=== PATIENT | male | born 1955 | race Caucasian/White ===

== ENCOUNTER → 2018-07-25 09:41 | Outpatient (CLI) | payer BC, SELFPAY ==
[2018-07-25 13:06] LABS: ALB/GLOB Ratio 0.9 RATIO (0.9-2.4); AST(SGOT) 25 U/L (15-37); Alanine Aminotransfer ALT/SGPT 52 U/L (16-61); Albumin, Serum 3.7 g/dL (3.2-5.0); Alkaline Phosphatase 79 U/L (45-117); Anion Gap 8 (5-15); BUN 19 mg/dL (7-18); BUN/Creat Ratio 18.4 RATIO (10-20); Calcium,Total 8.9 mg/dL (8.5-10.1); Chloride 106 mmol/L (98-107); Creatinine, Serum 1.03 mg/dL (0.70-1.30); EST Glomerular Filtration Rate 77 mL/min (>60); Est Glom Filt Rate - Afr Amer 94 mL/min (>60); Globulin 4.1 g/dL (2.2-4.2); Glucose 92 mg/dL (74-106); PSA,Total - Annual Screen 0.86 ng/mL (0.00-4.00); Potassium 3.9 mmol/L (3.5-5.1); Protein, Total 7.8 g/dL (6.4-8.2); Sodium Level 141 mmol/L (136-145)
== END ==
PROVIDERS: Family Provider Family Medicine; PCP Family Medicine; Referring Provider Family Medicine; Visit Provider Family Medicine
DX: Z00.00 Encounter for general adult medical examination without abnormal findings (principal); E78.5 Hyperlipidemia, unspecified
CPT/HCPCS: 36415; 80053; 84153; G0103

== ENCOUNTER → 2018-07-31 09:56 | Outpatient (CLI) | payer BC, SELFPAY ==
[2018-07-31 12:33] LABS: AST(SGOT) 20 U/L (15-37); Alanine Aminotransfer ALT/SGPT 43 U/L (16-61); Albumin, Serum 3.7 g/dL (3.2-5.0); Alkaline Phosphatase 81 U/L (45-117); Bilirubin, Direct 0.21 mg/dL (0.00-0.30); Globulin 3.7 g/dL (2.2-4.2); Protein, Total 7.4 g/dL (6.4-8.2)
== END ==
PROVIDERS: Family Provider Family Medicine; PCP Family Medicine; Referring Provider Family Medicine; Visit Provider Family Medicine
DX: R17 Unspecified jaundice (principal)
CPT/HCPCS: 36415; 80076

== ENCOUNTER 2019-01-06 19:34 | Inpatient (IN) | payer BC, SELFPAY ==
[2019-01-06] VITALS (9 sets, daily range): BP systolic 150–199; BP diastolic 89–102; PULSE 70–80; RESP 15–18; TEMP 36.5–36.9; O2SAT 94–99; BMI 35.2; BMI 36.0
--- NOTE | 2019-01-06 19:49 | EKG12_ITS ---
Test Reason : CP Blood Pressure : / mmHG Vent. Rate : 070 BPM Atrial Rate : 070 BPM P-R Int : 166 ms QRS Dur : 094 ms QT Int : 402 ms P-R-T Axes : 052 053 058 degrees QTc Int : 434 ms Normal sinus rhythm Normal ECG Confirmed by EDEN REMY, GANESH ([id number]), society editor ILEANA MIRELES ([id number]) on 01/09/2019 1:36:16 PM Referred By: ALEXI Confirmed By:GANESH HARMON MD
--- NOTE | 2019-01-06 19:49 | ED.VIS.GEN ---
History of Present Illness Chief Complaint: Chest Pain Informant: Patient Onset: Hours - 5-6 Context: Sudden Onset - w/ light exertion, walking for exercise; has not resolved since resting Timing: Continuous, Waxes and wanes Quality: pressure Location: substernal. no radiation. Current Severity: Mild Maximum Severity: Moderate Worsened by: nothing. nonpleuritic. Relieved by: nothing in particular. Associated Symptoms: none. Narrative: Patient states he has had heartburn before but this feels different. He took some Tums and and an acid capsule that may have been either H2 diamond or PPI, those medicines did not seem to do anything, he states usually when he takes these for his reflux symptoms his symptoms resolve quickly. He denies any nausea or vomiting. He has not tried to lie down to see if that changes anything. No shortness of breath, lightheadedness, he did feel a thump or 2 off and on but no skipping/racing palpitations. No diaphoresis that was not associated with his activity. He had a stress test 5 years ago or so that was unremarkable but no history of heart disease that he knows of. He does have a first-degree relative that had his first stent in his 50s, and multiple other family members with coronary issues. - Past Medical History (1) Hypertension Status: Chronic (2) Hyperlipidemia Status: Chronic Past Medical History - Allergies and Home Meds Allergies/Adverse Reactions: Allergies No Known Allergies Allergy (Verified 01/06/19 19:39) Primary Care Physician: Moshe Lehman MD [Primary Care Provider] - Lives: Spouse/ Significant Other Smoking Status: Never smoker Drugs: None Review of Systems General: Denies: Chills, Fever, Sweats Eyes: Denies: Visual changes - bilaterally, Diplopia ENT: Denies: Rhinorrhea, Sore throat Cardiovascular: Reports: Chest pain, Palpitations. Denies: Heart racing Respiratory: Denies: Dyspnea, Cough, Dyspnea on exertion Gastrointestinal: Denies: Abdominal pain, Nausea, Vomiting, Diarrhea, Melena, Hematochezia Genitourinary: Denies: Dysuria, Hematuria, Frequency Musculoskeletal: Denies: Back pain, Swelling, Extremity Pain Skin: Denies: Rash, Wounds Neurological: Denies: Headache, Weakness, Numbness Physical Exam Vital Signs/Narrative: Vital Signs Temp Pulse Resp BP 01/06/19 19:35 97.7 F L 78 15 199/102 H Inital Vital Signs reviewed: Yes General: Well nourished, Well developed, No Acute Distress Head: Normocephalic, Atraumatic Eyes: Perrl, EOMI ENT: Moist mucous membranes, No rhinorrhea Neck: Supple, Nontender, No lymphadenopathy, No JVD Cardiovascular: Regular rate, Regular rhythm, No murmurs Respiratory: No distress, CTA bilaterally, Chest nontender Abdomen: Soft, Nontender, Nondistended, Normal bowel sounds. Negative for: Guarding, Rebound tenderness Back: Nontender, Normal Inspection Extremities: Nontender, No edema. Negative for: Calf Tenderness Skin: Normal color, No rash Neurological: Alert, Oriented x3, Cranial nerves II-XII grossly intact, Normal Strength, Normal Sensation Psychological: Normal affect, Normal Mood Diagnostic/Tx/Re-eval 01/06/19 20:15 Chest PA and Lateral [RAD] Stat Laboratory Results 01/06/19 01/06/19 01/06/19 20:00 20:00 20:00 WBC 5.8 RBC 4.76 Hgb 14.6 Hct 43.3 MCV 91.0 MCH 30.7 MCHC 33.7 RDW 12.8 RDW Differential 42.4 Plt Count 174 MPV 9.1 Immature Gran % (Auto) 0.000 Neut % (Auto) 63.6 Lymph % (Auto) 24.7 [place] % (Auto) 9.7 Eos % (Auto) 1.7 Baso % (Auto) 0.3 Absolute Neuts (auto) 3.7 Absolute Lymphs (auto) 1.43 Total Counted Not Reportable APTT 30.3 Sodium 141 Potassium 3.8 Chloride 105 Carbon Dioxide 28.0 Anion Gap 8 BUN 19 H Creatinine 1.08 Estim Creat Clear Calc 76.84 Est GFR (MDRD) Af Amer 89 Est GFR (MDRD) Non-Af 73 BUN/Creatinine Ratio 17.6 Glucose 105 Calcium 9.2 Troponin I 0.531 H - Rhythm Strip Rhythm Strip: Sinus Rhythm Rate: 70 Ectopy: None - EKG Initial EKG Interpretation: Sinus Rhythm, No Acute Injury Pattern - Normal EKG. Normal axis. Normal intervals. - Medical Decision Making EKG appears normal, but his troponin returned elevated at 0.5. This suggests cardiac etiology of his discomfort. On reevaluation he states his discomfort is about completely gone and he declined any of the nitroglycerin, which is likely why his blood pressure is still in the 170s. I will placed nitroglycerin 1 inch on his chest, and after discussing with Dr. Whittington, will admit him to hospitalist after giving Lovenox subcu and Plavix 300 mg load. The rest of his blood tests and x-ray are unremarkable. ED Disposition - Plan for ED Patient: Disposition: Acute Care Hospital [facility] Diagnosis: ACS (acute coronary syndrome) Referrals: Moshe Lehman MD [Primary Care Provider] -
[2019-01-06] MEDS: Aspirin 81 MG TAB.CHEW 162 MG PO (20:02)
[2019-01-06] MEDS: 0.9% Normal Saline 1,000 ML 250 ML IV (20:02)
[2019-01-06 20:11] LABS: Absolute Lymphocyte Count 1.43 X10^3/ul (0.83-4.51); Absolute Neutrophil Count 3.7 X10^3/uL (2.0-7.7); Basophil# 0.02 X10^3/uL; Basophil% 0.3 % (0-1); Eosinophils% 1.7 % (0-5); Hematocrit 43.3 % (40-54); Hemoglobin 14.6 g/dl (13.0-16.5); Lymphocyte # 1.43 X10^3/ul (4.0); Lymphocyte % 24.7 % (19-41); Mean Corp Hgb Conc 33.7 g/gl (32-36); Mean Corpuscular Hgb 30.7 pg (27.0-32.0); Mean Platelet Vol. 9.1 fl (6.2-12.0); Monocyte# 0.56 X10^3/uL; Monocyte% 9.7 % (0-10); Neutrophil # 3.68 X10^3/uL (2.7-7.7); Neutrophil % 63.6 % (47-70); Platelet Count 174 K/mm3 (150-450); RBC Distribution Width CV 12.8 % (11.6-14.6); RBC Distribution Width SD 42.4 fl (35.1-43.9); Red Blood Count 4.76 M/mm3 (4.6-6.2); White Blood Count 5.8 K/mm3 (4.4-11.0)
[2019-01-06 20:12] LABS: POSITIVE COUNT NO; POSITIVE DIFFERENTIAL NO; POSITIVE MORPHOLOGY NO
--- NOTE | 2019-01-06 20:15 | RAD_ITS ---
HISTORY: mid chest pain onset todayno hx of heart lung disease no sx EXAM: XR Chest 2 Views: COMPARISON: None FINDINGS: LINES/DEVICES: None. LUNGS: Radiographically clear. No consolidation, edema or effusion. No pneumothorax. MEDIASTINUM AND CARDIOVASCULAR STRUCTURES: Cardiac silhouette not enlarged. Central airways and mediastinal contour are unremarkable. BONES AND SOFT TISSUES: Unremarkable. RAD/Chest PA and Lateral IMPRESSION: No radiographic evidence of acute cardiopulmonary disease. at 2127 Reported and signed by: Aniceto Petersen MD Electronically Signed: Aniceto Petersen, at 21:25 EDT Tel , Service support ,
[2019-01-06 20:20] LABS: Partial Thromboplast Time 30.3 Seconds (24.1-36.2)
[2019-01-06 20:29] LABS: Anion Gap 8 (5-15); BUN 19 mg/dL (7-18); BUN/Creat Ratio 17.6 RATIO (10-20); Calcium,Total 9.2 mg/dL (8.5-10.1); Chloride 105 mmol/L (98-107); Creatinine, Serum 1.08 mg/dL (0.70-1.30); EST Glomerular Filtration Rate 73 mL/min (>60); Est Glom Filt Rate - Afr Amer 89 mL/min (>60); Estimated Creatinine Clearance 76.84 ml/min; Glucose 105 mg/dL (74-106); Potassium 3.8 mmol/L (3.5-5.1); Sodium Level 141 mmol/L (136-145)
[2019-01-06] MEDS: Clopidogrel Bisulfate 300 MG Tablet PO (21:37)
[2019-01-06] MEDS: Enoxaparin 120 MG/0.8 ML Syringe SC (21:37)
[2019-01-06] MEDS: Nitroglycerin Oint 1 INCH PACKET TRANSDERM. (21:37)
--- NOTE | 2019-01-06 21:47 | PCM.CONS.C ---
Reason for Consult Date of Consultation: 01/06/19 Reason for Consultation: Chest discomfort History of Present Illness: The patient is a 63 year old M with no previous cardiac history who presented here to the emergency room complaining of chest discomfort starting this afternoon while he was taking his walk. It was shortly after he had eaten some lunch. There was no radiation per se of the discomfort but he felt it as a heaviness. There was no dizziness or diaphoresis no near syncope or syncope. He thinks he may have had this discomfort before but not as severe. He did take an antacid with no significant improvement. In the emergency room he was noted to be hypertensive and EKG was done which did not demonstrate any significant abnormality, but cardiac enzymes were noted to be abnormal and cardiology was called for further evaluation and management. He is currently pain-free. He is not had any dizziness or diaphoresis no near syncope or syncope no paroxysmal nocturnal dyspnea orthopnea and no pedal edema or claudication. He did have a stress test he says approximately 5 years ago which was normal. [] Past Medical History Allergies/Adverse Reactions: Allergies No Known Allergies Allergy (Verified 01/06/19 19:39) Home Medications: Ambulatory Orders Medication Instructions Recorded Aspirin, Baby 81 mg PO DAILY 01/06/19 Atorvastatin Calcium [Lipitor] 10 mg PO QODAY 01/06/19 Past Medical History (Chronic Problems): Chronic Problems Hypertension (Chronic) Hyperlipidemia (Chronic) Lives: Spouse/ Significant Other Smoking Status: Never smoker Alcohol: Occasional Drugs: None Review of Systems - Review of Systems General: Denies: Fever, Night Sweats, Fatigue HEENT: Denies: Vision Change Cardiovascular: Reports: Chest Discomfort, Chest Discomfort at Rest, Chest Discomfort with Exertion. Denies: Shortness of Breath, Orthopnea, PND, Peripheral Edema, Palpitations, Lightheadedness, Dizziness, Near Syncope, Syncope Respiratory: Denies: Cough, Sputum Production, Hemoptysis Gastrointestinal: Reports: Indigestion. Denies: Hematemesis, Hematochezia, Melena Genitourinary: Denies: Dysuria, Hematuria Muscoloskeletal: Denies: Myalgias Skin: Denies: Rash Neurological: Denies: Dizziness Psychiatric: Denies: Anxiety Endocrine: Denies: Unexplained Weight Loss Hematologic/ Lymphatic: Denies: Anemia Subjectve: Pleasant gentleman in no apparent distress Objective: Vital Signs Temp Pulse Resp BP Pulse Ox 97.7 F L 77 18 162/91 H 98 01/06/19 19:35 01/06/19 21:37 01/06/19 21:03 01/06/19 21:37 01/06/19 21:03 Oxygen Flow Rate (L/min) 2 Oxygen Delivery Method Room Air Weight: 260 lb Body Mass Index (BMI) 35.2 General: Awake, Alert, Oriented x 3 HEENT: PERRL, EOMI, Sclera Non Icteric Neck: Supple, Good ROM, No Lymph Node Enlargement Lungs: Clear to auscultation Cardiovascular: Regular Rhythm, Normal S1, Normal S2, No Murmurs, No Rubs, No Gallops Vascular: No Carotid Bruits, Normal Femoral Pulses, Normal Radial Pulses, Normal Dorsalis Pedal Pulse, Normal Posterior Tibial Pulses Abdomen: Bowel Sounds Present, Soft, Non Tender, No HSM, No Organomegaly Extremities: No Cyanosis, No Clubbing, No edema Musculoskeletal: No Erythema Skin: No Rashes Lymphatic: No Lymph Node Enlargement Neurological: No Focal Motor or Sensory Deficit Psych/Mental Status: Appropriate 01/06/19 20:00: WBC 5.8, RBC 4.76, Hgb 14.6, Hct 43.3, MCV 91.0, MCH 30.7, MCHC 33.7, RDW 12.8, RDW Differential 42.4, Plt Count 174, MPV 9.1, Immature Gran % (Auto) 0.000, Neut % (Auto) 63.6, Lymph % (Auto) 24.7, [place] % (Auto) 9.7, Eos % (Auto) 1.7, Baso % (Auto) 0.3, Absolute Neuts (auto) 3.7, Total Counted Not Reportable 01/06/19 20:00: APTT 30.3 01/06/19 20:00: Sodium 141, Potassium 3.8, Chloride 105, Carbon Dioxide 28.0, Anion Gap 8, BUN 19 H, Creatinine 1.08, Est GFR (MDRD) Af Amer 89, Est GFR (MDRD) Non-Af 73, BUN/Creatinine Ratio 17.6, Glucose 105, Calcium 9.2, Troponin I 0.531 H Rhythm: EKG: Normal sinus rhythm with a rate of 70 bpm and no acute changes Assessment/Plan 1. Non-ST elevation myocardial infarction Patient presents with chest discomfort and abnormal cardiac enzymes suggestive of an acute coronary syndrome. He does have some risk factors with hypertension, obesity, hyperlipidemia. I have discussed this with him and his that with a troponin level it may be appropriate to proceed directly to a cardiac catheterization. The risk benefits alternatives have been explained to him he understands and agrees to proceed. Will continue him on the aspirin Load him with clopidogrel and a maintenance dose Continue him on the statin Start beta-diamond Scheduled for cardiac catheterization in a.m. 2. Hypertension He is currently not treated for the above but more than likely he is hypertensive. Will likely start him on an PHILOMENA inhibitor in addition to the beta-diamond. Further recommendations will depend on the results of the above. An echocardiogram will be performed to assess his left ventricular function and wall thickness 3. Hyperlipidemia Continue high intensity statin Thank you for allowing me to participate in the care of your patient. Please don't hesitate to call if any issues arise
--- NOTE | 2019-01-06 21:51 | CON.PCM_ITS ---
Reason for Consult Date of Consultation: 01/06/19 Reason for Consultation: Chest discomfort History of Present Illness: The patient is a 63 year old M with no previous cardiac history who presented here to the emergency room complaining of chest discomfort starting this afternoon while he was taking his walk. It was shortly after he had eaten some lunch. There was no radiation per se of the discomfort but he felt it as a heaviness. There was no dizziness or diaphoresis no near syncope or syncope. He thinks he may have had this discomfort before but not as severe. He did take an antacid with no significant improvement. In the emergency room he was noted to be hypertensive and EKG was done which did not demonstrate any significant abnormality, but cardiac enzymes were noted to be abnormal and cardiology was called for further evaluation and management. He is currently pain-free. He is not had any dizziness or diaphoresis no near syncope or syncope no paroxysmal nocturnal dyspnea orthopnea and no pedal edema or claudication. He did have a stress test he says approximately 5 years ago which was normal. [] Past Medical History Allergies/Adverse Reactions: Allergies No Known Allergies Allergy (Verified 01/06/19 19:39) Home Medications: Ambulatory Orders Medication Instructions Recorded Aspirin, Baby 81 mg PO DAILY 01/06/19 Atorvastatin Calcium [Lipitor] 10 mg PO QODAY 01/06/19 Past Medical History (Chronic Problems): Chronic Problems Hypertension (Chronic) Hyperlipidemia (Chronic) Lives: Spouse/ Significant Other Smoking Status: Never smoker Alcohol: Occasional Drugs: None Review of Systems - Review of Systems General: Denies: Fever, Night Sweats, Fatigue HEENT: Denies: Vision Change Cardiovascular: Reports: Chest Discomfort, Chest Discomfort at Rest, Chest Discomfort with Exertion. Denies: Shortness of Breath, Orthopnea, PND, Peripheral Edema, Palpitations, Lightheadedness, Dizziness, Near Syncope, Syn cope Respiratory: Denies: Cough, Sputum Production, Hemoptysis Gastrointestinal: Reports: Indigestion. Denies: Hematemesis, Hematochezia, Melena Genitourinary: Denies: Dysuria, Hematuria Muscoloskeletal: Denies: Myalgias Skin: Denies: Rash Neurological: Denies: Dizziness Psychiatric: Denies: Anxiety Endocrine: Denies: Unexplained Weight Loss Hematologic/ Lymphatic: Denies: Anemia Subjectve: Pleasant gentleman in no apparent distress Objective: Vital Signs Temp Pulse Resp BP Pulse Ox 97.7 F L 77 18 162/91 H 98 01/06/19 19:35 01/06/19 21:37 01/06/19 21:03 01/06/19 21:37 01/06/19 21:03 Oxygen Flow Rate (L/min) 2 Oxygen Delivery Method Room Air Weight: 260 lb Body Mass Index (BMI) 35.2 General: Awake, Alert, Oriented x 3 HEENT: PERRL, EOMI, Sclera Non Icteric Neck: Supple, Good ROM, No Lymph Node Enlargement Lungs: Clear to auscultation Cardiovascular: Regular Rhythm, Normal S1, Normal S2, No Murmurs, No Rubs, No Gallops Vascular: No Carotid Bruits, Normal Femoral Pulses, Normal Radial Pulses, Normal Dorsalis Pedal Pulse, Normal Posterior Tibial Pulses Abdomen: Bowel Sounds Present, Soft, Non Tender, No HSM, No Organomegaly Extremities: No Cyanosis, No Clubbing, No edema Musculoskeletal: No Erythema Skin: No Rashes Lymphatic: No Lymph Node Enlargement Neurological: No Focal Motor or Sensory Deficit Psych/Mental Status: Appropriate 01/06/19 20:00: WBC 5.8, RBC 4.76, Hgb 14.6, Hct 43.3, MCV 91.0, MCH 30.7, MCHC 33.7, RDW 12.8, RDW Differential 42.4, Plt Count 174, MPV 9.1, Immature Gran % (Auto) 0.000, Neut % (Auto) 63.6, Lymph % (Auto) 24.7, [place] % (Auto) 9.7, Eos % (Auto) 1.7, Baso % (Auto) 0.3, Absolute Neuts (auto) 3.7, Total Counted Not Reportable 01/06/19 20:00: APTT 30.3 01/06/19 20:00: Sodium 141, Potassium 3.8, Chloride 105, Carbon Dioxide 28.0, Anion Gap 8, BUN 19 H, Creatinine 1.08, Est GFR (MDRD) Af Amer 89, Est GFR (MDRD) Non-Af 73, BUN/Creatinine Ratio 17.6, Glucose 105, Calcium 9.2, Troponin I 0.531 H Rhythm: EKG: Normal sinus rhythm with a rate of 70 bpm and no acute changes Assessment/Plan 1. Non-ST elevation myocardial infarction * Patient presents with chest discomfort and abnormal cardiac enzymes suggestive of an acute coronary syndrome. He does have some risk factors with hypertension, obesity, hyperlipidemia. I have discussed this with him and his that with a troponin level it may be appropriate to proceed directly to a cardiac catheterization. The risk benefits alternatives have been explained to him he understands and agrees to proceed. * Will continue him on the aspirin * Load him with clopidogrel and a maintenance dose * Continue him on the statin * Start beta-diamond * Scheduled for cardiac catheterization in a.m. * 2. Hypertension * He is currently not treated for the above but more than likely he is hypertensive. * Will likely start him on an PHILOMENA inhibitor in addition to the beta-diamond. * Further recommendations will depend on the results of the above. * An echocardiogram will be performed to assess his left ventricular function and wall thickness * 3. Hyperlipidemia * Continue high intensity statin * * Thank you for allowing me to participate in the care of your patient. Please don't hesitate to call if any issues arise
--- NOTE | 2019-01-06 21:51 | ECHOCS_ITS ---
Reason For Study: CP Procedure This was a 2D Doppler, Color Flow transthoracic echocardiogram. Contrast injection was performed. Exam performed portable in patient room. Left Ventricle Normal LV size. Left ventricular systolic function is normal. The estimated ejection fraction is 60 %. Stage 2 diastolic dysfunction. No regional wall motion abnormalities noted. Right Ventricle Normal RV size. Normal systolic function. Atria Normal left atrium. Normal right atrium. Mitral Valve Normal mitral valve. Tricuspid Valve Normal tricuspid valve. Mild (1+) tricuspid valve insufficiency. Pulmonary artery systolic pressure is 26 mmHg. Pulmonic Valve Normal pulmonic valve. Great Vessels Normal aortic root. The pulmonary artery is normal size. Normal inferior vena cava. Pericardium/Pleural No pericardial effusion. Medication Diluted definity 4ml given slow IV push to enhance endocardial definition. MMode/2D Measurements & Calculations LVIDd: 4.4 cm IVSd: 1.2 cm Ao root diam: 3.8 cm LVIDs: 2.8 cm LVPWd: 1.2 cm LA dimension: 3.7 cm FS: 37.5 % LAV(MOD-bp): 57.2 ml LA A4 area: 16.0 cm2 RA A4 area: 14.1 cm2 LAV(MOD-bp) Indexed: 24.1 ml/m2 LAV(MOD-sp2): 59.6 ml LAV(MOD-sp4): 43.6 ml Time Measurements MV dec time: 0.19 sec Doppler Measurements & Calculations MV E max chaim: 91.4 cm/sec Lat Peak E' Chaim: 11.2 cm/sec Med Peak E' Chaim: 9.3 cm/sec MV A max chaim: 87.2 cm/sec E/E' lat: 8.2 E/E' med: 9.9 MV E/A: 1.0 MV V2 max: 103.0 cm/sec MV P1/2t max chaim: 88.6 cm/sec Ao V2 max: 119.4 cm/sec MV max P.2 mmHg MV P1/2t: 100.9 msec Ao max P.7 mmHg MV V2 mean: 60.3 cm/sec MV dec slope: 257.1 cm/sec2 Ao V2 mean: 80.1 cm/sec MV mean P.7 mmHg MVA(P1/2t): 2.2 cm2 Ao mean P.0 mmHg MV V2 VTI: 29.7 cm Ao V2 VTI: 25.0 cm LV V1 max: 96.3 cm/sec PA V2 max: 81.9 cm/sec TR max chaim: 236.4 cm/sec LV V1 max P.7 mmHg TR max P.3 mmHg LV V1 mean P.2 mmHg LV V1 mean: 69.4 cm/sec LV V1 VTI: 23.1 cm Interpretation Summary Normal LV size. Left ventricular systolic function is normal. The estimated ejection fraction is 60 %. Stage 2 diastolic dysfunction. Mild (1+) tricuspid valve insufficiency. Contrast injection was performed. Ordering Physician: Prasanna Whittington Performed By: Lorenzo Pemberton RCS
--- NOTE | 2019-01-06 22:16 | EKG12_ITS ---
Test Reason : POST PCI Blood Pressure : / mmHG Vent. Rate : 062 BPM Atrial Rate : 062 BPM P-R Int : 170 ms QRS Dur : 092 ms QT Int : 404 ms P-R-T Axes : 040 034 034 degrees QTc Int : 410 ms Normal sinus rhythm Normal ECG No previous ECGs available Confirmed by AMADA REMY, ANDRES ([id number]), deputy editor in chief ILEANA MIRELES ([id number]) on 01/21/2019 1:36:33 PM Referred By: SIXTO Confirmed By:ANDRES YBARRA MD
--- NOTE | 2019-01-06 22:39 | PCM.HP.STD ---
Problem List (1) Hypertension Status: Chronic (2) Hyperlipidemia Status: Chronic (3) ACS (acute coronary syndrome) Status: Acute (4) NSTEMI (non-ST elevated myocardial infarction) Status: Acute History of Present Illness Date of Admission: 01/06/19 Chief Complaint: chest pain The patient is a 63 year old M with a significant history of hypertension and hyperlipidemia who presented to the emergency department because of excruciating substernal chest pain that started on the day of his admission. His chest pain radiated to in between his scapula. He denies any nausea, vomiting, diaphoresis or shortness of breath. He was walking when his chest pain started. He described the chest pain as pressurized. His chest pain gradually improved but it reoccurred before coming to the emergency department. His pain improved while at the emergency department. At emergency department he had a normal sinus rhythm. However his troponin was elevated. Nitropaste was placed on patient's chest and patient received therapeutic dose of subcutaneous Lovenox. Emergency department doctor discussed the case with instructor apparel manufacture, Dr. Whittington. Cardiology will follow patient. Past Medical History Past Medical History (Chronic Problems): Chronic Problems Hypertension (Chronic) Hyperlipidemia (Chronic) Allergies No Known Allergies Allergy (Verified 01/06/19 19:39) Home Medications: Ambulatory Orders Medication Instructions Recorded Aspirin, Baby 81 mg PO DAILY 01/06/19 Atorvastatin Calcium [Lipitor] 10 mg PO QODAY 01/06/19 Surgical History: - - Surgery and left ankle. Lives: Spouse/ Significant Other Smoking Status: Former smoker Alcohol: Occasional Drugs: None - *Family History Maternal History Items: Heart Disease - His mother had a CABG in his 70s. His brother had a coronary stent in his 60s. Paternal History Items: Heart Disease - His father had CABG in his late 60s Review of Systems Constitutional: Denies: Chills, Fever, Weight Change HEENT: Denies: Head Aches, Sinus Congestion, Sinus Drainage Cardiovascular: Reports: Chest Pain. Denies: Palpitations Respiratory: Denies: Cough, Shortness of breath at rest, Sputum production Gastrointestinal: Denies: Abdominal Pain, Nausea, Vomiting Genitourinary: Denies: Dysuria Musculoskeletal: Reports: Back Pain - In between shoulders. Denies: Joint Pain, Joint Tenderness Skin: Denies: Rash, Wounds Neurological: Denies: Numbness, Tingling, Focal weakness Psychiatric: Denies: Anxiety, Depression, Homicidal Ideations, Suicidal Ideations Hematologic/ Lymphatic: Denies: Easy Bruising, Easy Bleeding VTE Information - Inpt Only VTE Present on Admission: No VTE Mechan Device Prophylaxis: None VTE Pharm Prophylaxis ordered?: No Reason prophylaxis not ordered:: Treatment Not Indicated - Started on therapeutic dose of Lovenox for NSTEMI Patient Problems: Active and Suspected Problems ACS (acute coronary syndrome) (Acute) NSTEMI (non-ST elevated myocardial infarction) (Acute) - Physical Exam General: Alert, Oriented x3, Cooperative HEENT: Atraumatic, PERRLA, EOMI, Normocephalic Neck: Supple, No JVD, Negative Carotid Bruits Lungs: Clear to auscultation, Normal air movement Cardiovascular: Regular rate, No murmurs Abdomen: Bowel Sounds Present, Soft, Non Tender Extremities: No edema, Capillary Refill Less than 3 Seconds Skin: No rashes, No breakdown Musculoskeletal: No Tenderness to Palpation of Joints or Extremities Neurological: Neuro grossly intact Psych/Mental Status: Normal Affect, Appropriate Vital Signs Temp Pulse Resp BP Pulse Ox 98.5 F 70 18 150/89 H 94 01/06/19 22:28 01/06/19 22:28 01/06/19 22:28 01/06/19 22:28 01/06/19 22:28 Oxygen Flow Rate (L/min) 2 Oxygen Delivery Method Room Air Weight: 120.5 kg Body Mass Index (BMI) 36.0 Laboratory Tests Past 24 Hrs 01/06/19 01/06/19 01/06/19 20:00 20:00 20:00 WBC 5.8 RBC 4.76 Hgb 14.6 Hct 43.3 MCV 91.0 MCH 30.7 MCHC 33.7 RDW 12.8 RDW Differential 42.4 Plt Count 174 MPV 9.1 Immature Gran % (Auto) 0.000 Neut % (Auto) 63.6 Lymph % (Auto) 24.7 [place] % (Auto) 9.7 Eos % (Auto) 1.7 Baso % (Auto) 0.3 Absolute Neuts (auto) 3.7 Absolute Lymphs (auto) 1.43 Total Counted Not Reportable APTT 30.3 Sodium 141 Potassium 3.8 Chloride 105 Carbon Dioxide 28.0 Anion Gap 8 BUN 19 H Creatinine 1.08 Estim Creat Clear Calc 76.84 Est GFR (MDRD) Af Amer 89 Est GFR (MDRD) Non-Af 73 BUN/Creatinine Ratio 17.6 Glucose 105 Calcium 9.2 Troponin I 0.531 H Assessment/Plan All Active Problems ACS (acute coronary syndrome) (Acute) NSTEMI (non-ST elevated myocardial infarction) (Acute) The patient is a 63 year old M with a significant history of hypertension and hyperlipidemia who presented to the emergency department because of excruciating substernal chest pain and with a positive troponin consistent with non-ST elevation [place]. NSTEMI Admit to a monitored bed on pcu CXR independently reviewed confirms no acute cardiopulmonary process. EKG independently reviewed confirms sinus rhythm Received aspirin 162 mg at the emergency department. ASA 81 mg p.o. daily We will escalate his home statin to high intensity statin qhs. Will check lipid panel. Received therapeutic Lovenox subcutaneous at the emergency department. Nitroglycerin paste was placed at the emergency department;will continue His first troponin was 0.53. Will trend troponin. Received beta-diamond at emergency department. Stat EKG as needed for chest pain Cardiology is following patient. We will hydrate with normal saline IV for possible cardiac cath. We will keep patient n.p.o after midnight. Hypertension On presentation his blood pressure was not within goal. Patient received metoprolol succinate x1 in the emergency department. Metoprolol daily was scheduled by cardiology. Trend blood pressure and adjust blood pressure medications. DVT prophylaxis Not indicated. Patient received therapeutic Lovenox at the emergency department. Code Visit Inpatient E&M: 58802 Init Hosp L3
[2019-01-06] MEDS: 0.9% Normal Saline 1,000 ML 100 ML IV (22:55)
[2019-01-06] MEDS: Metoprolol(XL)Succ 50 MG Tablet PO (23:02)
[2019-01-06] MEDS: Atorvastatin Calcium 80 MG Tablet PO (23:02)
[2019-01-07] VITALS (29 sets, daily range): BP systolic 105–148; BP diastolic 54–82; PULSE 58–87; RESP 8–26; TEMP 36.6–36.9; O2SAT 93–98; BMI 35.9
[2019-01-07 02:23] LABS: Absolute Lymphocyte Count 1.98 X10^3/ul (0.83-4.51); Basophil# 0.03 X10^3/uL; Basophil% 0.5 % (0-1); Eosinophil# 0.13 X10^3/uL; Eosinophils% 2.3 % (0-5); Hematocrit 39.8 % (40-54); Hemoglobin 13.4 g/dl (13.0-16.5); Lymphocyte # 1.98 X10^3/ul (4.0); Lymphocyte % 34.6 % (19-41); Mean Corp Hgb Conc 33.7 g/gl (32-36); Mean Corpuscular Hgb 31.1 pg (27.0-32.0); Mean Corpuscular Volume 92.3 fL (80-94); Monocyte# 0.61 X10^3/uL; Monocyte% 10.7 % (0-10); Neutrophil # 2.96 X10^3/uL (2.7-7.7); Neutrophil % 51.7 % (47-70); Platelet Count 163 K/mm3 (150-450); RBC Distribution Width CV 12.8 % (11.6-14.6); RBC Distribution Width SD 42.1 fl (35.1-43.9); Red Blood Count 4.31 M/mm3 (4.6-6.2); White Blood Count 5.7 K/mm3 (4.4-11.0)
[2019-01-07 02:25] LABS: POSITIVE COUNT NO; POSITIVE DIFFERENTIAL NO; POSITIVE MORPHOLOGY NO
[2019-01-07 02:31] LABS: International Normalized Ratio 1.1; Prothrombin Time (Protime)PT. 13.5 SECONDS (11.7-14.9)
[2019-01-07 02:32] LABS: Partial Thromboplast Time 39.9 Seconds (24.1-36.2)
[2019-01-07 02:46] LABS: Anion Gap 5 (5-15); BUN 15 mg/dL (7-18); BUN/Creat Ratio 16.1 RATIO (10-20); Calcium,Total 8.7 mg/dL (8.5-10.1); Chloride 108 mmol/L (98-107); Cholesterol 143 mg/dL (200); Creatinine, Serum 0.93 mg/dL (0.70-1.30); EST Glomerular Filtration Rate 87 mL/min (>60); Est Glom Filt Rate - Afr Amer 105 mL/min (>60); Estimated Creatinine Clearance 89.24 ml/min; Glucose 105 mg/dL (74-106); High Density Lipoprotein 49 mg/dL; Potassium 3.6 mmol/L (3.5-5.1); Sodium Level 141 mmol/L (136-145); Triglycerides 136 mg/dL; Very Low Density Lipoprotein 27 mg/dL (5-40)
[2019-01-07 02:58] LABS: Color, Urine Yellow (Yellow); Glucose, Dipstick Normal (Normal); Ketone-Dipstick Negative (Negative); Leukocyte Esterase-Dipstick Negative /ul (Negative); Nitrite-Dipstick Negative (Negative); Occult Blood-Urine Negative /ul (Negative); Protein-Dipstick Negative (Negative); Specific Gravity, Urine 1.015 (1.002-1.030); Urine Bilirubin Dipstick Negative (Negative); Urine Clarity Clear (Clear); Urine Urobilinogen Normal (Normal); Urine pH 6.5 (5.0 - 8.0)
--- NOTE | 2019-01-07 05:55 | EKG12_ITS ---
Test Reason : AM EKG Blood Pressure : / mmHG Vent. Rate : 064 BPM Atrial Rate : 064 BPM P-R Int : 160 ms QRS Dur : 092 ms QT Int : 408 ms P-R-T Axes : 040 029 035 degrees QTc Int : 420 ms Normal sinus rhythm Normal ECG When compared with ECG of 06-JAN-2019 22:35, MANUAL COMPARISON REQUIRED, DATA IS UNCONFIRMED Confirmed by AMADA REMY, ANDRES ([id number]), order editor ILEANA MIRELES ([id number]) on 01/08/2019 1:08:57 PM Referred By: DR VERAS Confirmed By:ANDRES YBARRA MD
[2019-01-07] MEDS: Aspirin E.C. 81 MG Tablet PO (05:56)
[2019-01-07] MEDS: Metoprolol(XL)Succ 50 MG Tablet PO (05:56)
[2019-01-07] MEDS: Clopidogrel Bisulfate 75 MG Tablet PO (05:57)
[2019-01-07] MEDS: 0.9% Normal Saline 1,000 ML 15 ML IV (08:39)
--- NOTE | 2019-01-07 09:54 | CASEMGMT ---
According to [place] website, the following are in-network tertiary facilities: [facility], [facility], [facility], [facility], [facility], [facility], [facility], [facility], [facility], and . Art [facility] CM
--- NOTE | 2019-01-07 10:24 | PCM.PN.CARD ---
Subjectve: Patient seen and evaluated. Objective: Vital Signs Temp Pulse Resp BP Pulse Ox 98.3 F 87 16 111/68 98 01/07/19 05:55 01/07/19 06:55 01/07/19 05:55 01/07/19 05:56 01/07/19 05:55 Oxygen Flow Rate (L/min) 2 Oxygen Delivery Method Room Air Weight: 265 lb 10.512 oz Body Mass Index (BMI) 36.0 Intake and Output for Last 24 Hours 01/05/19 01/06/19 01/07/19 23:59 23:59 23:59 Intake Total 362 / 362 570 / 570 Balance 362 / 362 570 / 570 General: Awake, Alert, Oriented x 3 HEENT: PERRL, EOMI, Sclera Non Icteric Neck: Supple, Good ROM, No Lymph Node Enlargement Lungs: Clear to auscultation Cardiovascular: Regular Rhythm, Normal S1, Normal S2, No Murmurs, No Rubs, No Gallops Vascular: No Carotid Bruits, Normal Femoral Pulses, Normal Radial Pulses, Normal Dorsalis Pedal Pulse, Normal Posterior Tibial Pulses Abdomen: Bowel Sounds Present, Soft, Non Tender, No HSM, No Organomegaly Extremities: No Cyanosis, No Clubbing, No edema Musculoskeletal: No Erythema Skin: No Rashes Lymphatic: No Lymph Node Enlargement Neurological: No Focal Motor or Sensory Deficit Psych/Mental Status: Appropriate 01/06/19 20:00: WBC 5.8, RBC 4.76, Hgb 14.6, Hct 43.3, MCV 91.0, MCH 30.7, MCHC 33.7, RDW 12.8, RDW Differential 42.4, Plt Count 174, MPV 9.1, Immature Gran % (Auto) 0.000, Neut % (Auto) 63.6, Lymph % (Auto) 24.7, [place] % (Auto) 9.7, Eos % (Auto) 1.7, Baso % (Auto) 0.3, Absolute Neuts (auto) 3.7, Total Counted Not Reportable 01/06/19 20:00: APTT 30.3 01/06/19 20:00: Sodium 141, Potassium 3.8, Chloride 105, Carbon Dioxide 28.0, Anion Gap 8, BUN 19 H, Creatinine 1.08, Est GFR (MDRD) Af Amer 89, Est GFR (MDRD) Non-Af 73, BUN/Creatinine Ratio 17.6, Glucose 105, Calcium 9.2, Troponin I 0.531 H 01/06/19 22:40: Troponin I 1.190 H* 01/07/19 02:13: PT 13.5, INR 1.1, APTT 39.9 H 01/07/19 02:13: Sodium 141, Potassium 3.6, Chloride 108 H, Carbon Dioxide 28.0, Anion Gap 5, BUN 15, Creatinine 0.93, Est GFR (MDRD) Af Amer 105, Est GFR (MDRD) Non-Af 87, BUN/Creatinine Ratio 16.1, Glucose 105, Calcium 8.7, Triglycerides 136, Cholesterol 143, LDL Cholesterol 67, VLDL Cholesterol 27, HDL Cholesterol 49 01/07/19 02:13: Troponin I 1.570 H* 01/07/19 02:13: WBC 5.7, RBC 4.31 L, Hgb 13.4, Hct 39.8 L, MCV 92.3, MCH 31.1, MCHC 33.7, RDW 12.8, RDW Differential 42.1, Plt Count 163, MPV 9.0, Immature Gran % (Auto) 0.200, Neut % (Auto) 51.7, Lymph % (Auto) 34.6, [place] % (Auto) 10.7 H, Eos % (Auto) 2.3, Baso % (Auto) 0.5, Absolute Neuts (auto) 3.0, Total Counted Not Reportable 01/07/19 02:50: Urine Color Yellow, Urine Clarity Clear, Urine pH 6.5, Ur Specific [place] 1.015, Urine Protein Negative, Urine Glucose (UA) Normal, Urine Ketones Negative, Urine Occult Blood Negative, Urine Nitrite Negative, Urine Bilirubin Negative, Urine Urobilinogen Normal, Ur Leukocyte Esterase Negative Rhythm: EKG: ECHO: Stress Test: Cardiac Cath: PCI: CT Surgery: Holter monitor: EPS: PPM: CXR: Chest CT Scan: Medical Necessity - Tobacco Use Smoking Status: Former smoker Assessment/Plan 1. Non-ST elevation myocardial infarction Patient presents with chest discomfort and abnormal cardiac enzymes suggestive of an acute coronary syndrome. He does have some risk factors with hypertension, obesity, hyperlipidemia. I have discussed this with him and his that with a troponin level it may be appropriate to proceed directly to a cardiac catheterization. Cardiac catheterization demonstrated the following: Left main coronary artery which is normal Left anterior descending artery with proximal 80% stenosis and mid 50-60% stenosis First diagonal vessel with proximal 50% stenosis Left circumflex artery with first obtuse marginal branch with a long 80-90% stenosis Dominant large right coronary artery with posterior descending artery with 90% stenosis Preserved ejection fraction with inferior hypokinesis Based on the above angiographic findings would recommend multivessel angioplasty. The above was discussed with interventionalist as well as patient's family and they are in agreement. 2. Hypertension He is currently not treated for the above but more than likely he is hypertensive. Will likely start him on an PHILOMENA inhibitor in addition to the beta-diamond. Further recommendations will depend on the results of the above. An echocardiogram will be performed to assess his left ventricular function and wall thickness 3. Hyperlipidemia Continue high intensity statin Thank you for allowing me to participate in the care of your patient. Please don't hesitate to call if any issues arise
--- NOTE | 2019-01-07 10:27 | PN.CARD_ITS ---
Subjectve: Patient seen and evaluated. Objective: Vital Signs Temp Pulse Resp BP Pulse Ox 98.3 F 87 16 111/68 98 01/07/19 05:55 01/07/19 06:55 01/07/19 05:55 01/07/19 05:56 01/07/19 05:55 Oxygen Flow Rate (L/min) 2 Oxygen Delivery Method Room Air Weight: 265 lb 10.512 oz Body Mass Index (BMI) 36.0 Intake and Output for Last 24 Hours 01/05/19 01/06/19 01/07/19 23:59 23:59 23:59 Intake Total 362 / 362 570 / 570 Balance 362 / 362 570 / 570 General: Awake, Alert, Oriented x 3 HEENT: PERRL, EOMI, Sclera Non Icteric Neck: Supple, Good ROM, No Lymph Node Enlargement Lungs: Clear to auscultation Cardiovascular: Regular Rhythm, Normal S1, Normal S2, No Murmurs, No Rubs, No Gallops Vascular: No Carotid Bruits, Normal Femoral Pulses, Normal Radial Pulses, Normal Dorsalis Pedal Pulse, Normal Posterior Tibial Pulses Abdomen: Bowel Sounds Present, Soft, Non Tender, No HSM, No Organomegaly Extremities: No Cyanosis, No Clubbing, No edema Musculoskeletal: No Erythema Skin: No Rashes Lymphatic: No Lymph Node Enlargement Neurological: No Focal Motor or Sensory Deficit Psych/Mental Status: Appropriate 01/06/19 20:00: WBC 5.8, RBC 4.76, Hgb 14.6, Hct 43.3, MCV 91.0, MCH 30.7, MCHC 33.7, RDW 12.8, RDW Differential 42.4, Plt Count 174, MPV 9.1, Immature Gran % (Auto) 0.000, Neut % (Auto) 63.6, Lymph % (Auto) 24.7, [place] % (Auto) 9.7, Eos % (Auto) 1.7, Baso % (Auto) 0.3, Absolute Neuts (auto) 3.7, Total Counted Not Reportable 01/06/19 20:00: APTT 30.3 01/06/19 20:00: Sodium 141, Potassium 3.8, Chloride 105, Carbon Dioxide 28.0, Anion Gap 8, BUN 19 H, Creatinine 1.08, Est GFR (MDRD) Af Amer 89, Est GFR (MDRD) Non-Af 73, BUN/Creatinine Ratio 17.6, Glucose 105, Calcium 9.2, Troponin I 0.531 H 01/06/19 22:40: Troponin I 1.190 H* 01/07/19 02:13: PT 13.5, INR 1.1, APTT 39.9 H 01/07/19 02:13: Sodium 141, Potassium 3.6, Chloride 108 H, Carbon Dioxide 28.0, Anion Gap 5, BUN 15, Creatinine 0.93, Est GFR (MDRD) Af Amer 105, Est GFR (MDRD) Non-Af 87, BUN/Creatinine Ratio 16.1, Glucose 105, Calcium 8.7, Triglycerides 136, Cholesterol 143, LDL Cholesterol 67, VLDL Cholesterol 27, HDL Cholesterol 49 01/07/19 02:13: Troponin I 1.570 H* 01/07/19 02:13: WBC 5.7, RBC 4.31 L, Hgb 13.4, Hct 39.8 L, MCV 92.3, MCH 31.1, MCHC 33.7, RDW 12.8, RDW Differential 42.1, Plt Count 163, MPV 9.0, Immature Gran % (Auto) 0.200, Neut % (Auto) 51.7, Lymph % (Auto) 34.6, [place] % (Auto) 10.7 H, Eos % (Auto) 2.3, Baso % (Auto) 0.5, Absolute Neuts (auto) 3.0, Total Counted Not Reportable 01/07/19 02:50: Urine Color Yellow, Urine Clarity Clear, Urine pH 6.5, Ur Specific [place] 1.015, Urine Protein Negative, Urine Glucose (UA) Normal, Urine Ketones Negative, Urine Occult Blood Negative, Urine Nitrite Negative, Urine Bilirubin Negative, Urine Urobilinogen Normal, Ur Leukocyte Esterase Negative Rhythm: EKG: ECHO: Stress Test: Cardiac Cath: PCI: CT Surgery: Holter monitor: EPS: PPM: CXR: Chest CT Scan: Medical Necessity - Tobacco Use Smoking Status: Former smoker Assessment/Plan 1. Non-ST elevation myocardial infarction * Patient presents with chest discomfort and abnormal cardiac enzymes suggestive of an acute coronary syndrome. He does have some risk factors with hypertension, obesity, hyperlipidemia. I have discussed this with him and his that with a troponin level it may be appropriate to proceed directly to a cardiac catheterization. * Cardiac catheterization demonstrated the following: Left main coronary artery which is normal Left anterior descending artery with proximal 80% stenosis and mid 50-60% stenosis First diagonal vessel with proximal 50% stenosis Left circumflex artery with first obtuse marginal branch with a long 80-90% stenosis Dominant large right coronary artery with posterior descending artery with 90% stenosis Preserved ejection fraction with inferior hypokinesis Based on the above angiographic findings would recommend multivessel angioplasty. The above was discussed with interventionalist as well as patient's family and they are in agreement. 2. Hypertension * He is currently not treated for the above but more than likely he is hypertensive. * Will likely start him on an PHILOMENA inhibitor in addition to the beta-diamond. * Further recommendations will depend on the results of the above. * An echocardiogram will be performed to assess his left ventricular function and wall thickness * 3. Hyperlipidemia * Continue high intensity statin * * Thank you for allowing me to participate in the care of your patient. Please don't hesitate to call if any issues arise
--- NOTE | 2019-01-07 10:34 | CL.D_ITS ---
Patient Name: ANN-MARIE REED Study Date: 01/07/2019 Performing: Prsaanna Whittington MD Ht: 72.04 inches 183 cm : 1955 Wt: 266.76 lbs 121 kg Age: 63 Gender: male BSA: 2.41 PROCEDURE(S) PERFORMED BM82-BUI/COR/LV CLINICAL PROFILE AND INDICATIONS Indications: Suspected CAD Heart Failure: None Stress/Imaging Stress/Image Study Performed: No CONCLUSIONS Severe coronary artery disease involving the proximal left anterior descending artery, the first obtu se marginal branch, the distal right coronary artery and preserved ejection fraction with inferior hy pokinesis. RECOMMENDATIONS Referred for immediate PCI DESCRIPTION OF PROCEDURE The patient arrived to the procedure lab. The risks and benefits of the procedure as well as a full d escription of our services here and current unavailability of surgical backup were fully explained to the patient and/or their significant other prior to the catheterization. The Timeout was completed, verifying the correct patient and procedure. The patient's procedural site was prepped and draped in the usual fashion. Local anesthetic was given subcutaneously to right radial region with Lidocaine 2% . Using a modified Seldinger technique, arterial access was obtained via the right femoral artery, a 5Fr sheath was inserted. Left Coronary Artery selective angiography was performed in multiple views using a 5 Fr. 4.0 [place] catheter. Right Coronary Artery selective angiography was then performed in m ultiple views using a 5 Fr. 4.0 [place] catheter. Left Ventriculography was performed in [place] projection using a 5 Fr. Pigtail catheter. LV to AO pullback pressures were then recorded. CORONARY ANGIOGRAPHY DOMINANCE: Right Dominant LEFT HEART ASSESSMENT Left Ventricular Ejection Fraction: by LV Gram 55 % Abnormal LV wall motion. Inferior Mid Hypokinesis - Moderate Normal Left Ventricular systolic function LEFT MAIN: Angiographically normal LEFT ANTERIOR DECENDING ARTERY: PROX LAD: 85 % Stenosis MID LAD: Moderate luminal irregularities up to 50% DIAGONAL 1: Ostial - 50 % Stenosis CIRCUMFLEX ARTERY: OM 1: Proximal - long 80 % Stenosis RIGHT CORONARY ARTERY: DISTAL RCA: Mild luminal irregularities less than 30% RT PDA: Mid - 95 % Stenosis COMPLICATIONS No Complications PROCEDURE MEDICATIONS Versed 1 mg IV Fentanyl 50 mcg IV Oxygen: 2 L/min via nasal cannula Angiomax 18ml's 01/07/2019 10:24:25 Angiomax 42 ml/hr @ 01/07/2019 10:29:30 Heparin diluted in 23cc Heparinized saline. Patient given 3cc IA of this solution. 01/07/2019 09:57:1 7 Verapamil 2.5mg, Ntg 100mcgs, 2000 units of Heparin diluted in 23cc Heparinized saline. Patient give n 3cc IA of this solution. 01/07/2019 09:57:17 SUMMARY OF HEMODYNAMIC DATA Time AIR REST ECG 09:38:19 AO 107/58 (79) SA 09:59:02 LV 117/0, 12 10:09:00 LV 119/0, 15 10:09:07 LV 112/0, 13 10:10:14 LV 111/3, 14 10:10:20 LVp 112/2, 13 10:10:23 AOp 115/60 (83) 10:10:28 Signed By Prasanna Whittington MD On 01/07/2019 10:33:28 Prasanna Whittington MD
--- NOTE | 2019-01-07 10:36 | NURSING ---
Pt called and gave report to Sunni COLLET DRILLER
--- NOTE | 2019-01-07 11:14 | CL.I_ITS ---
Patient Name: ANN-MARIE REED Study Date: 01/07/2019 Performing: Chuck Lopez MD Ht: 72.04 inches 183 cm : 1955 Wt: 266.76 lbs 121 kg Age: 63 Gender: male BSA: 2.41 PROCEDURE(S) PERFORMED [id number] W OR WO PTCA, SINGLE CORONARY ARTERY CLINICAL PROFILE AND CO-MORBIDITIES Indications: Suspected CAD Heart Failure: None Stress/Imaging Stress/Image Study Performed: No CONCLUSIONS Successful PTCA/DEVIN RECOMMENDATIONS Follow up with primary amusement centre manager Highly recommend quitting all tobacco products Follow up with primary amusement centre manager Risk factor modification ASA Indefinitley Plavix for at least 12 months Routine post interventional care Refer for Outpatient Cardiac Rehab Manual sheath removal per protocol DESCRIPTION OF PROCEDURE The patient arrived to the procedure lab. The risks and benefits of the procedure as well as a full d escription of our services here and current unavailability of surgical backup were fully explained to the patient and/or their significant other prior to the catheterization. The Timeout was completed, verifying the correct patient and procedure. The patient's procedural site was prepped and draped in the usual fashion. Local anesthetic was given subcutaneously to right radial region with Lidocaine 2% Using a modified Seldinger technique,arterial access was obtained via the right femoral artery, a 5F r sheath was inserted. Left Coronary Artery selective angiography was performed in multiple views usi ng a 5 Fr. 4.0 [place] catheter. Right Coronary Artery selective angiography was then performed in mult iple views using a 5 Fr. 4.0 [place] catheter. Left Ventriculography was performed in [place] projection us ing a 5 Fr. Pigtail catheter. LV to AO pullback pressures were then recorded. AR MOD Guide catheter was inserted and engaged into the RCA. AL 1 Guide catheter was inserted and unable to engage into the RCA. AL 0.75 Guide catheter was inserted and unable to engage into the RCA . HS II Guide catheter was inserted and engaged into the RCA. BMW Rogers Guide wire was advanced t o the RCA. Emerge 2.0 x 12 Balloon catheter was inserted. Balloon catheter was advanced across lesion in the RT PDA prox PTCA balloon inflated at 12 atms for 18 secs. Synergy 2.25 x 16 Drug Eluting albertina nt was inserted. Drug Eluting stent was advanced across the lesion in the posterior descending, proxi mal. Angiogram performed post stent deployment. Angiogram performed post stent deployment. INTERVENTION INFORMATION LESION SITE: RT PDA (Proximal) Lesion Complexity: Non-High/Non-C, lesion at bifurcation: No, thrombus present: No, lesion length: 12 mm, culprit lesion: Yes Pre Stenosis: 80 % Pre intervention ASHOK flow: 3 PROCEDURE: Drug Eluting Stent with pre dilatation. Post Stenosis: 0 % Post intervention ASHOK flow: 3 Lesion Devices: Cordis 6 Fr AR MOD 100cm Guide Catheter [place] .014 BMW Rogers Straight 190cm Medtronic 6 Fr AL2.0 100cm Guide Catheter Cordis 6 Fr AL1.0 100cm Guide Catheter Cordis 6 Fr AL.75 100cm Guide Catheter Medtronic 6 Fr HSII 100cm Guide Catheter Uri Sci EMERGE MR 2.00x12 BALLOON Uri Sci Synergy MR DEVIN 2.25x16 COMPLICATIONS No Complications PROCEDURE MEDICATIONS Versed 1 mg IV Fentanyl 50 mcg IV Oxygen: 2 L/min via nasal cannula Angiomax 18ml's 01/07/2019 10:24:25 Angiomax 42 ml/hr @ 01/07/2019 10:29:30 Heparin diluted in 23cc Heparinized saline. Patient given 3cc IA of this solution. 01/07/2019 09:57:1 7 Nitro 200 mcg IC 01/07/2019 10:49:04 Verapamil 2.5mg, Ntg 100mcgs, 2000 units of Heparin diluted in 23cc Heparinized saline. Patient give n 3cc IA of this solution. 01/07/2019 09:57:17 SUMMARY OF HEMODYNAMIC DATA Time AIR REST ECG 09:38:19 AO 107/58 (79) SA 09:59:02 LV 117/0, 12 10:09:00 LV 119/0, 15 10:09:07 LV 112/0, 13 10:10:14 LV 111/3, 14 10:10:20 LVp 112/2, 13 10:10:23 AOp 115/60 (83) 10:10:28 Signed By Chuck Lopez MD On 01/07/2019 11:14:06 AM Chuck Lopez MD
[2019-01-07 11:16] LABS: ACT Activated Clotting Time 345 sec (74-137)
--- NOTE | 2019-01-07 11:46 | EKG12_ITS ---
Test Reason : AM EKG Blood Pressure : / mmHG Vent. Rate : 076 BPM Atrial Rate : 076 BPM P-R Int : 162 ms QRS Dur : 090 ms QT Int : 372 ms P-R-T Axes : 031 004 006 degrees QTc Int : 418 ms Normal sinus rhythm Inferior infarct , age undetermined Abnormal ECG When compared with ECG of 27-JAN-1997 21:33, MANUAL COMPARISON REQUIRED, DATA IS UNCONFIRMED Confirmed by AMADA REMY, ANDRES ([id number]), editorial intern ILEANA MIRELES () on 01/21/2019 1:36:16 PM Referred By: JESSICA Confirmed By:ANDRES YBARRA MD
[2019-01-07] MEDS: 0.9% Normal Saline 1,000 ML 150 ML IV (12:32)
--- NOTE | 2019-01-07 13:42 | CRPHASE1 ---
Patient Communication PHII Cardiac Rehab Discussed with Patient:: Yes Guide to Cardiac Rehab Given to Patient:: Yes Cardiac Rehab Facility Choice List Given to Patient:: Yes Choice Program [facility] CR PHII:: Communication Given to CR Practice Consultant:: Prasanna Whittington Sessions:: 36 sessions - 3 days/wk, 12 weeks Risk Factors/Lifestyle Hx Hypertension: Yes Hx Dyslipidemia: Yes Hx Obesity: Yes Height: 1.83 m Weight:: 120.202 kg BMI: 35.9 Laboratory Values: Cardiac Rehab Phase I Labs Triglycerides 136 mg/dL (-199) 01/07/19 02:13 Cholesterol 143 mg/dL (200) 01/07/19 02:13 LDL Cholesterol 67 mg/dL (0-130) 01/07/19 02:13 HDL Cholesterol 49 mg/dL (40-) 01/07/19 02:13 Phase I Education Given On:: [place], Nutrition, Antiplatelet medication, CHF, Smoking cessation, Diabetes - Type I, Diabetes - Type II Issues Affecting Care:: None Knowledge of Condition:: Yes Hospital Course Cardiac Cath Date:: 01/07/19 Medical/Surgical History Hypertension:: Yes Dyslipidemia:: Yes PTCA:: Yes Cardiac Rehabilitation Info Cardiac Rehabilitation Program Information: Cardiac Rehabilitation is important for patients like you who are recovering from a heart problem. Cardiac rehabilitation programs are recognized as integral to the continued care of the patient with coronary heart disease. The cardiac rehabilitation program is designed to optimize a patient's physical, psychological, and social functioning. Health primary care provider work in cardiac rehabilitation programs and assist you with getting the treatments you need to get stronger and healthier - like exercise, healthy eating habits, and medications. Cardiac rehabilitation has been show to help people with heart problems live longer and have better life enjoyment than people who do not go to cardiac rehabilitation. Please contact the Cardiac Rehabilitation Program at [facility] at in two weeks if you have not heard from them.
--- NOTE | 2019-01-07 13:45 | CRPHASE1_ITS ---
Addendum entered and electronically signed by Reza Hernandez CRT, REGULATORY LAW SPECIALIST, BS 01/22/19 14:36: The patient has been referred to CR Phase II following his recent PCI intervention prior to his discharge. Original Note: Patient Communication PHII Cardiac Rehab Discussed with Patient:: Yes Guide to Cardiac Rehab Given to Patient:: Yes Cardiac Rehab Facility Choice List Given to Patient:: Yes Choice Program [facility] CR PHII:: Communication Given to CR Greenskeeper Laborer:: Prasanna Whittington Sessions:: 36 sessions - 3 days/wk, 12 weeks Risk Factors/Lifestyle Hx Hypertension: Yes Hx Dyslipidemia: Yes Hx Obesity: Yes Height: 1.83 m Weight:: 120.202 kg BMI: 35.9 Laboratory Values: Cardiac Rehab Phase I Labs Triglycerides 136 mg/dL (-199) 01/07/19 02:13 Cholesterol 143 mg/dL (200) 01/07/19 02:13 LDL Cholesterol 67 mg/dL (0-130) 01/07/19 02:13 HDL Cholesterol 49 mg/dL (40-) 01/07/19 02:13 Phase I Education Given On:: [place], Nutrition, Antiplatelet medication, CHF, Smoking cessation, Diabetes - Type I, Diabetes - Type II Issues Affecting Care:: None Knowledge of Condition:: Yes Hospital Course Cardiac Cath Date:: 01/07/19 Medical/Surgical History Hypertension:: Yes Dyslipidemia:: Yes PTCA:: Yes Cardiac Rehabilitation Info Cardiac Rehabilitation Program Information: Cardiac Rehabilitation is important for patients like you who are recovering from a heart problem. Cardiac rehabilitation programs are recognized as integral to the continued care of the patient with coronary heart disease. The cardiac rehabilitation program is designed to optimize a patient's physical, psychological, and social functioning. Health child daycare worker work in cardiac rehabilitation programs and assist you with getting the treatments you need to get stronger and healthier - like exercise, healthy eating habits, and medications. Cardiac rehabilitation has been show to help people with heart problems live longer and have better life enjoyment than people who do not go to cardiac rehabilitation. Please contact the Cardiac Rehabilitation Program at [facility] at in two weeks if you have not heard from them.
--- NOTE | 2019-01-07 13:46 | CRPH1.INSTRU ---
General Education CAD and cardiac anatomy and function:: Patient communicates acknowledgment Explanation of diagnoses and procedures:: Patient communicates acknowledgment Sign/Symptoms of VA:: Patient communicates acknowledgment Antiplatelet therapy: Patient communicates acknowledgment Proper use of NTG-SL: Not instructed Emergency procedures and activation of EMS: Patient communicates acknowledgment Compliance of all prescribed medications: Patient communicates acknowledgment Smoking Nicotine/Smoking Response Code:: Patient communicates acknowledgment Dyslipidemia Dyslipidemia Response Code:: Patient communicates acknowledgment Overweight/Obesity Patient Overweight/Obesity Risk Factors Are:: Obesity - > or = 30 Recommendations Include:: Weight loss of 5-10%, Reduced calorie diet, Exercise 5-7 times/week Overweight/Obesity:: Patient communicates acknowledgment Hypertension Recommendations Include:: Maintain BP <130/85, BP <130/80 if diabetic, DASH dietary guidelines, Decrease/maintain normal body weight, Moderation of ETOH Hypertension:: Patient communicates acknowledgment Heart Disease Heart Disease Response Code:: Patient communicates acknowledgment Diabetes Diabetes:: Patient communicates acknowledgment Metabolic Syndrome Metabolic Syndrome Response Code:: Patient communicates acknowledgment Sedentary Sedentary Response Code:: Patient communicates acknowledgment Stress Stress Response Code:: Patient communicates acknowledgment
--- NOTE | 2019-01-07 13:48 | PCM.PROGNOTE ---
<Louis Gabriel - Last Filed: 01/07/19 13:48> Patient Problems: Active and Suspected Problems ACS (acute coronary syndrome) (Acute) NSTEMI (non-ST elevated myocardial infarction) (Acute) Subjective: Patient seen and examined post heart catheterization this morning. He is found to have triple-vessel disease and will likely be going tomorrow for stent placement. He is currently resting comfortably in bed no acute distress. He does report that he has midsternal mild chest discomfort. No shortness of breath, lightheadedness, dizziness, palpitations, lower extremity edema, nausea or vomiting, no abdominal pain. - Physical Exam General: Alert, Oriented x3, Cooperative HEENT: Atraumatic, PERRLA, EOMI, Normocephalic Neck: Supple, No JVD, Negative Carotid Bruits Lungs: Clear to auscultation, Normal air movement Cardiovascular: Regular rate, No murmurs Abdomen: Bowel Sounds Present, Soft, Non Tender Extremities: No edema, Capillary Refill Less than 3 Seconds Skin: No rashes, No breakdown Musculoskeletal: No Tenderness to Palpation of Joints or Extremities Neurological: Cranial nerves II-XII grossly intact Psych/Mental Status: Normal Affect, Appropriate, Alert and oriented to time, place, person, mood and affect Vital Signs Temp Pulse Resp BP Pulse Ox 98 F 70 20 H 123/66 H 94 01/07/19 12:00 01/07/19 13:30 01/07/19 13:30 01/07/19 13:30 01/07/19 13:30 Oxygen Flow Rate (L/min) 2 Oxygen Delivery Method Room Air Weight: 265 lb Body Mass Index (BMI) 36.0 Intake and Output for Last 24 Hours 01/05/19 01/06/19 01/07/19 23:59 23:59 23:59 Intake Total 362 / 362 570 / 570 Balance 362 / 362 570 / 570 Laboratory Tests Past 24 Hrs 01/06/19 01/06/19 01/06/19 20:00 20:00 20:00 WBC 5.8 RBC 4.76 Hgb 14.6 Hct 43.3 MCV 91.0 MCH 30.7 MCHC 33.7 RDW 12.8 RDW Differential 42.4 Plt Count 174 MPV 9.1 Immature Gran % (Auto) 0.000 Neut % (Auto) 63.6 Lymph % (Auto) 24.7 [place] % (Auto) 9.7 Eos % (Auto) 1.7 Baso % (Auto) 0.3 Absolute Neuts (auto) 3.7 Absolute Lymphs (auto) 1.43 Total Counted Not Reportable PT INR APTT 30.3 Activated Clotting Time Sodium 141 Potassium 3.8 Chloride 105 Carbon Dioxide 28.0 Anion Gap 8 BUN 19 H Creatinine 1.08 Estim Creat Clear Calc 76.84 Est GFR (MDRD) Af Amer 89 Est GFR (MDRD) Non-Af 73 BUN/Creatinine Ratio 17.6 Glucose 105 Calcium 9.2 Troponin I 0.531 H Triglycerides Cholesterol LDL Cholesterol VLDL Cholesterol HDL Cholesterol Urine Color Urine Clarity Urine pH Ur Specific [place] Urine Protein Urine Glucose (UA) Urine Ketones Urine Occult Blood Urine Nitrite Urine Bilirubin Urine Urobilinogen Ur Leukocyte Esterase 01/06/19 01/07/19 01/07/19 22:40 02:13 02:13 WBC RBC Hgb Hct MCV MCH MCHC RDW RDW Differential Plt Count MPV Immature Gran % (Auto) Neut % (Auto) Lymph % (Auto) [place] % (Auto) Eos % (Auto) Baso % (Auto) Absolute Neuts (auto) Absolute Lymphs (auto) Total Counted PT 13.5 INR 1.1 APTT 39.9 H Activated Clotting Time Sodium 141 Potassium 3.6 Chloride 108 H Carbon Dioxide 28.0 Anion Gap 5 BUN 15 Creatinine 0.93 Estim Creat Clear Calc 89.24 Est GFR (MDRD) Af Amer 105 Est GFR (MDRD) Non-Af 87 BUN/Creatinine Ratio 16.1 Glucose 105 Calcium 8.7 Troponin I 1.190 H* Triglycerides 136 Cholesterol 143 LDL Cholesterol 67 VLDL Cholesterol 27 HDL Cholesterol 49 Urine Color Urine Clarity Urine pH Ur Specific [place] Urine Protein Urine Glucose (UA) Urine Ketones Urine Occult Blood Urine Nitrite Urine Bilirubin Urine Urobilinogen Ur Leukocyte Esterase 01/07/19 01/07/19 01/07/19 02:13 02:13 02:50 WBC 5.7 RBC 4.31 L Hgb 13.4 Hct 39.8 L MCV 92.3 MCH 31.1 MCHC 33.7 RDW 12.8 RDW Differential 42.1 Plt Count 163 MPV 9.0 Immature Gran % (Auto) 0.200 Neut % (Auto) 51.7 Lymph % (Auto) 34.6 [place] % (Auto) 10.7 H Eos % (Auto) 2.3 Baso % (Auto) 0.5 Absolute Neuts (auto) 3.0 Absolute Lymphs (auto) 1.98 Total Counted Not Reportable PT INR APTT Activated Clotting Time Sodium Potassium Chloride Carbon Dioxide Anion Gap BUN Creatinine Estim Creat Clear Calc Est GFR (MDRD) Af Amer Est GFR (MDRD) Non-Af BUN/Creatinine Ratio Glucose Calcium Troponin I 1.570 H* Triglycerides Cholesterol LDL Cholesterol VLDL Cholesterol HDL Cholesterol Urine Color Yellow Urine Clarity Clear Urine pH 6.5 Ur Specific [place] 1.015 Urine Protein Negative Urine Glucose (UA) Normal Urine Ketones Negative Urine Occult Blood Negative Urine Nitrite Negative Urine Bilirubin Negative Urine Urobilinogen Normal Ur Leukocyte Esterase Negative 01/07/19 10:57 WBC RBC Hgb Hct MCV MCH MCHC RDW RDW Differential Plt Count MPV Immature Gran % (Auto) Neut % (Auto) Lymph % (Auto) [place] % (Auto) Eos % (Auto) Baso % (Auto) Absolute Neuts (auto) Absolute Lymphs (auto) Total Counted PT INR APTT Activated Clotting Time 345 H Sodium Potassium Chloride Carbon Dioxide Anion Gap BUN Creatinine Estim Creat Clear Calc Est GFR (MDRD) Af Amer Est GFR (MDRD) Non-Af BUN/Creatinine Ratio Glucose Calcium Troponin I Triglycerides Cholesterol LDL Cholesterol VLDL Cholesterol HDL Cholesterol Urine Color Urine Clarity Urine pH Ur Specific [place] Urine Protein Urine Glucose (UA) Urine Ketones Urine Occult Blood Urine Nitrite Urine Bilirubin Urine Urobilinogen Ur Leukocyte Esterase Medical Necessity - Tobacco Use Smoking Status: Former smoker Assessment/Plan All Active Problems ACS (acute coronary syndrome) (Acute) NSTEMI (non-ST elevated myocardial infarction) (Acute) 1. Det-MVRBE-hfhwal-vessel disease per todays cath. Cardiology following. Intervention tomorrow. On aspirin, statin, Plavix, PHILOMENA inhibitor, beta-diamond, bivalirudin. VSS, ongoing mild chest discomfort. 2. History of hypertension hyperlipidemia-management as above. DVT prophylaxis: As per cardiology Discharge planning-pending outcome of heart catheterization tomorrow. This patient was seen by Louis Gabriel PA-C under the supervision of Doctor Pawel. <Shaw Armas - Last Filed: 01/07/19 14:16> Subjective: Feeling well post-cath. Still with some chest pain, but improved. - Physical Exam General: Alert, Cooperative HEENT: Atraumatic, Normocephalic Neck: No Nodes, Thyroid Normal Size and Texture Lungs: Clear to auscultation, Normal air movement, No rhonchi, No wheeze Cardiovascular: Regular rate, Regular Rhythm, Normal S1, Normal S2, No murmurs Abdomen: Bowel Sounds Present, Soft, Non Tender, Non-Distended Extremities: No edema, No Calf Tenderness Skin: No rashes, No breakdown Musculoskeletal: No Tenderness to Palpation of Joints or Extremities, No Muscle Wasting Psych/Mental Status: Normal Affect, Appropriate Vital Signs Temp Pulse Resp BP Pulse Ox 36.6 C 70 20 H 123/66 H 94 01/07/19 12:00 01/07/19 13:30 01/07/19 13:30 01/07/19 13:30 01/07/19 13:30 Oxygen Flow Rate (L/min) 2 Oxygen Delivery Method Room Air Weight: 120.202 kg Body Mass Index (BMI) 36.0 Intake and Output for Last 24 Hours 01/05/19 01/06/19 01/07/19 23:59 23:59 23:59 Intake Total 362 / 362 570 / 570 Balance 362 / 362 570 / 570 Laboratory Tests Past 24 Hrs 01/06/19 01/06/19 01/06/19 20:00 20:00 20:00 WBC 5.8 RBC 4.76 Hgb 14.6 Hct 43.3 MCV 91.0 MCH 30.7 MCHC 33.7 RDW 12.8 RDW Differential 42.4 Plt Count 174 MPV 9.1 Immature Gran % (Auto) 0.000 Neut % (Auto) 63.6 Lymph % (Auto) 24.7 [place] % (Auto) 9.7 Eos % (Auto) 1.7 Baso % (Auto) 0.3 Absolute Neuts (auto) 3.7 Absolute Lymphs (auto) 1.43 Total Counted Not Reportable PT INR APTT 30.3 Activated Clotting Time Sodium 141 Potassium 3.8 Chloride 105 Carbon Dioxide 28.0 Anion Gap 8 BUN 19 H Creatinine 1.08 Estim Creat Clear Calc 76.84 Est GFR (MDRD) Af Amer 89 Est GFR (MDRD) Non-Af 73 BUN/Creatinine Ratio 17.6 Glucose 105 Calcium 9.2 Troponin I 0.531 H Triglycerides Cholesterol LDL Cholesterol VLDL Cholesterol HDL Cholesterol Urine Color Urine Clarity Urine pH Ur Specific [place] Urine Protein Urine Glucose (UA) Urine Ketones Urine Occult Blood Urine Nitrite Urine Bilirubin Urine Urobilinogen Ur Leukocyte Esterase 01/06/19 01/07/19 01/07/19 22:40 02:13 02:13 WBC RBC Hgb Hct MCV MCH MCHC RDW RDW Differential Plt Count MPV Immature Gran % (Auto) Neut % (Auto) Lymph % (Auto) [place] % (Auto) Eos % (Auto) Baso % (Auto) Absolute Neuts (auto) Absolute Lymphs (auto) Total Counted PT 13.5 INR 1.1 APTT 39.9 H Activated Clotting Time Sodium 141 Potassium 3.6 Chloride 108 H Carbon Dioxide 28.0 Anion Gap 5 BUN 15 Creatinine 0.93 Estim Creat Clear Calc 89.24 Est GFR (MDRD) Af Amer 105 Est GFR (MDRD) Non-Af 87 BUN/Creatinine Ratio 16.1 Glucose 105 Calcium 8.7 Troponin I 1.190 H* Triglycerides 136 Cholesterol 143 LDL Cholesterol 67 VLDL Cholesterol 27 HDL Cholesterol 49 Urine Color Urine Clarity Urine pH Ur Specific [place] Urine Protein Urine Glucose (UA) Urine Ketones Urine Occult Blood Urine Nitrite Urine Bilirubin Urine Urobilinogen Ur Leukocyte Esterase 01/07/19 01/07/19 01/07/19 02:13 02:13 02:50 WBC 5.7 RBC 4.31 L Hgb 13.4 Hct 39.8 L MCV 92.3 MCH 31.1 MCHC 33.7 RDW 12.8 RDW Differential 42.1 Plt Count 163 MPV 9.0 Immature Gran % (Auto) 0.200 Neut % (Auto) 51.7 Lymph % (Auto) 34.6 [place] % (Auto) 10.7 H Eos % (Auto) 2.3 Baso % (Auto) 0.5 Absolute Neuts (auto) 3.0 Absolute Lymphs (auto) 1.98 Total Counted Not Reportable PT INR APTT Activated Clotting Time Sodium Potassium Chloride Carbon Dioxide Anion Gap BUN Creatinine Estim Creat Clear Calc Est GFR (MDRD) Af Amer Est GFR (MDRD) Non-Af BUN/Creatinine Ratio Glucose Calcium Troponin I 1.570 H* Triglycerides Cholesterol LDL Cholesterol VLDL Cholesterol HDL Cholesterol Urine Color Yellow Urine Clarity Clear Urine pH 6.5 Ur Specific [place] 1.015 Urine Protein Negative Urine Glucose (UA) Normal Urine Ketones Negative Urine Occult Blood Negative Urine Nitrite Negative Urine Bilirubin Negative Urine Urobilinogen Normal Ur Leukocyte Esterase Negative 01/07/19 10:57 WBC RBC Hgb Hct MCV MCH MCHC RDW RDW Differential Plt Count MPV Immature Gran % (Auto) Neut % (Auto) Lymph % (Auto) [place] % (Auto) Eos % (Auto) Baso % (Auto) Absolute Neuts (auto) Absolute Lymphs (auto) Total Counted PT INR APTT Activated Clotting Time 345 H Sodium Potassium Chloride Carbon Dioxide Anion Gap BUN Creatinine Estim Creat Clear Calc Est GFR (MDRD) Af Amer Est GFR (MDRD) Non-Af BUN/Creatinine Ratio Glucose Calcium Troponin I Triglycerides Cholesterol LDL Cholesterol VLDL Cholesterol HDL Cholesterol Urine Color Urine Clarity Urine pH Ur Specific [place] Urine Protein Urine Glucose (UA) Urine Ketones Urine Occult Blood Urine Nitrite Urine Bilirubin Urine Urobilinogen Ur Leukocyte Esterase Assessment/Plan Patient seen and examined independently. Data reviewed. I agree with the above note by the physician chiropractic assistant. 1. NSTEMI: Triple vessel dz on diagnostic cath s/p PCI w DEVIN to PDA (culprit lesion) on 01/07. ASA indefinitely. Plavix for 12 months. Continue High-intensity statin, beta-diamond and ACEi. Follow up for other CAD (OM 80% stenosis, Prox LAD 85%) 2. HTN: stable 3. DVT proph: SCDs. Code Visit Inpatient E&M: 32553 Subs Hosp L3
--- NOTE | 2019-01-07 13:51 | PN_ITS ---
<Louis Gabriel - Last Filed: 01/07/19 13:48> Patient Problems: Active and Suspected Problems ACS (acute coronary syndrome) (Acute) NSTEMI (non-ST elevated myocardial infarction) (Acute) Subjective: Patient seen and examined post heart catheterization this morning. He is found to have triple-vessel disease and will likely be going tomorrow for stent placement. He is currently resting comfortably in bed no acute distress. He does report that he has midsternal mild chest discomfort. No shortness of breath, lightheadedness, dizziness, palpitations, lower extremity edema, nausea or vomiting, no abdominal pain. - Physical Exam General: Alert, Oriented x3, Cooperative HEENT: Atraumatic, PERRLA, EOMI, Normocephalic Neck: Supple, No JVD, Negative Carotid Bruits Lungs: Clear to auscultation, Normal air movement Cardiovascular: Regular rate, No murmurs Abdomen: Bowel Sounds Present, Soft, Non Tender Extremities: No edema, Capillary Refill Less than 3 Seconds Skin: No rashes, No breakdown Musculoskeletal: No Tenderness to Palpation of Joints or Extremities Neurological: Cranial nerves II-XII grossly intact Psych/Mental Status: Normal Affect, Appropriate, Alert and oriented to time, place, person, mood and affect Vital Signs Temp Pulse Resp BP Pulse Ox 98 F 70 20 H 123/66 H 94 01/07/19 12:00 01/07/19 13:30 01/07/19 13:30 01/07/19 13:30 01/07/19 13:30 Oxygen Flow Rate (L/min) 2 Oxygen Delivery Method Room Air Weight: 265 lb Body Mass Index (BMI) 36.0 Intake and Output for Last 24 Hours 01/05/19 01/06/19 01/07/19 23:59 23:59 23:59 Intake Total 362 / 362 570 / 570 Balance 362 / 362 570 / 570 Laboratory Tests Past 24 Hrs 01/06/19 01/06/19 01/06/19 20:00 20:00 20:00 WBC 5.8 RBC 4.76 Hgb 14.6 Hct 43.3 MCV 91.0 MCH 30.7 MCHC 33.7 RDW 12.8 RDW Differential 42.4 Plt Count 174 MPV 9.1 Immature Gran % (Auto) 0.000 Neut % (Auto) 63.6 Lymph % (Auto) 24.7 [place] % (Auto) 9.7 Eos % (Auto) 1.7 Baso % (Auto) 0.3 Absolute Neuts (auto) 3.7 Absolute Lymphs (auto) 1.43 Total Counted Not Reportable PT INR APTT 30.3 Activated Clotting Time Sodium 141 Potassium 3.8 Chloride 105 Carbon Dioxide 28.0 Anion Gap 8 BUN 19 H Creatinine 1.08 Estim Creat Clear Calc 76.84 Est GFR (MDRD) Af Amer 89 Est GFR (MDRD) Non-Af 73 BUN/Creatinine Ratio 17.6 Glucose 105 Calcium 9.2 Troponin I 0.531 H Triglycerides Cholesterol LDL Cholesterol VLDL Cholesterol HDL Cholesterol Urine Color Urine Clarity Urine pH Ur Specific Adger Urine Protein Urine Glucose (UA) Urine Ketones Urine Occult Blood Urine Nitrite Urine Bilirubin Urine Urobilinogen Ur Leukocyte Esterase 01/06/19 01/07/19 01/07/19 22:40 02:13 02:13 WBC RBC Hgb Hct MCV MCH MCHC RDW RDW Differential Plt Count MPV Immature Gran % (Auto) Neut % (Auto) Lymph % (Auto) [place] % (Auto) Eos % (Auto) Baso % (Auto) Absolute Neuts (auto) Absolute Lymphs (auto) Total Counted PT 13.5 INR 1.1 APTT 39.9 H Activated Clotting Time Sodium 141 Potassium 3.6 Chloride 108 H Carbon Dioxide 28.0 Anion Gap 5 BUN 15 Creatinine 0.93 Estim Creat Clear Calc 89.24 Est GFR (MDRD) Af Amer 105 Est GFR (MDRD) Non-Af 87 BUN/Creatinine Ratio 16.1 Glucose 105 Calcium 8.7 Troponin I 1.190 H* Triglycerides 136 Cholesterol 143 LDL Cholesterol 67 VLDL Cholesterol 27 HDL Cholesterol 49 Urine Color Urine Clarity Urine pH Ur Specific Adger Urine Protein Urine Glucose (UA) Urine Ketones Urine Occult Blood Urine Nitrite Urine Bilirubin Urine Urobilinogen Ur Leukocyte Esterase 01/07/19 01/07/19 01/07/19 02:13 02:13 02:50 WBC 5.7 RBC 4.31 L Hgb 13.4 Hct 39.8 L MCV 92.3 MCH 31.1 MCHC 33.7 RDW 12.8 RDW Differential 42.1 Plt Count 163 MPV 9.0 Immature Gran % (Auto) 0.200 Neut % (Auto) 51.7 Lymph % (Auto) 34.6 [place] % (Auto) 10.7 H Eos % (Auto) 2.3 Baso % (Auto) 0.5 Absolute Neuts (auto) 3.0 Absolute Lymphs (auto) 1.98 Total Counted Not Reportable PT INR APTT Activated Clotting Time Sodium Potassium Chloride Carbon Dioxide Anion Gap BUN Creatinine Estim Creat Clear Calc Est GFR (MDRD) Af Amer Est GFR (MDRD) Non-Af BUN/Creatinine Ratio Glucose Calcium Troponin I 1.570 H* Triglycerides Cholesterol LDL Cholesterol VLDL Cholesterol HDL Cholesterol Urine Color Yellow Urine Clarity Clear Urine pH 6.5 Ur Specific Adger 1.015 Urine Protein Negative Urine Glucose (UA) Normal Urine Ketones Negative Urine Occult Blood Negative Urine Nitrite Negative Urine Bilirubin Negative Urine Urobilinogen Normal Ur Leukocyte Esterase Negative 01/07/19 10:57 WBC RBC Hgb Hct MCV MCH MCHC RDW RDW Differential Plt Count MPV Immature Gran % (Auto) Neut % (Auto) Lymph % (Auto) [place] % (Auto) Eos % (Auto) Baso % (Auto) Absolute Neuts (auto) Absolute Lymphs (auto) Total Counted PT INR APTT Activated Clotting Time 345 H Sodium Potassium Chloride Carbon Dioxide Anion Gap BUN Creatinine Estim Creat Clear Calc Est GFR (MDRD) Af Amer Est GFR (MDRD) Non-Af BUN/Creatinine Ratio Glucose Calcium Troponin I Triglycerides Cholesterol LDL Cholesterol VLDL Cholesterol HDL Cholesterol Urine Color Urine Clarity Urine pH Ur Specific Adger Urine Protein Urine Glucose (UA) Urine Ketones Urine Occult Blood Urine Nitrite Urine Bilirubin Urine Urobilinogen Ur Leukocyte Esterase Medical Necessity - Tobacco Use Smoking Status: Former smoker Assessment/Plan All Active Problems ACS (acute coronary syndrome) (Acute) NSTEMI (non-ST elevated myocardial infarction) (Acute) 1. Ban-[id number]-[id number]-vessel disease per todays cath. Cardiology following. Intervention tomorrow. On aspirin, statin, Plavix, PHILOMENA inhibitor, beta-diamond, bivalirudin. VSS, ongoing mild chest discomfort. 2. History of hypertension hyperlipidemia-management as above. DVT prophylaxis: As per cardiology Discharge planning-pending outcome of heart catheterization tomorrow. This patient was seen by Louis Gabriel PA-C under the supervision of Doctor Pawel. <Shaw Armas - Last Filed: 01/07/19 14:16> Subjective: Feeling well post-cath. Still with some chest pain, but improved. - Physical Exam General: Alert, Cooperative HEENT: Atraumatic, Normocephalic Neck: No Nodes, Thyroid Normal Size and Texture Lungs: Clear to auscultation, Normal air movement, No rhonchi, No wheeze Cardiovascular: Regular rate, Regular Rhythm, Normal S1, Normal S2, No murmurs Abdomen: Bowel Sounds Present, Soft, Non Tender, Non-Distended Extremities: No edema, No Calf Tenderness Skin: No rashes, No breakdown Musculoskeletal: No Tenderness to Palpation of Joints or Extremities, No Muscle Wasting Psych/Mental Status: Normal Affect, Appropriate Vital Signs Temp Pulse Resp BP Pulse Ox 36.6 C 70 20 H 123/66 H 94 01/07/19 12:00 01/07/19 13:30 01/07/19 13:30 01/07/19 13:30 01/07/19 13:30 Oxygen Flow Rate (L/min) 2 Oxygen Delivery Method Room Air Weight: 120.202 kg Body Mass Index (BMI) 36.0 Intake and Output for Last 24 Hours 01/05/19 01/06/19 01/07/19 23:59 23:59 23:59 Intake Total 362 / 362 570 / 570 Balance 362 / 362 570 / 570 Laboratory Tests Past 24 Hrs 01/06/19 01/06/19 01/06/19 20:00 20:00 20:00 WBC 5.8 RBC 4.76 Hgb 14.6 Hct 43.3 MCV 91.0 MCH 30.7 MCHC 33.7 RDW 12.8 RDW Differential 42.4 Plt Count 174 MPV 9.1 Immature Gran % (Auto) 0.000 Neut % (Auto) 63.6 Lymph % (Auto) 24.7 [place] % (Auto) 9.7 Eos % (Auto) 1.7 Baso % (Auto) 0.3 Absolute Neuts (auto) 3.7 Absolute Lymphs (auto) 1.43 Total Counted Not Reportable PT INR APTT 30.3 Activated Clotting Time Sodium 141 Potassium 3.8 Chloride 105 Carbon Dioxide 28.0 Anion Gap 8 BUN 19 H Creatinine 1.08 Estim Creat Clear Calc 76.84 Est GFR (MDRD) Af Amer 89 Est GFR (MDRD) Non-Af 73 BUN/Creatinine Ratio 17.6 Glucose 105 Calcium 9.2 Troponin I 0.531 H Triglycerides Cholesterol LDL Cholesterol VLDL Cholesterol HDL Cholesterol Urine Color Urine Clarity Urine pH Ur Specific Adger Urine Protein Urine Glucose (UA) Urine Ketones Urine Occult Blood Urine Nitrite Urine Bilirubin Urine Urobilinogen Ur Leukocyte Esterase 01/06/19 01/07/19 01/07/19 22:40 02:13 02:13 WBC RBC Hgb Hct MCV MCH MCHC RDW RDW Differential Plt Count MPV Immature Gran % (Auto) Neut % (Auto) Lymph % (Auto) [place] % (Auto) Eos % (Auto) Baso % (Auto) Absolute Neuts (auto) Absolute Lymphs (auto) Total Counted PT 13.5 INR 1.1 APTT 39.9 H Activated Clotting Time Sodium 141 Potassium 3.6 Chloride 108 H Carbon Dioxide 28.0 Anion Gap 5 BUN 15 Creatinine 0.93 Estim Creat Clear Calc 89.24 Est GFR (MDRD) Af Amer 105 Est GFR (MDRD) Non-Af 87 BUN/Creatinine Ratio 16.1 Glucose 105 Calcium 8.7 Troponin I 1.190 H* Triglycerides 136 Cholesterol 143 LDL Cholesterol 67 VLDL Cholesterol 27 HDL Cholesterol 49 Urine Color Urine Clarity Urine pH Ur Specific Adger Urine Protein Urine Glucose (UA) Urine Ketones Urine Occult Blood Urine Nitrite Urine Bilirubin Urine Urobilinogen Ur Leukocyte Esterase 01/07/19 01/07/19 01/07/19 02:13 02:13 02:50 WBC 5.7 RBC 4.31 L Hgb 13.4 Hct 39.8 L MCV 92.3 MCH 31.1 MCHC 33.7 RDW 12.8 RDW Differential 42.1 Plt Count 163 MPV 9.0 Immature Gran % (Auto) 0.200 Neut % (Auto) 51.7 Lymph % (Auto) 34.6 [place] % (Auto) 10.7 H Eos % (Auto) 2.3 Baso % (Auto) 0.5 Absolute Neuts (auto) 3.0 Absolute Lymphs (auto) 1.98 Total Counted Not Reportable PT INR APTT Activated Clotting Time Sodium Potassium Chloride Carbon Dioxide Anion Gap BUN Creatinine Estim Creat Clear Calc Est GFR (MDRD) Af Amer Est GFR (MDRD) Non-Af BUN/Creatinine Ratio Glucose Calcium Troponin I 1.570 H* Triglycerides Cholesterol LDL Cholesterol VLDL Cholesterol HDL Cholesterol Urine Color Yellow Urine Clarity Clear Urine pH 6.5 Ur Specific Adger 1.015 Urine Protein Negative Urine Glucose (UA) Normal Urine Ketones Negative Urine Occult Blood Negative Urine Nitrite Negative Urine Bilirubin Negative Urine Urobilinogen Normal Ur Leukocyte Esterase Negative 01/07/19 10:57 WBC RBC Hgb Hct MCV MCH MCHC RDW RDW Differential Plt Count MPV Immature Gran % (Auto) Neut % (Auto) Lymph % (Auto) [place] % (Auto) Eos % (Auto) Baso % (Auto) Absolute Neuts (auto) Absolute Lymphs (auto) Total Counted PT INR APTT Activated Clotting Time 345 H Sodium Potassium Chloride Carbon Dioxide Anion Gap BUN Creatinine Estim Creat Clear Calc Est GFR (MDRD) Af Amer Est GFR (MDRD) Non-Af BUN/Creatinine Ratio Glucose Calcium Troponin I Triglycerides Cholesterol LDL Cholesterol VLDL Cholesterol HDL Cholesterol Urine Color Urine Clarity Urine pH Ur Specific Adger Urine Protein Urine Glucose (UA) Urine Ketones Urine Occult Blood Urine Nitrite Urine Bilirubin Urine Urobilinogen Ur Leukocyte Esterase Assessment/Plan Patient seen and examined independently. Data reviewed. I agree with the above note by the physician accounting assistant. 1. NSTEMI: * Triple vessel dz on diagnostic cath * s/p PCI w DEVIN to PDA (culprit lesion) on 01/07. * ASA indefinitely. Plavix for 12 months. * Continue High-intensity statin, beta-diamond and ACEi. * Follow up for other CAD (OM 80% stenosis, Prox LAD 85%) 2. HTN: stable 3. DVT proph: SCDs. Code Visit Inpatient E&M: 52328 Subs Hosp L3
--- NOTE | 2019-01-07 14:30 | CASEMGMT ---
RN CM CLAY TEMPERER CM to room to meet with patient for initial transition planning/care coordination assessment. RN DENA introduced self and role at [facility]. Pt voices understanding and consents to assessment at this time. Pt resting in bed in no distress at this time. at bedside. Pt is A/O at this time and answers all questions appropriately. Care providers, pharmacy, and demographics verified/updated at this time. PCP: Dominik Specialists: denies Preferred Pharmacy: [facility] Insurance: [place] Prescription Benefit: Yes Living Will/HPOA: States does not have LW or HCPOA . Interested in more information and would like to talk to to complete paperwork. Given AD info packet and Tree Trimming Supervisor Rac Card. Referral to [facility], [facility]. LNOK: , Radha Living Arrangements: Lives with , son, DIL, and 5 grandchildren in 2-story home. Denies difficulty with stairs. Independent. Works full-time. Transportation: Pt states drives self and states no transportation concerns at this time. able to drive pt home on d/c. DME: Denies using any DME and denies needs. HHC/SNF: No history of either. Denies needs and no needs identified. Pt wishes to return home and states has no concerns with going home at time of discharge. Pt states does not smoke and drinks a couple beers on the weekend. CM to follow for any further discharge planning/needs. Pt voices no further concerns/needs at this time. Advised pt to ask for CM if any further questions/concerns/needs arise. Voices understanding. PLAN: Home PCI this admission. On ASA and Plavix. Kamari MCCRATHY RN, CM
--- NOTE | 2019-01-07 15:34 | CASEMGMT ---
Received referral from JOHN FERNANDES that patient would like to complete advance directives. SW met with patient and his . Introduced self and role at [facility]. SW completed documents with patient. Copies were made. Originals and copies given to patient. A copy of each document was placed in patient's chart. Norma MAURICIO
--- NOTE | 2019-01-07 17:51 | NURSING ---
reviewed estuardo schwartz rn charting and agree with assessment findings
[2019-01-07] MEDS: Atorvastatin Calcium 80 MG Tablet PO (20:58)
[2019-01-08] VITALS (13 sets, daily range): BP systolic 118–159; BP diastolic 65–87; PULSE 61–88; RESP 11–25; TEMP 36.7–36.8; O2SAT 92–95
[2019-01-08 05:11] LABS: Hematocrit 40.8 % (40-54); Hemoglobin 13.3 g/dl (13.0-16.5); Mean Corp Hgb Conc 32.6 g/gl (32-36); Mean Corpuscular Hgb 30.5 pg (27.0-32.0); Mean Corpuscular Volume 93.6 fL (80-94); Mean Platelet Vol. 9.3 fl (6.2-12.0); Platelet Count 156 K/mm3 (150-450); RBC Distribution Width CV 12.7 % (11.6-14.6); RBC Distribution Width SD 42.6 fl (35.1-43.9); Red Blood Count 4.36 M/mm3 (4.6-6.2); Scan Indicated on CBC? Y/N NO; White Blood Count 6.1 K/mm3 (4.4-11.0)
[2019-01-08] MEDS: 0.9% NaCl Peripheral Flush Adult/Peds IV (05:17)
[2019-01-08 05:42] LABS: Anion Gap 4 (5-15); BUN 12 mg/dL (7-18); BUN/Creat Ratio 11.9 RATIO (10-20); Calcium,Total 8.5 mg/dL (8.5-10.1); Chloride 109 mmol/L (98-107); Cholesterol 134 mg/dL (200); Creatinine, Serum 1.01 mg/dL (0.70-1.30); EST Glomerular Filtration Rate 79 mL/min (>60); Est Glom Filt Rate - Afr Amer 96 mL/min (>60); Estimated Creatinine Clearance 82.17 ml/min; Glucose 97 mg/dL (74-106); High Density Lipoprotein 46 mg/dL; Potassium 4.2 mmol/L (3.5-5.1); Sodium Level 143 mmol/L (136-145); Triglycerides 109 mg/dL; Very Low Density Lipoprotein 22 mg/dL (5-40)
--- NOTE | 2019-01-08 07:34 | PN.CARD_ITS ---
Subjectve: Patient seen and evaluated appears to be doing well overnight Objective: Vital Signs Temp Pulse Resp BP Pulse Ox 98.2 F 61 20 H 133/85 H 95 01/08/19 04:00 01/08/19 07:00 01/08/19 07:00 01/08/19 07:00 01/08/19 07:00 Oxygen Flow Rate (L/min) 2 Oxygen Delivery Method Room Air Weight: 262 lb 2.074 oz Body Mass Index (BMI) 36.0 Intake and Output for Last 24 Hours 01/06/19 01/07/19 01/08/19 23:59 23:59 23:59 Intake Total 362 / 362 2450 / 2450 200 / 200 Output Total 600 / 600 Balance 362 / 362 2450 / 2450 -400 / -400 General: Awake, Alert, Oriented x 3 HEENT: PERRL, EOMI, Sclera Non Icteric Neck: Supple, Good ROM, No Lymph Node Enlargement Lungs: Clear to auscultation Cardiovascular: Regular Rhythm, Normal S1, Normal S2, No Murmurs, No Rubs, No Gallops Vascular: No Carotid Bruits, Normal Femoral Pulses, Normal Radial Pulses, Normal Dorsalis Pedal Pulse, Normal Posterior Tibial Pulses Abdomen: Bowel Sounds Present, Soft, Non Tender, No HSM, No Organomegaly Extremities: No Cyanosis, No Clubbing, No edema Musculoskeletal: No Erythema Skin: No Rashes Lymphatic: No Lymph Node Enlargement Neurological: No Focal Motor or Sensory Deficit Psych/Mental Status: Appropriate 01/08/19 05:00: WBC 6.1, RBC 4.36 L, Hgb 13.3, Hct 40.8, MCV 93.6, MCH 30.5, MCHC 32.6, RDW 12.7, RDW Differential 42.6, Plt Count 156, MPV 9.3 01/08/19 05:00: Sodium 143, Potassium 4.2, Chloride 109 H, Carbon Dioxide 30.0, Anion Gap 4 L, BUN 12, Creatinine 1.01, Est GFR (MDRD) Af Amer 96, Est GFR (MDRD) Non-Af 79, BUN/Creatinine Ratio 11.9, Glucose 97, Calcium 8.5, Triglycerides 109, Cholesterol 134, LDL Cholesterol 66, VLDL Cholesterol 22, HDL Cholesterol 46 Rhythm: EKG: ECHO: Stress Test: Cardiac Cath: PCI: CT Surgery: Holter monitor: EPS: PPM: CXR: Chest CT Scan: Medical Necessity - Tobacco Use Smoking Status: Former smoker Assessment/Plan 1. Non-ST elevation myocardial infarction * Patient presents with chest discomfort and abnormal cardiac enzymes suggestive of an acute coronary syndrome. He does have some risk factors with hypertension, obesity, hyperlipidemia. I have discussed this with him and his that with a troponin level it may be appropriate to proceed directly to a cardiac catheterization. * Cardiac catheterization demonstrated the following: Left main coronary artery which is normal Left anterior descending artery with proximal 80% stenosis and mid 50-60% stenosis First diagonal vessel with proximal 50% stenosis Left circumflex artery with first obtuse marginal branch with a long 80-90% stenosis Dominant large right coronary artery with posterior descending artery with 90% stenosis Preserved ejection fraction with inferior hypokinesis Based on the above angiographic findings, the patient underwent angioplasty of the distal right coronary artery. After discussion with the patient he would prefer to have the other lesions done with interval angioplasty. The patient will be brought back in a week on Monday and have this performed. I discussed with the patient as well as the Pharmacy Student and scheduling. 2. Hypertension * He is currently not treated for the above but more than likely he is hypertensive. * Will likely start him on an PHILOMENA inhibitor in addition to the beta-diamond. * Further recommendations will depend on the results of the above. * * 3. Hyperlipidemia * Continue high intensity statin * * He can be discharged for outpatient follow-up and follow-up angioplasty * * Thank you for allowing me to participate in the care of your patient. Please don't hesitate to call if any issues arise
--- NOTE | 2019-01-08 10:00 | EKG12_ITS ---
Test Reason : CP ADMIT Blood Pressure : / mmHG Vent. Rate : 072 BPM Atrial Rate : 072 BPM P-R Int : 158 ms QRS Dur : 092 ms QT Int : 386 ms P-R-T Axes : 044 022 006 degrees QTc Int : 422 ms Normal sinus rhythm Inferior infarct , age undetermined Abnormal ECG When compared with ECG of 06-JAN-2019 19:42, MANUAL COMPARISON REQUIRED, DATA IS UNCONFIRMED Confirmed by AMADA REMY, ANDRES ([id number]), news videotape editor ILEANA MIRELES ([id number]) on 01/08/2019 1:10:13 PM Referred By: DR BURR Confirmed By:ANDRES YBARRA MD
[2019-01-08] MEDS: Metoprolol(XL)Succ 50 MG Tablet PO (10:32)
[2019-01-08] MEDS: Aspirin E.C. 81 MG Tablet PO (10:34)
[2019-01-08] MEDS: Clopidogrel Bisulfate 75 MG Tablet PO (10:34)
[2019-01-08] MEDS: Lisinopril 10 MG Tablet PO (10:35)
--- NOTE | 2019-01-08 11:56 | DCINST_ITS ---
- Discharge Diagnoses Current Active Problems: Current Active and Chronic Problems (Last Updated 01/08/19 @ 09:51 by Mayra Montero) ACS (acute coronary syndrome) (Acute) NSTEMI (non-ST elevated myocardial infarction) (Acute 01/06/19) You will use the following diet at home:: Cardiac Your food should be the consistency of: Regular Your liquids should be the consistency of: Regular/Thin Discharge Activity: - - No lifting over 5 lbs. Ok to walk on flat surgaces. Allergies/Adverse Reactions: Allergies No Known Allergies Allergy (Verified 01/06/19 19:39) Medications to take at Discharge Aspirin, Baby 81 mg PO DAILY 01/06/19 Atorvastatin Calcium [Lipitor] 80 mg PO QHS #30 tablet 01/08/19 Clopidogrel Bisulfate [Plavix] 75 mg PO DAILY #30 tablet 01/08/19 Lisinopril [Zestril] 10 mg PO DAILY #30 tablet 01/08/19 Metoprolol(XL)Succ [Toprol Xl (Beta Loulou)] 50 mg PO DAILY #30 tablet 01/08/19 The following prescriptions were given: Atorvastatin Calcium [Lipitor] 80 mg PO QHS #30 tablet Clopidogrel Bisulfate [Plavix] 75 mg PO DAILY #30 tablet Lisinopril [Zestril] 10 mg PO DAILY #30 tablet Metoprolol(XL)Succ [Toprol Xl (Beta Loulou)] 50 mg PO DAILY #30 tablet Primary Care Physician: Moshe Lehman MD [Primary Care Provider] - Please follow up with your Primary Care Physician in: 1-2 weeks Test Results: Test results from this visit will be discussed in further detail at your follow- up appointment, if applicable. Please Follow Up With: Prasanna Whittington MD When: as directed Proposed Discharge Date: 01/08/19
--- NOTE | 2019-01-08 12:45 | NURSING ---
estuardo schwartz RN charting reviewed and agree with assessment finding
--- NOTE | 2019-01-08 14:29 | PCM.DC.SUM ---
Discharge Date and Diagnosis Date of Admission: 01/06/19 Date of Discharge: 01/08/19 - Primary Discharge Diagnosis NSTEMI - stent placed to distal RCA CAD - with first diagonal vessel proximal 50% stenosis, LAD with proximal 80% stenosis, mid 50-60% stenosis, left circumflex with first obtuse marginal branch 80-90% stenosis, right coronary artery with posterior descending artery with 90% stenosis HTN HLD - Secondary Discharge Diagnosis Chronic Problems (Last Updated 01/08/19 @ 09:51 by Mayra Montero) Stented coronary artery (Chronic 01/07/19) 2.25 X 16 Synergy DEVIN to Right PDA per Dr. Lopez @ [facility] 01/07/19: pt needs staged procedure to LAD and OM. Atherosclerotic heart disease of [place] coronary artery with other forms of angina pectoris (Chronic) Hypertension (Chronic) Hyperlipidemia (Chronic) Hospital Course and Treatment Imaging Results: RAD/Chest PA and Lateral IMPRESSION: No radiographic evidence of acute cardiopulmonary disease. Echo: Interpretation Summary Normal LV size. Left ventricular systolic function is normal. The estimated ejection fraction is 60 %. Stage 2 diastolic dysfunction. Mild (1+) tricuspid valve insufficiency. Contrast injection was performed. consults: Cardiology - Jessica/Pk Operations: None Procedures: 2-D Echocardiogram, Cardiac catheterization Summary of Care Provided: Hospital Course: The patient is a 63 year old M with a history of hypertension and hyperlipidemia who reported to the emergency room with complaints of chest pain, described as excruciating substernal chest pain radiating in between his scapula. Troponin was elevated and he was admitted for non-STEMI, he was placed in the PCU on telemetry. He was given aspirin, lovenox, . The following morning he underwent a heart cath and was found to have multi vessel disease. A stent was placed to the distal RCA. He was started on high intensity statin, plavix, will continue aspirin, toprol, lisinopril. He had no further symptoms the following day. The plan was to take him for heart caths in the future for further stenting. He was advised to follow up as directed with cardiology, follow up with his PCP in 1-2 weeks. He should stay off work and have no lifting over 5 lbs, it is ok to walk on zero incline until next follow up. This patient was seen by Louis Gabriel PA-C under the supervision of Dr. Villalba[] - Physical Exam General: Alert, Oriented x3, Cooperative HEENT: Atraumatic, PERRLA, EOMI, Normocephalic Neck: Supple, No JVD, Negative Carotid Bruits Lungs: Clear to auscultation, Normal air movement Cardiovascular: Regular rate, No murmurs Abdomen: Bowel Sounds Present, Soft, Non Tender Extremities: No edema, Capillary Refill Less than 3 Seconds Skin: No rashes, No breakdown Musculoskeletal: No Tenderness to Palpation of Joints or Extremities Neurological: Cranial nerves II-XII grossly intact Psych/Mental Status: Normal Affect, Appropriate Vital Signs Temp Pulse Resp BP Pulse Ox 98.1 F 86 12 146/87 H 94 01/08/19 08:00 01/08/19 10:32 01/08/19 10:00 01/08/19 10:32 01/08/19 10:00 Oxygen Flow Rate (L/min) 2 Oxygen Delivery Method Room Air Weight: 262 lb 2.074 oz Body Mass Index (BMI) 36.0 Intake and Output for Last 24 Hours 01/06/19 01/07/19 01/08/19 23:59 23:59 23:59 Intake Total 362 / 362 2450 / 2450 200 / 200 Output Total 600 / 600 Balance 362 / 362 2450 / 2450 -400 / -400 Laboratory Tests Past 24 Hrs 01/08/19 01/08/19 05:00 05:00 WBC 6.1 RBC 4.36 L Hgb 13.3 Hct 40.8 MCV 93.6 MCH 30.5 MCHC 32.6 RDW 12.7 RDW Differential 42.6 Plt Count 156 MPV 9.3 Sodium 143 Potassium 4.2 Chloride 109 H Carbon Dioxide 30.0 Anion Gap 4 L BUN 12 Creatinine 1.01 Estim Creat Clear Calc 82.17 Est GFR (MDRD) Af Amer 96 Est GFR (MDRD) Non-Af 79 BUN/Creatinine Ratio 11.9 Glucose 97 Calcium 8.5 Triglycerides 109 Cholesterol 134 LDL Cholesterol 66 VLDL Cholesterol 22 HDL Cholesterol 46 Discharge Diet: Low fat/ Low Cholesterol, 2000 mg Sodium Diet Discharge Activity: - - No lifting over 5 lbs. Ok to walk on flat surgaces. Home Medications: Medications to take at Discharge Aspirin, Baby 81 mg PO DAILY 01/06/19 Atorvastatin Calcium [Lipitor] 80 mg PO QHS #30 tablet 01/08/19 Clopidogrel Bisulfate [Plavix] 75 mg PO DAILY #30 tablet 01/08/19 Lisinopril [Zestril] 10 mg PO DAILY #30 tablet 01/08/19 Metoprolol(XL)Succ [Toprol Xl (Beta Loulou)] 50 mg PO DAILY #30 tablet 01/08/19 Following Prescrptions Were Given to Patient: Atorvastatin Calcium [Lipitor] 80 mg PO QHS #30 tablet Clopidogrel Bisulfate [Plavix] 75 mg PO DAILY #30 tablet Lisinopril [Zestril] 10 mg PO DAILY #30 tablet Metoprolol(XL)Succ [Toprol Xl (Beta Loulou)] 50 mg PO DAILY #30 tablet Primary Care Physician: Moshe Lehman MD [Primary Care Provider] - Please follow up with your Primary Care Physician in: 1-2 weeks Please Follow Up With: Prasanna Whittington MD When: as directed Disposition: Home Minutes spent on discharge:: 35 Patient Condition:: Stable Medical Necessity - Tobacco Use Smoking Status: Former smoker Meaningful Use Info Meaningful Use Diagnoses (Choose all that apply): AMI - AMI Aspirin given w/in 24hrs of arrival?: Yes ASA at discharge?: Yes Statins at discharge?: Yes Malachi/ARB at discharge?: Yes Beta Loulou at discharge?: Yes Done w/ Acute MO measure.: Yes
== END 2019-01-08 12:35 | disposition home or self-care (01) | DRG 247 ==
LOC: ED 22:06 → PCU 22:06 → ICU 01-08 06:42
PROVIDERS: Internal Medicine Cardiovascular Disease; Admitting Provider Hospitalist; Emergency Provider Emergency Medicine; Family Provider Family Medicine; PCP Family Medicine; Visit Provider Internal Medicine
DX: I21.4 Non-ST elevation (NSTEMI) myocardial infarction (principal); E78.5 Hyperlipidemia, unspecified; I10 Essential (primary) hypertension; E66.9 Obesity, unspecified; Z68.36 Body mass index [BMI] 36.0-36.9, adult; Z87.891 Personal history of nicotine dependence; I25.119 Atherosclerotic heart disease of native coronary artery with unspecified angina pectoris
CPT/HCPCS: 36415; 71046; 80048; 80061; 81002; 84484; 85025; 85027; 85347; 85610; 85730; 92928; 93005; 93306; 93458; 99152; 99153; 99283; C1887; J7030; Q9957; A4216; C1725; C1769; C1874; C1894; C8929; C9600; J0583; Q9967

== ENCOUNTER 2019-01-15 09:42 | Day surgery (SDC) | payer BC, SELFPAY ==
[2019-01-06 22:28] VITALS: BMI 36.0
[2019-01-07 13:45] VITALS: BMI 35.9
[2019-01-14 10:10] VITALS: BMI 35.2
[2019-01-15] VITALS (21 sets, daily range): BP systolic 108–154; BP diastolic 42–78; PULSE 60–81; RESP 15–31; TEMP 36.4–36.7; O2SAT 95–99; BMI 35.4
--- NOTE | 2019-01-15 11:11 | EKG12_ITS ---
Test Reason : POST PROCEDURE Blood Pressure : / mmHG Vent. Rate : 061 BPM Atrial Rate : 061 BPM P-R Int : 162 ms QRS Dur : 094 ms QT Int : 402 ms P-R-T Axes : 036 004 -20 degrees QTc Int : 404 ms Normal sinus rhythm Inferior infarct , age undetermined Abnormal ECG No previous ECGs available Confirmed by AMADA REMY, ANDRES ([id number]), editor book ILEANA MIRELES ([id number]) on 01/21/2019 1:31:38 PM Referred By: Estelle Kelly Confirmed By:ANDRES YBARRA MD
[2019-01-15 11:21] LABS: ACT Activated Clotting Time 384 sec (74-137)
[2019-01-15 11:21] LABS: ACT Activated Clotting Time 235 sec (74-137)
--- NOTE | 2019-01-15 11:21 | CL.I_ITS ---
Patient Name: ANN-MARIE REED Study Date: 01/15/2019 Performing: Estelle Kelly MD Ht: 72.04 inches 183 cm : 1955 Wt: 260.15 lbs 118 kg Age: 63 Gender: male BSA: 2.38 PROCEDURE(S) PERFORMED [id number] W OR WO PTCA, SINGLE CORONARY ARTERY [id number] W OR WO PTCA, SINGLE CORONARY ARTERY CLINICAL PROFILE AND CO-MORBIDITIES Heart Failure: None Angina Classification Anginal Classification w/in 2 Weeks: CCS IV CAD Presentations: Other: Staged PCI CONCLUSIONS Successful PTCA/DEVIN Prox OM2 using Synergy 2.5x16 mm, post-dilated using 2.75 mm balloon Successful DEVIN Prox LAD using Synergy 3.5x16 mm RECOMMENDATIONS ASA Indefinitley Plavix for at least 12 months Follow up with Dr. Whittington DESCRIPTION OF PROCEDURE The patient arrived to the procedure lab. The risks and benefits of the procedure as well as a full d escription of our services here and current unavailability of surgical backup were fully explained to the patient and/or their significant other prior to the catheterization. The Timeout was completed, verifying the correct patient and procedure. The patient's procedural site was prepped and draped in the usual fashion. Local anesthetic was given subcutaneously to right radial region with Lidocaine 2% . Using a modified Seldinger technique, arterial access was obtained via the right radial artery, a 6 Fr sheath was inserted.. XB 3.0 Guide catheter was inserted and engaged into the LCA. RUNTHROUGH Guide wire was advanced t o the 2nd OM. 2.0 X 15 EMERGE Balloon catheter was inserted. Balloon catheter was advanced across les ion in the first obtuse marginal, proximal. PTCA balloon inflated at 6 atms for 10 secs. PTCA balloon inflated at 6 atms for 10 secs. PTCA balloon inflated at 10 atms for 15 secs. Angiogram performed po st balloon dilatation. 2.5 X 16 SYNERGY Drug Eluting stent was inserted. Drug Eluting stent was advan lukas across the lesion in the second obtuse marginal, proximal. Angiogram performed post stent deploym ent. 2.75 X 15 NC EMERGE Balloon catheter was inserted. Balloon catheter was inserted post stent. Ang iogram performed post balloon dilatation. Guide wire was repositioned to the LAD 2.0 X 15 EMERGE Ball oon catheter was inserted. Balloon catheter was advanced across lesion in the LAD, proximal. 3.5 X 16 SYNERGY Drug Eluting stent was inserted. Drug Eluting stent was advanced across the lesion in the LAD, proximal. Angiogram performed post stent deployment. 3.5 x 15 NC EMERGE Balloon c atheter was inserted. Balloon catheter was inserted post stent. Angiogram performed pre balloon dilat ation. Angiogram performed post balloon dilatation. The arterial sheath was pulled and a TR Band was applied for hemostasis 15cc air inserted INTERVENTION INFORMATION LESION SITE: 2nd OM (Proximal) Lesion Complexity: Non-High/Non-C Pre Stenosis: 95 % Pre intervention ASHOK flow: 3 PROCEDURE: Drug Eluting Stent with pre and post dilatation Post Stenosis: 0 % Post intervention ASHOK flow: 3 Lesion Devices: Cordis 6 Fr XB3.0 100cm Guide Catheter Terumo .014 Runthrough Extra Floppy 180cm straight Uri Sci EMERGE MR 2.00x15 BALLOON Uri Sci Synergy MR DEVIN 2.50x16 Uri Sci NC EMERGE MR 2.75x15 BALLOON LESION SITE: LAD (Proximal) Lesion Complexity: Non-High/Non-C Pre Stenosis: 80 % Pre intervention ASHOK flow: 3 PROCEDURE: Drug Eluting Stent with post dilatation Post Stenosis: 0 % Post intervention ASHOK flow: 3 Lesion Devices: Cordis 6 Fr XB3.0 100cm Guide Catheter Terumo .014 Runthrough Extra Floppy 180cm straight Uri Sci EMERGE MR 2.00x15 BALLOON Uri Sci Synergy MR DEVIN 3.50x16 Uri Sci NC EMERGE MR 3.50x15 BALLOON COMPLICATIONS No Complications PROCEDURE MEDICATIONS Versed 2 mg IV Fentanyl 25 mcg IV Oxygen: 2 L/min via nasal cannula Heparin 8000 unit(s) IV 01/15/2019 10:26:40 Heparin given IA 01/15/2019 10:26:55 Heparin 1000 unit(s) IV 01/15/2019 11:10:29 Nitro 200 mcg IC 01/15/2019 10:42:45 Verapamil 2.5mg, Ntg 100mcgs, 2000 units of Heparin given IA 01/15/2019 10:26:55 IV Bolus: .9 NaCl 500 ml total 01/15/2019 10:56:50 IV Fluids: .9 NaCl increased to WO ml/hr 01/15/2019 10:29:14 SUMMARY OF HEMODYNAMIC DATA Time AIR REST ECG 10:03:00 AO 119/58 (84) SA 10:29:40 AO 102/50 (73) 10:32:28 Signed By Estelle Kelly MD On 01/15/2019 11:20:50 AM Estelle Kelly MD
--- NOTE | 2019-01-15 12:18 | CRPHASE1 ---
Patient Communication Former Patient:: Phase I PHII Cardiac Rehab Discussed with Patient:: Yes Guide to Cardiac Rehab Given to Patient:: Yes - Given on 01/07/2019 Cardiac Rehab Facility Choice List Given to Patient:: Yes - Given on 01/07/2019 Choice Program [facility] CR PHII:: Communication Given to CR, Refer to [facility] Mixing Machine Tender:: Deejay Acevedo Refer Phase II Cardiac Rehab:: Yes - Phase II Referal Orders Pending from Dr. Acevedo Sessions:: 36 sessions - 3 days/wk, 12 weeks Phase I Charge:: Level I - Education - Patient was seen by CR staff following his prior PCI intervention; he was scheduled staged intervention for today at that time. Patient will be seen in the office for wound check and referal order will be sent at that time. Cardiac Rehabilitation Info Cardiac Rehabilitation Program Information: Cardiac Rehabilitation is important for patients like you who are recovering from a heart problem. Cardiac rehabilitation programs are recognized as integral to the continued care of the patient with coronary heart disease. The cardiac rehabilitation program is designed to optimize a patient's physical, psychological, and social functioning. Health care transition manager work in cardiac rehabilitation programs and assist you with getting the treatments you need to get stronger and healthier - like exercise, healthy eating habits, and medications. Cardiac rehabilitation has been show to help people with heart problems live longer and have better life enjoyment than people who do not go to cardiac rehabilitation. Please contact the Cardiac Rehabilitation Program at [facility] at in two weeks if you have not heard from them.
--- NOTE | 2019-01-15 12:22 | CRPHASE1_ITS ---
Addendum entered and electronically signed by Reza Hernandez CRT, ORCHID HAND, BS 01/22/19 14:50: The patient was previously referred to CR Phase II by Dr. Acevedo. Due to his planned (scheduled) staged PCI stenting we have postponed scheduling his CR Phase II until all procedures are complete. Original Note: Patient Communication Former Patient:: Phase I PHII Cardiac Rehab Discussed with Patient:: Yes Guide to Cardiac Rehab Given to Patient:: Yes - Given on 01/07/2019 Cardiac Rehab Facility Choice List Given to Patient:: Yes - Given on 01/07/[address] [facility] CR PHII:: Communication Given to CR, Refer to [facility] Crm Functional Analyst:: Deejay Acevedo Refer Phase II Cardiac Rehab:: Yes - Phase II Referal Orders Pending from Dr. Acevedo Sessions:: 36 sessions - 3 days/wk, 12 weeks Phase I Charge:: Level I - Education - Patient was seen by CR staff following his prior PCI intervention; he was scheduled staged intervention for today at that time. Patient will be seen in the office for wound check and referal order will be sent at that time. Cardiac Rehabilitation Info Cardiac Rehabilitation Program Information: Cardiac Rehabilitation is important for patients like you who are recovering from a heart problem. Cardiac rehabilitation programs are recognized as integral to the continued care of the patient with coronary heart disease. The cardiac rehabilitation program is designed to optimize a patient's physical, psychological, and social functioning. Health animal caretaker work in cardiac rehabilitation programs and assist you with getting the treatments you need to get stronger and healthier - like exercise, healthy eating habits, and medications. Cardiac rehabilitation has been show to help people with heart problems live longer and have better life enjoyment than people who do not go to cardiac rehabilitation. Please contact the Cardiac Rehabilitation Program at [facility] at in two weeks if you have not heard from them.
[2019-01-15] MEDS: Atorvastatin Calcium 80 MG Tablet PO (21:30)
[2019-01-16] VITALS (12 sets, daily range): BP systolic 104–130; BP diastolic 50–70; PULSE 57–77; RESP 14–20; TEMP 36.7; O2SAT 95–98
[2019-01-16 04:56] LABS: Hematocrit 41.3 % (40-54); Hemoglobin 13.9 g/dl (13.0-16.5); Mean Corp Hgb Conc 33.7 g/gl (32-36); Mean Corpuscular Hgb 30.7 pg (27.0-32.0); Mean Corpuscular Volume 91.2 fL (80-94); Mean Platelet Vol. 9.3 fl (6.2-12.0); Platelet Count 172 K/mm3 (150-450); RBC Distribution Width SD 42.8 fl (35.1-43.9); Red Blood Count 4.53 M/mm3 (4.6-6.2)
[2019-01-16 04:58] LABS: Scan Indicated on CBC? Y/N NO
[2019-01-16 05:08] LABS: Anion Gap 6 (5-15); BUN 15 mg/dL (7-18); BUN/Creat Ratio 15.4 RATIO (10-20); Calcium,Total 8.7 mg/dL (8.5-10.1); Chloride 109 mmol/L (98-107); Creatinine, Serum 0.98 mg/dL (0.70-1.30); EST Glomerular Filtration Rate 82 mL/min (>60); Est Glom Filt Rate - Afr Amer 99 mL/min (>60); Estimated Creatinine Clearance 84.68 ml/min; Glucose 94 mg/dL (74-106); Potassium 4.2 mmol/L (3.5-5.1); Sodium Level 142 mmol/L (136-145)
--- NOTE | 2019-01-16 07:30 | PN.CARD_ITS ---
Subjectve: Patient seen and evaluated. Appears to be doing well had an uneventful night. Objective: Vital Signs Temp Pulse Resp BP Pulse Ox 98.0 F 63 18 112/70 98 01/16/19 00:00 01/16/19 07:00 01/16/19 07:00 01/16/19 07:00 01/16/19 07:00 Oxygen Delivery Method Room Air Weight: 260 lb 9.382 oz Body Mass Index (BMI) 35.4 Intake and Output for Last 24 Hours 01/14/19 01/15/19 01/16/19 23:59 23:59 23:59 Intake Total 480 / 480 640 / 640 Balance 480 / 480 640 / 640 General: Awake, Alert, Oriented x 3 HEENT: PERRL, EOMI, Sclera Non Icteric Neck: Supple, Good ROM, No Lymph Node Enlargement Lungs: Clear to auscultation Cardiovascular: Regular Rhythm, Normal S1, Normal S2, No Murmurs, No Rubs, No Gallops Vascular: No Carotid Bruits, Normal Femoral Pulses, Normal Radial Pulses, Normal Dorsalis Pedal Pulse, Normal Posterior Tibial Pulses Abdomen: Bowel Sounds Present, Soft, Non Tender, No HSM, No Organomegaly Extremities: No Cyanosis, No Clubbing, No edema Skin: No Rashes Lymphatic: No Lymph Node Enlargement Neurological: No Focal Motor or Sensory Deficit Psych/Mental Status: Appropriate 01/16/19 04:25: WBC 6.0, RBC 4.53 L, Hgb 13.9, Hct 41.3, MCV 91.2, MCH 30.7, MCHC 33.7, RDW 13.0, RDW Differential 42.8, Plt Count 172, MPV 9.3 01/16/19 04:25: Sodium 142, Potassium 4.2, Chloride 109 H, Carbon Dioxide 27.0, Anion Gap 6, BUN 15, Creatinine 0.98, Est GFR (MDRD) Af Amer 99, Est GFR (MDRD) Non-Af 82, BUN/Creatinine Ratio 15.4, Glucose 94, Calcium 8.7 Rhythm: EKG: ECHO: Stress Test: Cardiac Cath: PCI: CT Surgery: Holter monitor: EPS: PPM: CXR: Chest CT Scan: Medical Necessity - Tobacco Use Smoking Status: Former smoker Assessment/Plan 1 coronary artery disease * Patient is status post angioplasty and stenting of the left circumflex artery as well as the proximal left anterior descending artery. Procedure went uneventfully patient appears doing well this morning with no evidence of hematoma no chest discomfort EKG appears unremarkable and hemoglobin is stable and creatinine is also stable with no rise. * Patient will be discharged for outpatient follow-up in my office.
--- NOTE | 2019-01-16 07:31 | PCM.DC.CCA ---
Discharge Diet: Low fat/ Low Cholesterol Lifting Restrictions: 10 pounds and also avoid any pushing or pulling for 3 days after your test. Additional Activity Instructions:: You must have someone drive you home. Do not drive until instructed by your doctor. You must have someone stay with you all night after your test. Rest in bed or on the couch until the next morning. Limit the number of times you go up and down stairs the day of your test. Apply pressure to the puncture site if you sneeze or cough. Call your doctor if your incision/area has: Increased Pain/ Swelling, Increased Redness, Foul Smelling Discharge, Swelling at the incision site Call your doctor if you observe: Fever of 101 or Higher Additional Dressing/Incision Instructions:: Keep the dressing (bandage) on until the next morning. You may then shower, but do not take a tub bath for 5 days after your test. It is normal to have some tenderness and discomfort at the puncture site. Sometimes bruising also occurs. However, if pain, numbness, or coldness occurs below the puncture site (in your leg, toes, arms or fingers) call your doctor at once. You may have a small, marble sized knot at the puncture site. This is normal. Do not rub it. It will go away in 4-6 weeks. Bleeding can occur from the area where the puncture was done. Blood may spurt or drip from the site. If blood spurts, apply pressure right away to stop bleeding and call 911. Although rare, bleeding into the tissue (hematoma) can also occur. If this happens, a large, firm area goose egg under the skin will appear. If any of these occur, lie down as flat as you can and have someone apply firm pressure to the cath site with a gauze pad or a clean washcloth for 10-15 minutes. Call 911 or go to the Emergency Department. Allergies/Adverse Reactions: Allergies No Known Allergies Allergy (Verified 01/06/19 19:39) Medications to take at Discharge Aspirin, Baby 81 mg PO DAILY 01/06/19 Atorvastatin Calcium [Lipitor] 80 mg PO QHS #30 tablet 01/08/19 Clopidogrel Bisulfate [Plavix] 75 mg PO DAILY #30 tablet 01/08/19 Lisinopril [Zestril] 10 mg PO DAILY #30 tablet 03/26/19 Metoprolol(XL)Succ [Toprol Xl (Beta Loulou)] 50 mg PO DAILY #30 tablet 01/08/19 Primary Care Physician: Moshe Lehman MD [Primary Care Provider] - Test Results: Test results from this visit will be discussed in further detail at your follow-up appointment, if applicable. Please Follow Up With: dr sanchez. office will call Cardiac Rehabilitation Info Cardiac Rehabilitation Program Information: Cardiac Rehabilitation is important for patients like you who are recovering from a heart problem. Cardiac rehabilitation programs are recognized as integral to the continued care of the patient with coronary heart disease. The cardiac rehabilitation program is designed to optimize a patient's physical, psychological, and social functioning. Health healthcare prof work in cardiac rehabilitation programs and assist you with getting the treatments you need to get stronger and healthier - like exercise, healthy eating habits, and medications. Cardiac rehabilitation has been show to help people with heart problems live longer and have better life enjoyment than people who do not go to cardiac rehabilitation. Please contact the Cardiac Rehabilitation Program at [facility] at in two weeks if you have not heard from them.
--- NOTE | 2019-01-16 11:15 | EKG12_ITS ---
Test Reason : AM EKG Blood Pressure : / mmHG Vent. Rate : 063 BPM Atrial Rate : 063 BPM P-R Int : 156 ms QRS Dur : 092 ms QT Int : 394 ms P-R-T Axes : 049 021 -11 degrees QTc Int : 403 ms Normal sinus rhythm Normal ECG When compared with ECG of 07-JAN-2019 04:32, Inverted T waves have replaced nonspecific T wave abnormality in Inferior leads Confirmed by AMADA REMY, ANDRES ([id number]), magazine editor ILEANA MIRELES ([id number]) on 01/21/2019 1:27:32 PM Referred By: Estelle Kelly Confirmed By:ANDRES YBARRA MD
== END 2019-01-16 09:50 | disposition home or self-care (01) ==
LOC: CLSP 09:45 → ICU 11:14
PROVIDERS: Family Provider Family Medicine; PCP Family Medicine; Referring Provider Internal Medicine Cardiovascular Disease; Visit Provider Internal Medicine Cardiovascular Disease
DX: I25.10 Atherosclerotic heart disease of native coronary artery without angina pectoris (principal); I10 Essential (primary) hypertension; E78.5 Hyperlipidemia, unspecified; Z95.5 Presence of coronary angioplasty implant and graft; Z87.891 Personal history of nicotine dependence
CPT/HCPCS: 80048; 85027; 85347; 92928; 93005; 99152; 99153; J7040; Q9967; C1725; C1769; C1874; C1887; C1894; C9600

== ENCOUNTER → 2019-11-26 10:01 | Outpatient (CLI) | payer BC, SELFPAY ==
[2019-01-07 13:45] VITALS: BMI 35.9
[2019-11-26 09:04] VITALS: BMI 32.6
[2019-11-26 11:12] LABS: AST(SGOT) 16 U/L (15-37); Alanine Aminotransfer ALT/SGPT 29 U/L (16-61); Albumin, Serum 3.7 g/dL (3.2-5.0); Alkaline Phosphatase 70 U/L (45-117); Bilirubin, Direct 0.28 mg/dL (0.00-0.30); Cholesterol 153 mg/dL (200); Globulin 3.9 g/dL (2.2-4.2); High Density Lipoprotein 63 mg/dL; Protein, Total 7.6 g/dL (6.4-8.2); Triglycerides 107 mg/dL; Very Low Density Lipoprotein 21 mg/dL (5-40)
== END ==
PROVIDERS: PCP Family Medicine; Referring Provider Internal Medicine Cardiovascular Disease; Visit Provider Internal Medicine Cardiovascular Disease
DX: E78.5 Hyperlipidemia, unspecified (principal)
CPT/HCPCS: 36415; 80061; 80076

== ENCOUNTER → 2019-12-30 08:31 | Outpatient (CLI) | payer BC, SELFPAY ==
[2019-01-07 13:45] VITALS: BMI 35.9
[2019-11-26 09:04] VITALS: BMI 32.6
[2019-12-30 10:33] LABS: Anion Gap 3 (5-15); BUN 18 mg/dL (7-18); BUN/Creat Ratio 17.8 RATIO (10-20); Calcium,Total 9.2 mg/dL (8.5-10.1); Chloride 110 mmol/L (98-107); Creatinine, Serum 1.01 mg/dL (0.70-1.30); EST Glomerular Filtration Rate 79 mL/min (>60); Est Glom Filt Rate - Afr Amer 95 mL/min (>60); Glucose 98 mg/dL (74-106); PSA,Total- Diagnostic 1.06 ng/mL (0.0-4.0); Potassium 4.2 mmol/L (3.5-5.1); Sodium Level 141 mmol/L (136-145)
== END ==
PROVIDERS: PCP Family Medicine; Referring Provider Family Medicine; Visit Provider Family Medicine
DX: I10 Essential (primary) hypertension (principal); R33.9 Retention of urine, unspecified
CPT/HCPCS: 36415; 80048; 84153

== ENCOUNTER → 2020-11-24 10:05 | Outpatient (CLI) | payer MEDICARE, OTHER, SELFPAY ==
[2019-01-07 13:45] VITALS: BMI 35.9
[2020-11-24 09:31] VITALS: BMI 35.2
[2020-11-24 10:56] LABS: AST(SGOT) 23 U/L (15-37); Alanine Aminotransfer ALT/SGPT 36 U/L (16-61); Albumin, Serum 3.8 g/dL (3.2-5.0); Alkaline Phosphatase 81 U/L (45-117); Bilirubin, Direct 0.19 mg/dL (0.00-0.30); Cholesterol 164 mg/dL (200); Globulin 3.8 g/dL (2.2-4.2); High Density Lipoprotein 61 mg/dL; Protein, Total 7.6 g/dL (6.4-8.2); Triglycerides 90 mg/dL; Very Low Density Lipoprotein 18 mg/dL (5-40)
== END ==
PROVIDERS: PCP Family Medicine; Referring Provider Internal Medicine Cardiovascular Disease; Visit Provider Internal Medicine Cardiovascular Disease
DX: E78.5 Hyperlipidemia, unspecified (principal)
CPT/HCPCS: 36415; 80061; 80076

== ENCOUNTER → 2020-12-04 06:39 | Outpatient (CLI) | payer MEDICARE, OTHER, SELFPAY ==
[2019-01-07 13:45] VITALS: BMI 35.9
[2020-11-24 09:31] VITALS: BMI 35.2
--- NOTE | 2020-12-04 16:07 | STRESSREP ---
Stress Test Report Exercise myocardial perfusion stress test. 65-year-old man with a history of proximal PDA stenting and stenting to the OM 2 and posterior descending artery and LAD. Stress protocol: Resting EKG demonstrates normal sinus rhythm with a rate of 74 bpm normal intervals are noted resting blood pressure 152/78 mmHg. The patient exercised according to the regular Waqar protocol for a total duration of 6 minutes and 10 seconds. Patient completed 10 seconds into stage III of the Waqar protocol. The maximum heart rate attained was 136 bpm which was 87% of max impacted heart rate the maximum workload was 7.2 metabolic equivalents. The patient maintained sinus rhythm throughout the recording. At rest there were no ST or T wave changes noted to suggest ischemia at peak exercise upsloping ST changes only were noted with no meet the criteria for ischemia. No clinical angina was noted. The test was terminated due to attainment of target heart rate and dyspnea. No chest pain was noted. No arrhythmias were noted. The resting blood pressure was 152/78 with a peak blood pressure of 208/70 mmHg which suggested hypertensive response to exercise. Myocardial perfusion protocol. 14.7 mCi of technetium 99m sestamibi was injected at rest. The patient exercised 6 minutes and 10 seconds and at peak exercise 44.8 mCi of technetium 99m sestamibi was injected stress images were obtained stress and rest images were reconstructed and compared in the short axis vertical and horizontal long axis. Gated images were also obtained Perfusion SPECT analysis: Review of the stress images demonstrate normal uptake of tracer noted in all areas of the myocardium the resting images demonstrate a similar pattern. There is some GI uptake noted involving the inferior wall but there is thickening of all rosa suggesting no evidence of ischemia. No previous infarct is noted. Gated SPECT analysis: The gated ejection fraction is 67%. Conclusion: Normal exercise myocardial perfusion stress test at a moderate workload. Preserved ejection fraction.
== END ==
PROVIDERS: PCP Family Medicine; Referring Provider Internal Medicine Cardiovascular Disease; Visit Provider Internal Medicine Cardiovascular Disease
DX: Z95.5 Presence of coronary angioplasty implant and graft (principal)
CPT/HCPCS: 78452; 93017; A9500; A4216

== ENCOUNTER → 2020-12-28 08:19 | Outpatient (CLI) | payer MEDICARE, OTHER, SELFPAY ==
[2019-01-07 13:45] VITALS: BMI 35.9
[2020-11-24 09:31] VITALS: BMI 35.2
[2020-12-28 10:16] LABS: Anion Gap 2 (5-15); BUN 19 mg/dL (7-18); BUN/Creat Ratio 16.8 RATIO (10-20); Calcium,Total 8.8 mg/dL (8.5-10.1); Chloride 108 mmol/L (98-107); Creatinine, Serum 1.13 mg/dL (0.70-1.30); EST Glomerular Filtration Rate 69 mL/min (>60); Est Glom Filt Rate - Afr Amer 84 mL/min (>60); Glucose 100 mg/dL (74-106); Potassium 4.1 mmol/L (3.5-5.1); Sodium Level 140 mmol/L (136-145)
== END ==
PROVIDERS: PCP Family Medicine; Visit Provider Family Medicine
DX: I10 Essential (primary) hypertension (principal)
CPT/HCPCS: 36415; 80048

== ENCOUNTER 2021-11-24 09:20 | Outpatient (CLI) | payer MEDICARE, OTHER, SELFPAY ==
[2019-01-07 13:45] VITALS: BMI 35.9
[2021-11-24 11:51] LABS: AST(SGOT) 30 U/L (15-37); Alanine Aminotransfer ALT/SGPT 41 U/L (16-61); Albumin, Serum 3.7 g/dL (3.2-5.0); Alkaline Phosphatase 97 U/L (45-117); Bilirubin, Direct 0.26 mg/dL (0.00-0.30); Cholesterol 151 mg/dL (200); Globulin 4.1 g/dL (2.2-4.2); High Density Lipoprotein 59 mg/dL; Protein, Total 7.8 g/dL (6.4-8.2); Triglycerides 84 mg/dL; Very Low Density Lipoprotein 17 mg/dL (5-40)
== END 2021-11-24 23:59 | disposition home or self-care (01) ==
LOC: LAB 09:22
PROVIDERS: PCP Family Medicine; Referring Provider Nurse Practitioner Family; Visit Provider Nurse Practitioner Family
DX: E78.00 Pure hypercholesterolemia, unspecified (principal); E78.5 Hyperlipidemia, unspecified
CPT/HCPCS: 36415; 80061; 80076

== ENCOUNTER 2021-12-27 09:51 | Outpatient (CLI) | payer MEDICARE, OTHER, SELFPAY ==
[2019-01-07 13:45] VITALS: BMI 35.9
[2021-12-27 12:21] LABS: Anion Gap 4 (5-15); BUN 19 mg/dL (7-18); BUN/Creat Ratio 18.8 RATIO (10-20); Calcium,Total 9.3 mg/dL (8.5-10.1); Chloride 111 mmol/L (98-107); Creatinine, Serum 1.01 mg/dL (0.70-1.30); EST Glomerular Filtration Rate 78 mL/min (>60); Est Glom Filt Rate - Afr Amer 95 mL/min (>60); Glucose 104 mg/dL (74-106); Potassium 4.3 mmol/L (3.5-5.1); Sodium Level 142 mmol/L (136-145)
== END 2021-12-27 23:59 | disposition home or self-care (01) ==
LOC: MFPLAB 09:55
PROVIDERS: PCP Family Medicine; Visit Provider Family Medicine
DX: I10 Essential (primary) hypertension (principal)
CPT/HCPCS: 36415; 80048

== ENCOUNTER 2022-06-03 00:30 | Observation (INO) | payer MEDICARE, OTHER, SELFPAY ==
[2019-01-07 13:45] VITALS: BMI 35.9
[2022-06-03] VITALS (23 sets, daily range): BP systolic 122–173; BP diastolic 54–80; PULSE 57–78; RESP 17–21; TEMP 35.9–36.8; O2SAT 93–98; BMI 34.4
--- NOTE | 2022-06-03 00:47 | EKG12_ITS ---
Test Reason : CP Blood Pressure : / mmHG Vent. Rate : 071 BPM Atrial Rate : 071 BPM P-R Int : 164 ms QRS Dur : 096 ms QT Int : 390 ms P-R-T Axes : 050 034 069 degrees QTc Int : 423 ms Normal sinus rhythm Nonspecific ST abnormality Abnormal ECG Confirmed by EDEN REMY, GANESH ([id number]), book editor ILEANA MIRELES ([id number]) on 06/03/2022 9:50:03 AM Referred By: SUNNY Confirmed By:GANESH HARMON MD
--- NOTE | 2022-06-03 00:47 | RAD_ITS ---
EXAM: XR CHEST, 1 VIEW CLINICAL INDICATION: chest pain TECHNIQUE: Frontal view of the chest. This report was created using [employer] report generation technology. COMPARISON: 03/08/2019. FINDINGS: LUNGS AND PLEURAL SPACES: Unremarkable. No consolidation or edema. No pneumothorax. No effusion. HEART: Unremarkable. Cardiac silhouette not enlarged. MEDIASTINUM: Central airways and mediastinal contour are unremarkable. BONES/JOINTS: Unremarkable. SOFT TISSUES: Unremarkable. RAD/Chest 1 View (Portable) IMPRESSION: No acute cardiopulmonary abnormality. No change. Electronically Signed: Bimal Hinojosa MD at 1:14 EDT ,
[2022-06-03] MEDS: Aspirin 81 MG TAB.CHEW 324 MG PO (00:54)
[2022-06-03 00:58] LABS: Basophil# 0.04 X10^3/uL; Basophil% 0.7 % (0-1); Eosinophil# 0.16 X10^3/uL; Eosinophils% 2.7 % (0-5); Hematocrit 38.6 % (40-54); Lymphocyte % 32.2 % (19-41); Mean Corp Hgb Conc 33.7 g/dL (32-36); Mean Corpuscular Hgb 31.9 pg (27.0-32.0); Mean Corpuscular Volume 94.6 fL (80-94); Mean Platelet Vol. 9.1 fl (6.2-12.0); Monocyte# 0.79 X10^3/uL; Monocyte% 13.4 % (0-10); NRBC Flagged by Analyzer 0 % (0-5); Neutrophil % 50.8 % (47-70); Platelet Count 162 K/mm3 (150-450); RBC Distribution Width CV 12.6 % (11.6-14.6); RBC Distribution Width SD 43.7 fl (35.1-43.9); Red Blood Count 4.08 M/mm3 (4.6-6.2); White Blood Count 5.9 K/mm3 (4.4-11.0)
--- NOTE | 2022-06-03 01:20 | ED.VIS.CHEST ---
HPI History of Present Illness Chief Complaint: Chest Pain Narrative Narrative: 67-year-old male with history of hyperlipidemia, hypertension, CAD, VA, cardiac stents presenting with chest pressure. He states that at about 930 last evening he had 30 minutes of chest pressure. He states he took nitroglycerin and this eventually helped his pain. He states that over the course of the last week he has been having intermittent chest pressure which is with exertion. He states that this typically will resolve in about 15 minutes. He does not feel like he is been short of breath, lightheaded, nauseous. Patient states that he was going to make appointment with Dr. Whittington for next week due to his increasing symptoms. He felt as if something was going on. Patient has not had any fever, chills, cough. No body aches or chills. He has been in his normal state of health up until this last week. [facility] Medical History ACS (acute coronary syndrome) Atherosclerotic heart disease of [place] coronary artery without angina pectoris Essential (primary) hypertension History of non-ST elevation myocardial infarction (NSTEMI) (01/06/19) Hyperlipidemia Obesity Home Medications aspirin 81 mg tablet,delayed release 81 mg PO DAILY 02/13/19 [History Last Taken Unknown] atorvastatin 10 mg tablet 10 mg PO QHS #90 tabs 11/24/21 [Rx Last Taken Unknown] lisinopril 10 mg tablet 10 mg PO DAILY #90 tabs 11/24/21 [Rx Last Taken Unknown] metoprolol succinate 50 mg tablet,extended release 24 hr 50 mg PO DAILY #90 tabs 11/24/21 [Rx Last Taken Unknown] clopidogrel 75 mg tablet (Plavix) 75 mg PO DAILY 06/03/22 [History Last Taken Unknown] Allergy/AdvReac Type Severity Reaction Status Date / Time No Known Allergies Allergy Verified 11/24/21 08:39 Surgical History History of coronary artery stent placement (01/15/19) Social History Smoking Status: Former smoker how long ago did patient quit smokin + years alcohol intake: current alcohol intake frequency: a few times a week Alcohol type: beer substance use type: does not use caffeine: Yes Type: coffee Number of servings: 1 ROS ROS ED Constitutional Constitutional ED: Denies chills or fever(s) Eyes Eyes: Denies blurry vision or change in vision ENT ENT ED: Denies rhinorrhea or sore throat Cardiovascular Cardiovascular: Reports as per HPI Respiratory/Chest Respiratory/Chest: Denies cough or dyspnea Gastrointestinal Gastrointestinal: Denies abdominal pain or constipation Genitourinary Genitourinary ED: Denies dysuria or hematuria Musculoskeletal Musculoskeletal: Denies arthralgias or back pain Integumentary Denies abscess or Abrasions Neurologic Neurologic: Denies headache(s) or paresthesias Psychiatric Psychiatric: Denies anxiety or depression EXAM Physical Exam Const Vital Signs: 06/03/22 00:31 06/03/22 00:36 06/03/22 00:47 Temperature 96.6 F L Temperature Source Temporal Pulse Rate 78 Respiratory Rate 18 Respiratory Effort Normal Non-Labored Blood Pressure 173/73 H Blood Pressure Mean 106 Pulse Ox 95 Oxygen Delivery Method Room Air Room Air 06/03/22 01:31 06/03/22 02:00 Temperature Temperature Source Pulse Rate 57 L 64 Respiratory Rate 21 H 21 H Respiratory Effort Blood Pressure 141/69 H 150/68 H Blood Pressure Mean 93 95 Pulse Ox 93 96 Oxygen Delivery Method Room Air Room Air Positive well nourished General Appearance ED: NAD; Negative for pallor HEENT Reports TM's clear and moist mucous membranes normocephalic and atraumatic Tympanic Membrane ED: Yes TM's clear Eyes PERRL and EOMs intact bilaterally General Eye ED: Negative for pale conjunctiva or scleral icterus Chest Wall inspection of chest normal and palpation of chest normal Resp normal respiratory effort and clear to auscultation bilaterally Auscultation: Negative for rales, rhonchi or wheezes Cardio regular rate and regular rhythm Peripheral Pulses: pulses 2+ throughout Extremity normal to inspection Neuro oriented x3 and CN's II-XII intact bilaterally Sensorium / Orientation: awake and alert Motor Exam: strength 5/5 throughout Psych mental status grossly normal Skin General Skin Exam: Negative for jaundice or pallor Heart Score History: Slightly/Non-Suspicious Score: 0 MDM MDM MDM Narrative Medical decision making narrative: Patient presenting with chest pain. Patient does have history of cardiac stents in the right coronary artery 01/07/[address] Lopez, and then had staged stents placed in OM 2 in the LAD for 12/05/[address] Kelly. EKG performed on arrival shows a sinus rhythm with a ventricular rate of 71 bpm with what appears to be some new ST depressions in leads I, 2, aVF, V4 through V6 on my interpretation. Although there is possibly some slight elevation in V2 does not meet criteria for STEMI and compared with his previous EKG from 16 January 2019 this does appear similar in lead V2. Patient was given 324 mg of aspirin. He is currently pain-free after taking nitroglycerin at home. He does state that on his walk into the ER he was feeling a little bit of chest pressure which was milder than what he had been experiencing recently. I do have concern for ACS based on his EKG changes and symptoms. CBC is within normal limits. BMP shows normal renal function electrolytes. High-sensitivity troponin came back at 285. Patient discussed with Dr. Francisco and he recommended heparin drip. Plan is likely cardiac catheterization tomorrow. Patient to be kept NPO. Heparin drip was started in the ER. Patient was given 324 mg of aspirin. He is currently pain-free. Impression: 1. Chest pain 2. NSTEMI 3. History of cardiac stents Lab Data Attestation: I reviewed the patient's lab results. Labs: Laboratory Results - last 24 hr 06/03/22 06/03/22 00:47 00:47 WBC 5.9 RBC 4.08 L Hgb 13.0 Hct 38.6 L MCV 94.6 H MCH 31.9 MCHC 33.7 RDW Std Deviation 43.7 RDW Coeff of Mark 12.6 Plt Count 162 MPV 9.1 Immature Gran % (Auto) 0.200 Neut % (Auto) 50.8 Lymph % (Auto) 32.2 [place] % (Auto) 13.4 H Eos % (Auto) 2.7 Baso % (Auto) 0.7 Absolute Neuts (auto) 3.0 Absolute Lymphs (auto) 1.90 Nucleated RBC % 0 Sodium 142 Potassium 3.8 Chloride 108 H Carbon Dioxide 29.0 Anion Gap 5 BUN 18 Creatinine 0.99 Estim Creat Clear Calc 79.47 Est GFR (MDRD) Af Amer 97 Est GFR (MDRD) Non-Af 80 BUN/Creatinine Ratio 18.1 Glucose 109 H Calcium 9.3 Troponin I High Sens 285 H* Radiography Diagnostic Testing: Clinical Impression(s) from Imaging Studies Chest X-Ray 06/03/22 00:47 IMPRESSION: No acute cardiopulmonary abnormality. No change. Electronically Signed: Bimal Hinojosa MD at 1:14 EDT , Discharge Plan Triage Chief Complaint: Chest Pain ED Provider: Yang Temple Dx/Rx/DC Orders Prescriptions: No Action aspirin 81 mg tablet,delayed release (DR/EC) 81 mg PO DAILY atorvastatin 10 mg tablet 10 mg PO QHS Qty: 90 3RF metoprolol succinate 50 mg tablet extended release 24 hr 50 mg PO DAILY Qty: 90 3RF lisinopril 10 mg tablet 10 mg PO DAILY Qty: 90 3RF clopidogrel [Plavix] 75 mg tablet 75 mg PO DAILY Primary Care Provider: Moshe Lehman Referrals: Moshe Lehman MD [Primary Care Provider] -
[2022-06-03 02:01] LABS: Anion Gap 5 (5-15); BUN 18 mg/dL (7-18); BUN/Creat Ratio 18.1 RATIO (10-20); Calcium,Total 9.3 mg/dL (8.5-10.1); Chloride 108 mmol/L (98-107); Creatinine, Serum 0.99 mg/dL (0.70-1.30); EST Glomerular Filtration Rate 80 mL/min (>60); Est Glom Filt Rate - Afr Amer 97 mL/min (>60); Estimated Creatinine Clearance 79.47 ml/min; Glucose 109 mg/dL (74-106); Potassium 3.8 mmol/L (3.5-5.1); Sodium Level 142 mmol/L (136-145); Troponin-I HS (w/2H Reflex) 285 pg/mL (3.0-78.0)
--- NOTE | 2022-06-03 02:40 | PCM.HP.STD ---
HPI - General General Date of Admission: 06/03/22 Date of Service: 06/03/22 Chief Complaint: Chest pain HPI Narrative ANN-MARIE REED, is a 67 M with a significant history of hypertension; and CAD status post staged PCI with 3 stents in 2019 who presents to the emergency department with substernal chest pain. This chest pain has been episodic for 1 week. It comes about 2 times each day. The chest pain last for about 15 minutes. On the night before presentation patient had chest pain and his left. He woke up still with chest pain. His chest pain lasted for about 30 minutes. When he took nitroglycerin his chest pain went away in less than 5 minutes. He denies any nausea, vomiting, shortness of breath, or diaphoresis with the chest pain. The chest pain radiates to the back of her neck. He described chest pain as a dull ache. His chest pain is similar to the previous heart attack colic that at this time around the chest pain is of lesser severity. [facility] Medical History (Updated 06/03/22 @ 03:43 by Olena Ruano) ACS (acute coronary syndrome) Atherosclerotic heart disease of [place] coronary artery without angina pectoris Chest pain Coronary artery disease Essential (primary) hypertension GERD (gastroesophageal reflux disease) History of non-ST elevation myocardial infarction (NSTEMI) (01/06/19) Hyperlipidemia Hypertension Kidney stones Obesity Home Medications aspirin 81 mg tablet,delayed release 81 mg PO DAILY 02/13/19 [History Last Taken Unknown] atorvastatin 10 mg tablet 10 mg PO QHS #90 tabs 11/24/21 [Rx Last Taken Unknown] lisinopril 10 mg tablet 10 mg PO DAILY #90 tabs 11/24/21 [Rx Last Taken Unknown] metoprolol succinate 50 mg tablet,extended release 24 hr 50 mg PO DAILY #90 tabs 11/24/21 [Rx Last Taken Unknown] clopidogrel 75 mg tablet (Plavix) 75 mg PO DAILY 06/03/22 [History Last Taken Unknown] Allergy/AdvReac Type Severity Reaction Status Date / Time No Known Allergies Allergy Verified 11/24/21 08:39 Family History (Updated 06/03/22 @ 03:[address] Dino Aguilar MD) Other Heart disease Surgical History History of coronary artery stent placement (01/15/19) Social History Smoking Status: Former smoker how long ago did patient quit smokin + years alcohol intake: current alcohol intake frequency: a few times a week Alcohol type: beer substance use type: does not use caffeine: Yes Type: coffee Number of servings: 1 ROS ROS Narrative Pertinent positives and pertinent negatives as noted in HPI. All other systems were reviewed and are negative Vital Signs Vital Signs Vital Signs: 06/03/22 00:31 06/03/22 00:36 06/03/22 00:47 Temperature 96.6 F L Temperature Source Temporal Pulse Rate 78 Respiratory Rate 18 Respiratory Effort Normal Non-Labored Blood Pressure 173/73 H Blood Pressure Mean 106 Pulse Ox 95 Oxygen Delivery Method Room Air Room Air 06/03/22 01:31 06/03/22 02:00 Temperature Temperature Source Pulse Rate 57 L 64 Respiratory Rate 21 H 21 H Respiratory Effort Blood Pressure 141/69 H 150/68 H Blood Pressure Mean 93 95 Pulse Ox 93 96 Oxygen Delivery Method Room Air Room Air Weight Weight: 115.2 kg Body Mass Index (BMI) 34.4 Physical Exam Narrative Physical exam: General: Well-nourished, well-developed. Head: Normocephalic, atraumatic, no tenderness Eyes: Vision is grossly intact. EOMI ENT, no trauma, moist mucous membranes, no rhinorrhea Neck: Nontender, full range of motion, no spinal tenderness, deformities, step-off CVS: Regular rate and rhythm. S1-S2 present. No murmur, gallop or rub. Respiratory : clear to auscultation bilaterally, chest wall nontender, no wheezing Abdomen: Soft, nontender, nondistended, normal bowel sounds, no masses : Deferred Back: Nontender, no CVA tenderness, no midline spinal tenderness, deformities, step-offs Extremities: Nontender full range of motion, no trauma Skin: Normal color, no trauma, abrasions Neuro: Alert, oriented, cranial nerves II through XII grossly intact. Psychiatry: Normal mood. Normal affect. Not depressed. Not anxious. Results Lab / Micro Data Attestation: I reviewed the patient's lab results. Result Diagrams: 06/03/22 00:47 06/03/22 00:47 Labs: Laboratory Results - last 24 hr 06/03/22 00:47: WBC 5.9, RBC 4.08 L, Hgb 13.0, Hct 38.6 L, MCV 94.6 H, MCH 31.9, MCHC 33.7, RDW Std Deviation 43.7, RDW Coeff of Mark 12.6, Plt Count 162, MPV 9.1, Immature Gran % (Auto) 0.200, Neut % (Auto) 50.8, Lymph % (Auto) 32.2, [place] % (Auto) 13.4 H, Eos % (Auto) 2.7, Baso % (Auto) 0.7, Absolute Neuts (auto) 3.0, Absolute Lymphs (auto) 1.90, Nucleated RBC % 0 06/03/22 00:47: Sodium 142, Potassium 3.8, Chloride 108 H, Carbon Dioxide 29.0, Anion Gap 5, BUN 18, Creatinine 0.99, Estim Creat Clear Calc 79.47, Est GFR (MDRD) Af Amer 97, Est GFR (MDRD) Non-Af 80, BUN/Creatinine Ratio 18.1, Glucose 109 H, Calcium 9.3, Troponin I High Sens 285 H* Radiology Impression Chest X-Ray 06/03/22 00:47 IMPRESSION: No acute cardiopulmonary abnormality. No change. Electronically Signed: Bimal Hinojosa MD at 1:14 EDT , Assessment & Plan Assessment/Plan (1) Acute non-ST elevation myocardial infarction (NSTEMI): (2) Essential (primary) hypertension: PLAN: Plan Acute Non ST elevation NV Chest pain and elevated initial high sensitive troponin on presentation. Initial high-sensitivity troponin was 285, trend. Place on a monitored bed at the progressive care unit Actual CXR image was independently visualized. No acute cardiopulmonary process was noted. I agree with radiologist interpretation Actual EKG tracing was independently visualized. EKG tracing showed subtle ST depression in inferior lateral leads that looks new compared to previous. A full dose aspirin was given at the ED. Daily baby aspirin and Plavix continued. SL NTG 0.4 mg prn as needed for chest pain ordered Morphine as needed for pain ordered We will check lipid panel. Statin: On home Lipitor 10 mg daily. Report that with higher dose of statin he gets muscle aches and cramps. Atorvastatin 10 mg nightly continued Anticoagulation: Emergency department doctor discussed the case with cardiology on-call who recommended heparin drip. Heparin drip started emergency department and continued. Stat EKG as needed for chest pain Old records reviewed showed that patient had cardiac catheterization on 01/07/2019. Conclusion was Severe coronary artery disease involving the proximal left anterior descending artery, the first obtuse marginal branch, the distal right coronary artery and preserved ejection fraction with inferior hypokinesis. The patient subsequently had a stage PCI at that time. Lisinopril and metoprolol counseled Echocardiogram on 01/06/2019 showed ejection fraction of 60% with stage II diastolic dysfunction. Mild transcatheter valve insufficiency. Pulmonary artery systolic pressure was 36 mmHg. Repeat echocardiogram ordered. Cardiology consult Hypertension Blood pressure is not within goal Home blood pressure medication continued. As needed hydralazine ordered. Trend blood pressure and adjust blood pressure medications. DVT prophylaxis: Not indicated as patient has been started on heparin drip for non-STEMI. Charges/Coding Visit Charges OBSV E&M: 89838 Initial observation care L3
[2022-06-03 02:56] LABS: Reflex Troponin-HS? (from REC) Y
[2022-06-03 03:01] LABS: Prothrombin Time (Protime)PT. 13.2 SECONDS (11.7-14.9)
[2022-06-03] MEDS: HEPARIN/D5w 25,000 UNITS 25,000 UNITS/250 ML IV.SOLN. 10 UNITS CONT INF (03:07)
--- NOTE | 2022-06-03 03:15 | EKG12_ITS ---
Test Reason : CP admission Blood Pressure : / mmHG Vent. Rate : 062 BPM Atrial Rate : 062 BPM P-R Int : 162 ms QRS Dur : 096 ms QT Int : 422 ms P-R-T Axes : 052 024 049 degrees QTc Int : 428 ms Normal sinus rhythm Nonspecific ST abnormality Abnormal ECG Confirmed by EDEN REMY, GANESH ([id number]), medical editor ILEANA MIRELES ([id number]) on 06/06/2022 9:05:15 AM Referred By: Jeff Confirmed By:GANESH HARMON MD
[2022-06-03 03:55] LABS: Troponin-I HS 278 pg/mL (3.0-78.0)
[2022-06-03 07:42] LABS: Troponin-I HS 260 pg/mL (3.0-78.0)
[2022-06-03] MEDS: Metoprolol(XL)Succ 50 MG Tablet PO (08:17)
[2022-06-03] MEDS: Lisinopril 10 MG Tablet PO (08:18)
[2022-06-03] MEDS: Aspirin E.C. 81 MG Tablet PO (08:18)
[2022-06-03] MEDS: Clopidogrel Bisulfate 75 MG Tablet PO (08:18)
--- NOTE | 2022-06-03 08:25 | CON.PCM.CA_ITS ---
Documented by User: Cassy TURNER PA 06/03/22 09:57 Assessment & Plan Assessment/Plan (1) Acute non-ST elevation myocardial infarction (NSTEMI): PLAN: * Pt will undergo a heart cath today * will continue with his ASa, Atorvastatin, Plavix, Lisinopril, Metoprolol (2) Essential (primary) hypertension: PLAN: * will continue with lisinopril and metoprolol, will monitor and adjust if need be (3) Hyperlipidemia: QUALIFIERS: Hyperlipidemia type: unspecified Qualified Code(s): E78.5 - Hyperlipidemia, unspecified PLAN: * Pt will continue with his atorvastatin HPI Consult Data Date of Consult: 06/03/22 HPI Narrative HPI Narrative: ANN-MARIE REED, is a 67 M who presented to the ER last night for chest pain. Patient states that he had chest discomfort about 930 the evening before he came to the emergency room. Lasted about 30 minutes. He did take nitroglycerin and this did help with the symptoms. Earlier last week he was having intermittent episodes of chest pressure with exertion. He tells me that he uses approx 12 NTG this past week. They would last about 15 minutes and resolve on their own.High-sensitivity troponin came back elevated at 285 and then has trended to 278 third troponin was 260. He has a history of coronary artery disease with drug-eluting stent placement to proximal right PDA on 01/07/2019 and staged stenting with drug-eluting stent placement to proximal OM 2 and proximal LAD on 01/15/2019.? He also has a history of hypertension and hyperlipidemia. He has a stress test in 2019 that was negative for ischemia at a moderate workload. [facility] Medical History ACS (acute coronary syndrome) Atherosclerotic heart disease of [place] coronary artery without angina pectoris Chest pain Coronary artery disease Essential (primary) hypertension GERD (gastroesophageal reflux disease) History of non-ST elevation myocardial infarction (NSTEMI) (01/06/19) Hyperlipidemia Hypertension Kidney stones Obesity Home Medications aspirin 81 mg tablet,delayed release 81 mg PO DAILY 02/13/19 [History Last Taken Unknown] atorvastatin 10 mg tablet 10 mg PO QHS #90 tabs 11/24/21 [Rx Last Taken Unknown] lisinopril 10 mg tablet 10 mg PO DAILY #90 tabs 11/24/21 [Rx Last Taken Unknown] metoprolol succinate 50 mg tablet,extended release 24 hr 50 mg PO DAILY #90 tabs 11/24/21 [Rx Last Taken Unknown] clopidogrel 75 mg tablet (Plavix) 75 mg PO DAILY 06/03/22 [History Last Taken Unknown] Allergy/AdvReac Type Severity Reaction Status Date / Time No Known Allergies Allergy Verified 11/24/21 08:39 Family History Other Heart disease Surgical History History of coronary artery stent placement (01/15/19) Social History Smoking Status: Former smoker how long ago did patient quit smokin + years alcohol intake: current alcohol intake frequency: a few times a week Alcohol ty pe: beer substance use type: does not use caffeine: Yes Type: coffee Number of servings: 1 ROS Constitutional Constitutional: Denies change in weight, chills, fatigue, frequent falls, headache(s) or lethargy Eyes Eyes: Denies acute decrease in peripheral vision, blurry vision or change in vision ENT HEENT: Denies dizziness, dry mouth, epistaxis, headache(s), tinnitus or vertigo Cardiovascular Cardiovascular: Reports chest pain with activity; Denies chest pain at rest, claudication, dyspnea at rest, dyspnea on exertion, edema, irregular heart rhythm, lightheadedness, orthopnea, orthostatic symptoms, palpitations or pedal edema Respiratory/Chest Respiratory/Chest: Denies cough, dyspnea, dyspnea on exertion, tachypnea or wheezing Gastrointestinal Gastrointestinal: Denies abdominal pain, bloating, coffee ground emesis, diarrhea, heartburn, hematemesis, hematochezia, melena or nausea Genitourinary Genitourinary: Denies hematuria Musculoskeletal Musculoskeletal: Denies myalgias, numbness or tingling Neurologic Neurologic: Denies abnormal gait, abnormal speech, memory loss, paresthesias or weakness Physical Exam Const alert, oriented x3, no apparent distress and healthy appearing HEENT normocephalic, head/scalp atraumatic, hearing grossly normal bilaterally, external ears normal, external nose normal and moist oral mucous membranes Eyes PERRL, EOMs intact bilaterally, conjunctivae normal and no scleral icterus Neck no lymphadenopathy, supple and no JVD Resp normal respiratory effort and clear to auscultation bilaterally Cardio regular rate, regular rhythm, S1 normal heart sound, S2 normal heart sound, no murmurs, no rub, no gallops, no clicks, no JVD and peripheral pulses 2+ throughout GI normal to inspection, nondistended, normoactive bowel sounds, soft to palpation, non-tender and non-distended Extremity normal to inspection, normal capillary refill, no clubbing, cyanosis or edema and no pedal edema Neuro oriented x3, CN's II-XII intact bilaterally, moves all extremities and no focal motor deficits Psych cooperative and affect normal Risk Stratification Risk Stratification Applicable: Yes Age >/= 65: Yes >/= 3 CAD Risk Factors (HTN, HLD, DM, family hx of CAD, or current smoker): Yes Aspirin Use in the Past 7 Days: Yes Severe Angina (>/= episodes in 24 hours): Yes EKG ST Changes >/= 0.5mm: No Positive Cardiac Marker: Yes ASOHK Risk Stratification Score: 5 ASHOK % Risk: 25% Risk Charges/Coding Visit Charges Office Visits / Consults: [id number] IP Consult L4 Objective Data Vital Signs: Vital Signs Temp Pulse Resp BP Pulse Ox O2 Del Method 98.1 F 66 18 144/64 H 96 Room Air 06/03/22 03:20 06/03/22 08:17 06/03/22 03:20 06/03/22 08:17 06/03/22 03:20 06/03/22 07:20 Oxygen Delivery Method Room Air Weight: 249 lb 12.54 oz Body Mass Index (BMI) 34.4 Lab / Micro Data Result Diagrams: 06/03/22 00:47 06/03/22 00:47 Labs: Laboratory Results - last 24 hr 06/03/22 00:47: WBC 5.9, RBC 4.08 L, Hgb 13.0, Hct 38.6 L, MCV 94.6 H, MCH 31.9, MCHC 33.7, RDW Std Deviation 43.7, RDW Coeff of Mark 12.6, Plt Count 162, MPV 9.1, Immature Gran % (Auto) 0.200, Neut % (Auto) 50.8, Lymph % (Auto) 32.2, [place] % (Auto) 13.4 H, Eos % (Auto) 2.7, Baso % (Auto) 0.7, Absolute Neuts (auto) 3.0, Absolute Lymphs (auto) 1.90, Nucleated RBC % 0 06/03/22 00:47: Sodium 142, Potassium 3.8, Chloride 108 H, Carbon Dioxide 29.0, Anion Gap 5, BUN 18, Creatinine 0.99, Estim Creat Clear Calc 79.47, Est GFR (MDRD) Af Amer 97, Est GFR (MDRD) Non-Af 80, BUN/Creatinine Ratio 18.1, Glucose 109 H, Calcium 9.3, Troponin I High Sens 285 H* 06/03/22 02:47: PT 13.2, INR 1.0, APTT 32.0 06/03/22 02:47: Troponin I High Sens 278 H* 06/03/22 06:15: Troponin I High Sens 260 H* Cardiology Labs/Tests 06/03/22 00:47: WBC 5.9, RBC 4.08 L, Hgb 13.0, Hct 38.6 L, MCV 94.6 H, MCH 31.9, MCHC 33.7, Plt Count 162, MPV 9.1, Immature Gran % (Auto) 0.200, Neut % (Auto) 50.8, Lymph % (Auto) 32.2, [place] % (Auto) 13.4 H, Eos % (Auto) 2.7, Baso % (Auto) 0.7, Absolute Neuts (auto) 3.0, Nucleated RBC % 0 06/03/22 00:47: Sodium 142, Potassium 3.8, Chloride 108 H, Carbon Dioxide 29.0, Anion Gap 5, BUN 18, Creatinine 0.99, Est GFR (MDRD) Af Amer 97, Est GFR (MDRD) Non-Af 80, BUN/Creatinine Ratio 18.1, Glucose 109 H, Calcium 9.3 06/03/22 02:47: PT 13.2, INR 1.0, APTT 32.0 Rhythm: SR EKG: Radiography Diagnostic Testing: Radiology Impression Chest X-Ray 06/03/22 00:47 IMPRESSION: No acute cardiopulmonary abnormality. No change. Electronically Signed: Bimal Hinojosa MD at 1:14 EDT , Documented by User: Dr. Prasanna Whittington MD 06/03/22 09:59 Assessment & Plan Assessment/Plan (1) Acute non-ST elevation myocardial infarction (NSTEMI): (2) Essential (primary) hypertension: (3) Hyperlipidemia: QUALIFIERS: Hyperlipidemia type: unspecified Qualified Code(s): E78.5 - Hyperlipidemia, unspecified HPI Consult Data Date of Consult: 06/03/22 [facility] Medical History ACS (acute coronary syndrome) Atherosclerotic heart disease of [place] coronary artery without angina pectoris Chest pain Coronary artery disease Essential (primary) hypertension GERD (gastroesophageal reflux disease) History of non-ST elevation myocardial infarction (NSTEMI) (01/06/19) Hyperlipidemia Hypertension Kidney stones Obesity Home Medications aspirin 81 mg tablet,delayed release 81 mg PO DAILY 02/13/19 [History Last Taken Unknown] atorvastatin 10 mg tablet 10 mg PO QHS #90 tabs 11/24/21 [Rx Last Taken Unknown] lisinopril 10 mg tablet 10 mg PO DAILY #90 tabs 11/24/21 [Rx Last Taken Unknown] metoprolol succinate 50 mg tablet,extended release 24 hr 50 mg PO DAILY #90 tabs 11/24/21 [Rx Last Taken Unknown] clopidogrel 75 mg tablet (Plavix) 75 mg PO DAILY 06/03/22 [History Last Taken Unknown] Allergy/AdvReac Type Severity Reaction Status Date / Time No Known Allergies Allergy Verified 11/24/21 08:39 Family History Other Heart disease Surgical History History of coronary artery stent placement (01/15/19) Social History Smoking Status: Former smoker how long ago did patient quit smokin + years alcohol intake: current alcohol intake frequency: a few times a week Alcohol type: beer substance use type: does not use caffeine: Yes Type: coffee Number of servings: 1 Risk Stratification Age >/= 65: Yes ASHOK Risk Stratification Score: 5 ASHOK % Risk: 25% Risk Lab / Micro Data Result Diagrams: 06/03/22 00:47 06/03/22 00:47
--- NOTE | 2022-06-03 09:56 | PN.CARD_ITS ---
Subjective Subjective Patient seen and evaluated. Objective Data Vital Signs: Vital Signs Temp Pulse Resp BP Pulse Ox O2 Del Method 97.8 F 66 18 144/64 H 97 Room Air 06/03/22 08:28 06/03/22 08:28 06/03/22 08:28 06/03/22 08:28 06/03/22 08:28 06/03/22 08:28 Oxygen Delivery Method Room Air Weight: 249 lb 12.54 oz Body Mass Index (BMI) 34.4 Lab / Micro Data Result Diagrams: 06/03/22 00:47 06/03/22 00:47 Labs: Laboratory Results - last 24 hr 06/03/22 00:47: WBC 5.9, RBC 4.08 L, Hgb 13.0, Hct 38.6 L, MCV 94.6 H, MCH 31.9, MCHC 33.7, RDW Std Deviation 43.7, RDW Coeff of Mark 12.6, Plt Count 162, MPV 9.1, Immature Gran % (Auto) 0.200, Neut % (Auto) 50.8, Lymph % (Auto) 32.2, [place] % (Auto) 13.4 H, Eos % (Auto) 2.7, Baso % (Auto) 0.7, Absolute Neuts (auto) 3.0, Absolute Lymphs (auto) 1.90, Nucleated RBC % 0 06/03/22 00:47: Sodium 142, Potassium 3.8, Chloride 108 H, Carbon Dioxide 29.0, Anion Gap 5, BUN 18, Creatinine 0.99, Estim Creat Clear Calc 79.47, Est GFR (MDRD) Af Amer 97, Est GFR (MDRD) Non-Af 80, BUN/Creatinine Ratio 18.1, Glucose 109 H, Calcium 9.3, Troponin I High Sens 285 H* 06/03/22 02:47: PT 13.2, INR 1.0, APTT 32.0 06/03/22 02:47: Troponin I High Sens 278 H* 06/03/22 06:15: Troponin I High Sens 260 H* Cardiology Labs/Tests 06/03/22 00:47: WBC 5.9, RBC 4.08 L, Hgb 13.0, Hct 38.6 L, MCV 94.6 H, MCH 31.9, MCHC 33.7, Plt Count 162, MPV 9.1, Immature Gran % (Auto) 0.200, Neut % (Auto) 50.8, Lymph % (Auto) 32.2, [place] % (Auto) 13.4 H, Eos % (Auto) 2.7, Baso % (Auto) 0.7, Absolute Neuts (auto) 3.0, Nucleated RBC % 0 06/03/22 00:47: Sodium 142, Potassium 3.8, Chloride 108 H, Carbon Dioxide 29.0, Anion Gap 5, BUN 18, Creatinine 0.99, Est GFR (MDRD) Af Amer 97, Est GFR (MDRD) Non-Af 80, BUN/Creatinine Ratio 18.1, Glucose 109 H, Calcium 9.3 06/03/22 02:47: PT 13.2, INR 1.0, APTT 32.0 Rhythm: EKG: ECHO: Stress Test: Cardiac Cath: PCI: CT Surgery: Holter monitor: EPS: PPM: CXR: Chest CT Scan: Radiography Diagnostic Testing: Radiology Impression Chest X-Ray 06/03/22 00:47 IMPRESSION: No acute cardiopulmonary abnormality. No change. Electronically Signed: Bimal Hinojosa MD at 1:14 EDT , Physical Exam Const alert, oriented x3, no apparent distress and healthy appearing HEENT normocephalic, head/scalp atraumatic, hearing grossly normal bilaterally, external ears normal, external nose normal and moist oral mucous membranes Eyes PERRL, EOMs intact bilaterally, conjunctivae normal and no scleral icterus Neck no lymphadenopathy, supple and no JVD Resp normal respiratory effort and clear to auscultation bilaterally Cardio regular rate, regular rhythm, S1 normal heart sound, S2 normal heart sound, no murmurs, no rub, no gallops, no clicks, no JVD and peripheral pulses 2+ throughout GI normal to inspection, nondistended, normoactive bowel sounds, soft to palpation, non-tender and non-distended Extremity normal to inspection, normal capillary refill, no clubbing, cyanosis or edema and no pedal edema Neuro oriented x3, CN's II-XII intact bilaterally, moves all extremities and no focal motor deficits Psych cooperative and affect normal Assessment & Plan Assessment/Plan (1) Acute non-ST elevation myocardial infarction (NSTEMI): PLAN: Patient had non-ST elevation myocardial infarction and underwent a cardiac catheterization which demonstrated the following: Normal left main coronary artery. Left anterior descending artery which was previously stented with a patent stent in the mid 50% stenosis. First diagonal vessel with 75% stenosis. Left circumflex artery with high-grade 95% proximal stenosis Right coronary artery with totally occluded distal posterior descending artery with [id number] collaterals. Preserved left ventricular systolic function. Based on the above angiographic findings I would recommend PCI of the likely culprit lesion which is the circumflex artery. (2) History of coronary artery stent placement: PLAN: Patient is status post multivessel stenting as noted above (3) Essential (primary) hypertension: PLAN: Patient with a history of hypertension we will continue with current medical therapy (4) Hyperlipidemia: QUALIFIERS: Hyperlipidemia type: unspecified Qualified Code(s): E78.5 - Hyperlipidemia, unspecified PLAN: We will continue with aggressive risk factor modification.
--- NOTE | 2022-06-03 10:04 | CL.D_ITS ---
Patient Name: ANN-MARIE REED Study Date: 06/03/2022 Performing: Prasanna Whittington MD Ht: 72 inches 182.88 cm : 1955 Wt: 250.3 lbs 113.4 kg Age: 67 Gender: male BSA: 2.34 PROCEDURE(S) PERFORMED DC01-([id number])LHC/COR/LV CLINICAL PROFILE AND INDICATIONS Indications: Suspected CAD Heart Failure: None Stress/Imaging Stress/Image Study Performed: No CAD Presentations: Unstable angina. CONCLUSIONS Coronary artery disease with previously placed stent noted in the proximal to mid LAD patent, the fir st obtuse marginal branch patent and the proximal posterior descending artery is patent. High-grade stenosis noted in the proximal circumflex artery and the distal PDA is totally occluded wi th [id number] collaterals and moderate disease noted in the diagonal vessel. RECOMMENDATIONS Would recommend PCI to the proximal circumflex artery. The rest of the vessels can be treated medica lly. DESCRIPTION OF PROCEDURE The patient arrived to the procedure lab. The risks and benefits of the procedure as well as a full d escription of our services here and current unavailability of surgical backup were fully explained to the patient and/or their significant other prior to the catheterization. The Timeout was completed, verifying the correct patient and procedure. The patient's procedural site was prepped and draped in the usual fashion. Local anesthetic was given subcutaneously to right radial region with Lidocaine 2% . Using a modified Seldinger technique, arterial access was obtained via the right radial artery, a 6 Fr sheath was inserted. Right Coronary Artery selective angiography was then performed in multiple v iews using a 5 Fr. 4.0 Wilmot catheter. Left Coronary Artery selective angiography was performed in mu ltiple views using a 5 Fr. 4.0 Wilmot catheter. Left Ventriculography was performed in [place]UM[place] projection using a 5 Fr. Pigtail catheter. LV to AO pullback pressures were then recorded. CORONARY ANGIOGRAPHY DOMINANCE: Right Dominant LEFT HEART ASSESSMENT Left Ventricular Ejection Fraction: by LV Gram 55 % Normal LV wall motion Normal Left Ventricular systolic function LEFT MAIN: Angiographically normal LEFT ANTERIOR DESCENDING ARTERY: MID LAD: Previously placed stent is patent DIAGONAL 1: Proximal - Diffusely diseased up to 75 % CIRCUMFLEX ARTERY: PROX CIRC: 95 % Stenosis OM 1: Proximal - Mild luminal irregularities OM 2: Proximal - Previously placed stent is patent RIGHT CORONARY ARTERY: Mild luminal irregularities RT PDA: Mid - Previously placed stent is patent, Distal - is occluded COLLATERAL FLOW: Collateral flow from Left to Right COMPLICATIONS PROCEDURE MEDICATIONS Fentanyl 50 mcg IV Versed 1 mg IV Oxygen: 2 L/min via nasal cannula Heparin given IA 06/03/2022 09:40:39 Verapamil 2.5mg, Ntg 100mcgs, 3000 units of Heparin given IA 06/03/2022 09:40:39 SUMMARY OF HEMODYNAMIC DATA Time AIR REST ECG 09:23:32 ECG 09:23:43 Art 188/59 (98) 09:35:43 AO 139/64 (94) SA 09:41:33 LV 125/10, 32 09:51:43 LV 117/11, 48 09:51:52 LV 134/14, 21 09:52:35 LVp 118/13, 25 09:52:45 AOp 145/66 (100) 09:52:52 Signed By Prasanna Whittington MD On 06/03/2022 10:04:04 AM Prasanna Whittington MD
--- NOTE | 2022-06-03 11:36 | PCIREPORT_ITS ---
PCI Cardiac Cath Report PCI Report: 1. Successful PCI of the proximal circumflex artery 95%, with predilatation, using 2.5 x 15 mm balloon, followed by placement of drug-eluting stent 3 x 16 mm Synergy MR And achievement of excellent result with reduction of stenosis to 0% and maintenance of pre and post ASHOK-3 flow 2. Successful placement of TR band to right radial artery arteriotomy site Consent; Risk and benefit of procedure explained in detail Patient elected to proceed and informed consent obtained Preprocedure diagnosis; 67-year-old patient who presented with symptoms of chest pain, underwent cardiac catheterization by his primary major donor coordinator Dr. Whittington Angiographic films reviewed Left ventricular ejection fraction within normal around 55% Left main normal angiographically, bifurcating into LAD and the left circumflex Left anterior descending artery mid LAD previously placed stent is patent Diagonal branch proximal diffuse disease noted Around 75% Circumflex artery proximal circumflex 95% stenosis, OM1 proximally had mild luminal irregularity and OM 2 had previously placed stent is patent Right coronary artery mild proximal luminal irregularity right PDA mid previously placed stent is patent distal is occluded collateral flow from the left to the right is noted Based on the clinical presentation patient presented with symptoms of chest pain as also mild elevation of high-sensitivity troponin with a clinical diagnosis of non-ST elevation myocardial infarction. We will proceed with a PCI of the culprit in this case which is a high-grade stenosis of the proximal circumflex artery Medication used in the [facility]; And #1 patient currently on Plavix will give him additional 225 mg of Plavix in the [facility] Patient was given aspirin Heparin IV ACT level acceptable 271 Intervention equipment used and plan; 1. 6 Luxembourgish 3.5 EBU guide catheter 2. 0.014 BMW universal straight 190 cm guidewire 3. 0.014 run-through extra floppy 180 cm straight wire 4. 0.035 to 60 cm J exchange wire 5. 2.5 x 50 mm emerge MR balloon 6. Drug-eluting stent Synergy MR 3 x 16 mm Procedure in detail; Under fluoroscopic guidance we proceed with 6 Luxembourgish EBU guide catheter advanced to ascending aorta cannulated the The left main without difficulty, angiographic films obtained in steep ROLANDO caudal view, using 2 wires which is a BMW universal straight guidewire and the run-through guidewire across the lesion in the proximal circumflex as well as in the OM1 branch Then we proceed with predilatation of the 2 lesions using 2.5 mm balloon, followed by placement of drug-eluting stent 3 x 16 mm Synergy MR stent and achieved an excellent result Following this all catheter removed, No immediate complication in the [facility] Conclusion recommendations; 1. Successful percutaneous core intervention of high-grade 95% proximal left circumflex artery stenosis with predilatation followed by placement of drug- eluting stent as a specified 2. Patient to continue on DAPT with Plavix and aspirin for 1 year 3. Patient is scheduled for cardiac rehab program 4. Patient to follow-up with the primary major donor coordinator Dr. Whittington No immediate complication the [facility] Adán Francisco MD,FACC,[facility] [place]
--- NOTE | 2022-06-03 11:41 | CRPHASE1_ITS ---
Patient Communication Former Patient:: Phase II PHII Cardiac Rehab Discussed with Patient:: Yes Guide to Cardiac Rehab Given to Patient:: Yes Cardiac Rehab Facility Choice List Given to Patient:: Yes Choice Program [facility] CR PHII:: Communication Given to CR Sole Assessor:: Adán Francisco Refer Phase II Cardiac Rehab:: Yes Sessions:: 36 sessions - 3 days/wk, 12 weeks Cardiac Rehabilitation Info Cardiac Rehabilitation Program Information: Cardiac Rehabilitation is important for patients like you who are recovering from a heart problem. Cardiac rehabilitation programs are recognized as integral to the continued care of the patient with coronary heart disease. The cardiac rehabilitation program is designed to optimize a patient's physical, psychological, and social functioning. Health manager home healthcare work in cardiac rehabilitation programs and assist you with getting the treatments you need to get stronger and healthier - like exercise, healthy eating habits, and medications. Cardiac rehabilitation has been show to help people with heart problems live longer and have better life enjoyment than people who do not go to cardiac rehabilitation. Please contact the Cardiac Rehabilitation Program at [facility] at in two weeks if you have not heard from them.
--- NOTE | 2022-06-03 11:41 | CRPH1.INST_ITS ---
General Education CAD and cardiac anatomy and function:: Patient communicates acknowledgment, Needs reinforcement Explanation of diagnoses and procedures:: Patient communicates acknowledgment, Needs reinforcement Sign/Symptoms of MT:: Patient communicates acknowledgment, Needs reinforcement Antiplatelet therapy: Patient communicates acknowledgment, Needs reinforcement Proper use of NTG-SL: Patient communicates acknowledgment, Needs reinforcement Emergency procedures and activation of EMS: Patient communicates acknowledgment, Needs reinforcement Compliance of all prescribed medications: Patient communicates acknowledgment, Needs reinforcement Smoking Patient Nicotine/Smoking Risk Factors Are:: Non-smoker Dyslipidemia Patient Dyslipidemia Risk Factors Are:: Total Cholesterol, Triglycerides, HDL, LDL Recommendations Include:: Lipid profile not available Dyslipidemia Response Code:: Patient communicates acknowledgment, Needs reinforcement Overweight/Obesity Patient Overweight/Obesity Risk Factors Are:: Obesity - > or = 30 Recommendations Include:: Weight loss of 5-10%, Reduced calorie diet, Exercise 5-7 times/week Overweight/Obesity:: Patient communicates acknowledgment, Needs reinforcement Hypertension Recommendations Include:: Maintain BP <130/85, DASH dietary guidelines, Decrease/maintain normal body weight Hypertension:: Patient communicates acknowledgment, Needs reinforcement Heart Disease Patient Heart Disease Risk Factors Are:: Previous cardiac event Recommendations Include:: Educated family members of their risk Heart Disease Response Code:: Patient communicates acknowledgment, Needs reinfor cement Sedentary Patient Sedentary Risk Factors Are:: Lack of regular exercise Recommendations Include:: Aerobic exercise 5-7 times/week for 20-30 minutes continuously, Benefits of regular exercise, Discussed home walking program, Monitored Outpatient Cardiac Rehab Sedentary Response Code:: Patient communicates acknowledgment, Needs reinforcement
[2022-06-03] MEDS: 0.9% Normal Saline 1,000 ML 75 ML IV (11:49)
--- NOTE | 2022-06-03 13:32 | CASEMGMT ---
Pt provided a Brilinta one month free card for discharge. Art LOPEZ CM
--- NOTE | 2022-06-03 15:17 | PCM.HOSP.N ---
Hospitalist Note Patient was seen and examined briefly today, he was admitted for non-STEMI and underwent a cardiac catheterization today with an intervention and placement of a DEVIN in the circumflex artery. Patient remained stable at this time, he has no complaints of any shortness of breath or chest pain. Patient will remain on his present medications with adjustments as needed by cardiology. I have however increased the patient's Lipitor to 40 mg daily.
[2022-06-03] MEDS: Atorvastatin Calcium 40 MG Tablet PO (20:56)
[2022-06-04] VITALS (7 sets, daily range): BP systolic 139–149; BP diastolic 63–66; PULSE 58–95; RESP 16–18; TEMP 36.6–36.7; O2SAT 95–96
[2022-06-04 07:12] LABS: Absolute Lymphocyte Count 1.27 X10^3/uL (0.83-4.51); Absolute Neutrophil Count 3.6 X10^3/uL (2.0-7.7); Basophil# 0.04 X10^3/uL; Basophil% 0.7 % (0-1); Eosinophil# 0.19 X10^3/uL; Eosinophils% 3.3 % (0-5); Hematocrit 40.7 % (40-54); Hemoglobin 13.9 g/dL (13.0-16.5); Lymphocyte # 1.27 X10^3/ul (0.83-4.51); Lymphocyte % 22.2 % (19-41); Mean Corp Hgb Conc 34.2 g/dL (32-36); Mean Corpuscular Volume 93.8 fL (80-94); Mean Platelet Vol. 9.4 fl (6.2-12.0); Monocyte# 0.65 X10^3/uL; Monocyte% 11.4 % (0-10); NRBC Flagged by Analyzer 0 % (0-5); Neutrophil # 3.55 X10^3/uL (2.7-7.7); Neutrophil % 62.2 % (47-70); Platelet Count 155 K/mm3 (150-450); RBC Distribution Width CV 12.5 % (11.6-14.6); RBC Distribution Width SD 43.5 fl (35.1-43.9); Red Blood Count 4.34 M/mm3 (4.6-6.2); White Blood Count 5.7 K/mm3 (4.4-11.0)
[2022-06-04 07:39] LABS: ALB/GLOB Ratio 0.9 RATIO (0.9-2.4); AST(SGOT) 26 U/L (15-37); Alanine Aminotransfer ALT/SGPT 31 U/L (16-61); Albumin, Serum 3.3 g/dL (3.2-5.0); Alkaline Phosphatase 70 U/L (45-117); Anion Gap 5 (5-15); BUN 14 mg/dL (7-18); BUN/Creat Ratio 16.1 RATIO (10-20); Calcium,Total 8.5 mg/dL (8.5-10.1); Chloride 110 mmol/L (98-107); Creatinine, Serum 0.87 mg/dL (0.70-1.30); EST Glomerular Filtration Rate 93 mL/min (>60); Est Glom Filt Rate - Afr Amer 112 mL/min (>60); Estimated Creatinine Clearance 90.43 ml/min; Globulin 3.7 g/dL (2.2-4.2); Glucose 93 mg/dL (74-106); Sodium Level 140 mmol/L (136-145)
[2022-06-04] MEDS: Aspirin E.C. 81 MG Tablet PO (09:14)
[2022-06-04] MEDS: Lisinopril 10 MG Tablet PO (09:15)
[2022-06-04] MEDS: Clopidogrel Bisulfate 75 MG Tablet PO (09:15)
[2022-06-04] MEDS: Metoprolol(XL)Succ 50 MG Tablet PO (09:15)
[2022-06-04] MEDS: 0.9% Saline Lock 10 ML Syringe IV (09:17)
--- NOTE | 2022-06-04 10:00 | EKG12_ITS ---
Test Reason : AM EKG Blood Pressure : / mmHG Vent. Rate : 062 BPM Atrial Rate : 062 BPM P-R Int : 162 ms QRS Dur : 094 ms QT Int : 414 ms P-R-T Axes : 042 009 040 degrees QTc Int : 420 ms Normal sinus rhythm Nonspecific ST abnormality Abnormal ECG Confirmed by EDEN REMY, GANESH ([id number]), newspaper editor managing ILEANA MIRELES ([id number]) on 06/07/2022 1:02:52 PM Referred By: LORY Confirmed By:GANESH HARMON MD
--- NOTE | 2022-06-04 11:23 | PCM.DC.SUM ---
Providers Date of Admission: 06/03/22 Date of Discharge: 06/04/22 Primary Care Physician: Dr. Moshe Lehman MD Consultations 06/03/22 03:15 Consult: Cardiology Routine Consulting Provider: Adán Francisco Reason for Consult: NSTEMI EMERGENT Consult: No MD Notified: Yes Date Notified: 06/03/22 Time Notified: 02:36 Method of Notification: ED Physician Initiated Reason For Visit: NSTEMI Diagnosis Discharge Diagnosis (1) Acute non-ST elevation myocardial infarction (NSTEMI): Status: Acute Code(s): I21.4 - Non-ST elevation (NSTEMI) myocardial infarction (2) Essential (primary) hypertension: Status: Chronic Code(s): I10 - Essential (primary) hypertension (3) Hyperlipidemia: Status: Chronic Code(s): E78.5 - Hyperlipidemia, unspecified Qualifiers: Hyperlipidemia type: unspecified Qualified Code(s): E78.5 - Hyperlipidemia, unspecified Medications at Discharge Home Medications aspirin 81 mg tablet,delayed release 81 mg PO DAILY [facility] 02/13/19 lisinopril 10 mg tablet 10 mg PO DAILY #90 tabs 11/24/21 metoprolol succinate 50 mg tablet,extended release 24 hr 50 mg PO DAILY #90 tabs 11/24/21 clopidogrel 75 mg tablet (Plavix) 75 mg PO DAILY anti platelet 06/03/22 atorvastatin 10 mg tablet 10 mg PO DAILY #30 tabs 06/04/22 Hospital Course Procedures Cardiac catheterization and EKG Summary of Care Provided Minutes Spent on Discharge: 36 Hospital Course: Mr. Peck is a 67-year-old white male who presented to emergency department [facility] on 06/03/2022 complaining of chest pain. Patient had a noted history of coronary artery disease and was status post PCI with 3 stents in 2019. He reported that the pain was substernal and had been episodic for approximately 1 week. He had been experiencing it approximately 2 times daily for about 15 minutes. On the evening before presentation he had chest pain on the left and woke up with chest pain and this lasted approximately 30 minutes. He took a nitroglycerin at that time and it went away in less than 5 minutes he therefore decided to present to emergency department. He denied any nausea, vomiting, shortness of breath, or diaphoresis with his chest pain. He noted that it also radiated to the back of his neck. His EKG on admission showed subtle ST depression in the inferior lateral leads compared to previous and his initial troponin was 285. He was given a full dose aspirin the emergency department and continued on his home baby aspirin and Plavix. He was evaluated by cardiology in the morning and was taken for cardiac catheterization on 06/03/2022 at which time he was found to have a 95% lesion of the proximal circumflex. PCI with DEVIN was performed and it was recommended that he continue his dual antiplatelet therapy with aspirin and Plavix for 1 year as well as be maintained on his other medications. He was maintained on his atorvastatin 10 mg as he gets significant and severe myalgias with doses higher than that. He was evaluated and scheduled for cardiac rehab. He was monitored on telemetry after his PCI and had no significant events. He remained asymptomatic and was stable to be discharged home on 06/04/2022. He is to follow-up with his primary care provider in the next month. An appointment already has been scheduled with the physician insurance sales assistant for welder journeyman office on 06/24/2022 at 1 PM. Discharge diagnoses: NSTEMI CAD neck hyperlipidemia Hypertension History of nephrolithiasis History of GERD Obesity Physical Exam Narrative No issues overnight. No chest pain or shortness of breath. Patient states he is feeling much better. Const alert, oriented x3, no apparent distress, no limitations and well nourished Constitutional Narrative: Please, older white male sitting up in bed, at bedside, patient appears comfortable nontoxic General Appearance: cooperative, comfortable, well kempt and well developed Orientation / Consciousness: awake, oriented to person, oriented to place and oriented to time Exam Limitations: no limitations Nutritional Appearance: obese HEENT normocephalic, head/scalp atraumatic and moist oral mucous membranes Eyes PERRL, EOMs intact bilaterally and conjunctivae normal Eyes Narrative: No scleral icterus Neck no lymphadenopathy, supple and no JVD Resp normal respiratory effort, no retractions, no use of accessory muscles and clear to auscultation bilaterally Resp Narrative: Diminished but clear Auscultation: Negative for crackles, rales, rhonchi or wheezes Cardio regular rate, regular rhythm, S1 normal heart sound, S2 normal heart sound, no murmurs, no rub, no gallops, no clicks and no JVD GI normal to inspection, nondistended, normoactive bowel sounds, soft to palpation, non-tender and non-distended Extremity normal to inspection and no clubbing, cyanosis or edema Skin no rashes or lesions noted, no wounds, skin turgor normal and no jaundice Skin Narrative: Right radial cath site-nontender, clean, dry without significant ecchymosis present Neuro oriented x3, CN's II-XII intact bilaterally, moves all extremities, no focal motor deficits and No no sensory deficits noted Sensorium / Orientation: awake, alert, oriented to person, oriented to place and oriented to time Speech: speech normal Psych affect normal Psych Narrative: Very pleasant and appropriately interactive Weight / BMI Weight Weight: 113.3 kg Body Mass Index (BMI) 34.4 ABG / Lab / Microbiology Data Result Diagrams: 06/04/22 06:46 06/04/22 06:46 Laboratory: Laboratory Results - last 24 hr 06/04/22 06:46: WBC 5.7, RBC 4.34 L, Hgb 13.9, Hct 40.7, MCV 93.8, MCH 32.0, MCHC 34.2, RDW Std Deviation 43.5, RDW Coeff of Mark 12.5, Plt Count 155, MPV 9.4, Immature Gran % (Auto) 0.200, Neut % (Auto) 62.2, Lymph % (Auto) 22.2, [place] % (Auto) 11.4 H, Eos % (Auto) 3.3, Baso % (Auto) 0.7, Absolute Neuts (auto) 3.6, Absolute Lymphs (auto) 1.27, Nucleated RBC % 0 06/04/22 06:46: Sodium 140, Potassium 4.0, Chloride 110 H, Carbon Dioxide 25.0, Anion Gap 5, BUN 14, Creatinine 0.87, Estim Creat Clear Calc 90.43, Est GFR (MDRD) Af Amer 112, Est GFR (MDRD) Non-Af 93, BUN/Creatinine Ratio 16.1, Glucose 93, Calcium 8.5, Total Bilirubin 1.50 H, AST 26, ALT 31, Alkaline Phosphatase 70, Total Protein 7.0, Albumin 3.3, Globulin 3.7, Albumin/Globulin Ratio 0.9 D/C Instructions Discharge Diet: Low fat / Low cholesterol Discharge Activity: Return to Normal Activity (after 06/08-limit R arm lifting to < 10 lbs for 4 more days) Meaningful Use Info Meaningful Use Diagnoses (Choose all that apply): None applicable Discharge Plan Admission Admit Date/Time: 06/03/22 02:29 Primary Reason for Your Visit: Chest pain Attending Provider: Leda Graff Primary Care Provider: Moshe Lehman Consulting Providers: Adán Francisco ; Dino Aguilar ; Antonio Booker Discharge Orders/Prescriptions Prescriptions: New atorvastatin 10 mg tablet 10 mg PO DAILY Qty: 30 0RF Continued aspirin 81 mg tablet,delayed release (DR/EC) 81 mg PO DAILY metoprolol succinate 50 mg tablet extended release 24 hr 50 mg PO DAILY Qty: 90 3RF lisinopril 10 mg tablet 10 mg PO DAILY Qty: 90 3RF clopidogrel [Plavix] 75 mg tablet 75 mg PO DAILY Discontinued atorvastatin 10 mg tablet 10 mg PO QHS Qty: 90 3RF Referrals / Follow Up: Moshe Lehman MD [Primary Care Provider] - Within 1 Month Cassy Burgess PA [Med Staff - [facility] Practice Prof] - 06/24/22 1:00 pm Disposition Disposition (needs filled in before D/C Order can be placed): Home, Self Care Charges/Coding Visit Charges Inpatient E&M: 34122 Disch Hosp
--- NOTE | 2022-06-04 13:08 | PN.CARD_ITS ---
Subjective Subjective Seen evaluated today at bedside along with the nursing staff at bedside No symptoms of chest pain reported Review of the stockbroking dealer showed underlying normal sinus. Objective Data Cardiac exam essentially normal S1-S2 regular Chest exam is clear to auscultation Vital Signs: Vital Signs Temp Pulse Resp BP Pulse Ox O2 Del Method 98.0 F 81 16 139/66 H 96 Room Air 06/04/22 07:48 06/04/22 11:00 06/04/22 07:48 06/04/22 09:15 06/04/22 07:48 06/04/22 09:04 Oxygen Delivery Method Room Air Weight: 249 lb 12.54 oz Body Mass Index (BMI) 34.4 Intake & Output: Intake and Output for Last 24 Hours 06/02/22 06/03/22 06/04/22 23:59 23:59 23:59 Intake Total 805.5 / 805.5 1000 / 1000 Balance 805.5 / 805.5 1000 / 1000 Lab / Micro Data Result Diagrams: 06/04/22 06:46 06/04/22 06:46 Labs: Laboratory Results - last 24 hr 06/04/22 06:46: WBC 5.7, RBC 4.34 L, Hgb 13.9, Hct 40.7, MCV 93.8, MCH 32.0, MC HC 34.2, RDW Std Deviation 43.5, RDW Coeff of Mark 12.5, Plt Count 155, MPV 9.4, Immature Gran % (Auto) 0.200, Neut % (Auto) 62.2, Lymph % (Auto) 22.2, [place] % (Auto) 11.4 H, Eos % (Auto) 3.3, Baso % (Auto) 0.7, Absolute Neuts (auto) 3.6, Absolute Lymphs (auto) 1.27, Nucleated RBC % 0 06/04/22 06:46: Sodium 140, Potassium 4.0, Chloride 110 H, Carbon Dioxide 25.0, Anion Gap 5, BUN 14, Creatinine 0.87, Estim Creat Clear Calc 90.43, Est GFR (MDRD) Af Amer 112, Est GFR (MDRD) Non-Af 93, BUN/Creatinine Ratio 16.1, Glucose 93, Calcium 8.5, Total Bilirubin 1.50 H, AST 26, ALT 31, Alkaline Phosphatase 70, Total Protein 7.0, Albumin 3.3, Globulin 3.7, Albumin/Globulin Ratio 0.9 Cardiology Labs/Tests 06/04/22 06:46: WBC 5.7, RBC 4.34 L, Hgb 13.9, Hct 40.7, MCV 93.8, MCH 32.0, MCHC 34.2, Plt Count 155, MPV 9.4, Immature Gran % (Auto) 0.200, Neut % (Auto) 62.2, Lymph % (Auto) 22.2, [place] % (Auto) 11.4 H, Eos % (Auto) 3.3, Baso % (Auto) 0.7, Absolute Neuts (auto) 3.6, Nucleated RBC % 0 06/04/22 06:46: Sodium 140, Potassium 4.0, Chloride 110 H, Carbon Dioxide 25.0, Anion Gap 5, BUN 14, Creatinine 0.87, Est GFR (MDRD) Af Amer 112, Est GFR (MDRD) Non-Af 93, BUN/Creatinine Ratio 16.1, Glucose 93, Calcium 8.5, Total Bilirubin 1.50 H Rhythm: EKG: ECHO: Stress Test: Cardiac Cath: PCI: CT Surgery: Holter monitor: EPS: PPM: CXR: Chest CT Scan: Assessment & Plan Assessment/Plan (1) Acute non-ST elevation myocardial infarction (NSTEMI): (2) Essential (primary) hypertension: (3) Hyperlipidemia: QUALIFIERS: Hyperlipidemia type: unspecified Qualified Code(s): E78.5 - Hyperlipidemia, unspecified (4) Atherosclerotic heart disease of [place] coronary artery without angina pectoris: (5) History of coronary artery stent placement: PLAN: Plan Cardiac care plan recommendation: 67-year-old patient extensive cardiac history Had cardiac catheterization by his primary juke box servicer Dr. Whittington Has a patency of the LAD stent as well as RCA stent Has a high-grade stenosis involving the proximal circumflex artery Underwent successful PCI using drug-eluting stent LV function is preserved Recommendation; 1. Patient to continue on DAPT therapy 2. We will continue current cardiac medication 3. Patient scheduled for cardiac rehab program 4. Patient to follow-up with his primary juke box servicer Dr. Whittington for continuation of cardiac care Cardiac care plan recommendation discussed in detail with the patient, family, as well as the nursing staff today at bedside.
== END 2022-06-04 11:27 | disposition home or self-care (01) ==
LOC: ED 02:43 → PCU 02:50
PROVIDERS: Admitting Provider Hospitalist; Emergency Provider Student in an Organized Health Care Education/Training Program; PCP Family Medicine; Visit Provider Internal Medicine
DX: I21.4 Non-ST elevation (NSTEMI) myocardial infarction (principal); I25.110 Atherosclerotic heart disease of native coronary artery with unstable angina pectoris; E66.9 Obesity, unspecified; Z87.891 Personal history of nicotine dependence; I10 Essential (primary) hypertension; Z79.82 Long term (current) use of aspirin; E78.5 Hyperlipidemia, unspecified; Z79.02 Long term (current) use of antithrombotics/antiplatelets; Z79.899 Other long term (current) drug therapy; Z68.34 Body mass index [BMI] 34.0-34.9, adult; I25.2 Old myocardial infarction; Z95.5 Presence of coronary angioplasty implant and graft; K21.9 Gastro-esophageal reflux disease without esophagitis
CPT/HCPCS: 36415; 71045; 80048; 80053; 84484; 85025; 85610; 85730; 92928; 93005; 93458; 96361; 96365; 96366; 99152; 99153; 99218; 99285; J7030; Q9957; Q9967; A4216; C1725; C1769; C1874; C1887; C1894; C9600; G0378

== ENCOUNTER → 2022-06-10 | Outpatient (CLI) | payer MEDICARE, OTHER, SELFPAY ==
[2019-01-07 13:45] VITALS: BMI 35.9
--- NOTE | 2022-06-10 10:35 | PCM.CR.HP2 ---
CR - History & Physical - General Arrival date:: 06/10/22 Arrival time:: 10:35 Date of Referral:: 06/03/22 Date of CR Evaluation:: 06/10/22 Referring Physician: Dr. Prasanna Whittington Primary Diagnosis: PCI with Stent - History of Present Cardiac Event Onset Date: Enter Onset Date of cardiac illnesses in Comment field below PTCA or coronary stenting:: Yes Vessel: prox OM 2 and prox LAD - Sleep Disorder Evaluation Hx of Sleep Apnea: No Do you snore loudly (louder than talking or can be heard through closed doors)?: Yes Do you often feel tired/ fatigued/ sleepy during daytime?: No Has anyone observed you stop breathing during sleep?: No History of Hypertension (for STOP score): Yes STOP Results: Positive - Medications Home Medications: Ambulatory Orders Medication Instructions Recorded aspirin 81 mg tablet,delayed 81 mg PO DAILY [facility] 02/13/19 release lisinopril 10 mg tablet 10 mg PO DAILY #90 tabs 11/24/21 metoprolol succinate 50 mg 50 mg PO DAILY #90 tabs 11/24/21 tablet,extended release 24 hr clopidogrel 75 mg tablet (Plavix) 75 mg PO DAILY anti platelet 06/03/22 atorvastatin 10 mg tablet 10 mg PO DAILY #30 tabs 06/04/22 - Allergies Allergies/Adverse Reactions: Allergies No Known Allergies Allergy (Verified 11/24/21 08:39) Advanced Directives - Advanced Directives Power of Orthopedic Technician: No Living Will: No Advance Directives Information Provided: No Advance Directives on File: No DNR Order?:: No Past Medical History - Covid-19 Screening Fever: No Unexplained muscle aches: No Current respiratory symptoms: No Upper respiratory infections symptoms: No Gastro-intestinal symptoms: No Txx-Nafu-[id number] symptoms: No Has tested positive for COVID-19 in last 30 days: No Had contact w/person w/symptoms or Covid-19 (+) last 14 days: No Has High Risk Exposures ID'd by Health dept/Inf Control team: No 65 years or older:: Yes Lives in Assisted Living facility:: No Has a chronic lung disease or moderate to severe asthma:: No Has a serious heart condition:: Yes Immunocompromised:: No Severely obese (Body Mass Index of 40 or higher):: No Diabetic:: No Has chronic kidney disease undergoing dialysis:: No Has liver disease:: No - Past Medical Illness Medical History: Past Medical History (Last Updated 06/03/22 @ 16:53 by Galilea Lopez) ACS (acute coronary syndrome) I24.9 Atherosclerotic heart disease of [place] coronary artery without angina pectoris I25.10 Essential (primary) hypertension I10 GERD (gastroesophageal reflux disease) K21.9 History of non-ST elevation myocardial infarction (NSTEMI) Onset Date: 01/06/19 I25.2 Hyperlipidemia E78.5 Kidney stones N20.0 Obesity E66.9 - Past Surgical History Surgical History: Past Surgical History (Last Updated 06/03/22 @ 16:53 by Galilea Lopez) History of coronary artery stent placement Onset Date: 06/03/22 Z95.5 [id number] w/ 2.25 x 16 mm Synergy Stent 01/07/19; ZEP-DUY-Rtse OM2 w/ 2.5 x 16 mm Synergy Stent and DEVIN-Prox LAD w/ 3.5 x 16 mm Synergy Stent 01/15/19; DVP-APO-Lacy LCx w/ 3 x 16 mm Synergy MR Stent 06/03/2022 Surgical History: - - Surgery and left ankle. - Family History Summary Family History: Family History (Last Reviewed 06/03/22 @ 09:25 by Cassy TURNER, PA) Other Heart disease Social History - Smoking History Smoking Status: Former smoker - quit over 40 years ago - Alcohol Use Alcohol Usage: Yes - 2-3x a week - Occupation Occupation (List type of work in comments):: Retired - Hobbies, Recreation, Social Activities Hobbies: Woodworking Recreational Activities: I am able to engage in all my recreational activities Social Environment - Status Marital Status: - Current Living Arrangements Living Environment:: Spouse - Children How many children do you have?: 2 Do any of your children live nearby?: Yes - Safety Do you feel safe in your surroundings?: Yes - Assistance Do you need any assistance at home?: no Review of Systems - Review of Systems Hints: Right click = Denies ([place]). Left click = Reports ([place]) Review of Present Symptoms: Reports: Shortness of Breath with Exertion, Dizziness/Lightheadedness, Appetite - Normal, Appetite - Special Diet, Sleep - Normal. Denies: Shortness of Breath at Rest, PVD, Operative Discomfort, Angina, Wound Healing, Fatigue, Heart Arrhythmia/Irregularities, Sexual Changes - Pain Is Patient Pain Free?: Yes Risk Factor Assessment - Vital Signs Pulse Ox: 99 Blood Pressure: 130/70 - Pulse Pulse Rate: 65 Pulse Rhythm: Regular - Obesity Height: 6 ft Weight:: 112.945 kg Weight in Pounds: 249.0 lbs Body Mass Index (BMI): 33.7 Nutritional Referral for Obesity: No - Physical Inactivity Physical Inactivity: Reg Exercise 30 min/day - Risk Stratification Risk Guidelines: Moderate Risk: Risk Factor for Smoking, Risk Factor for Dyslipidemia, Risk Factor for Diabetes, Risk Factor for Obesity, Risk Factor for Hypertension, Risk Factor for Sedentary Lifestyle, Risk Factor for Depression - Family History Family History: Family History (Last Reviewed 06/03/22 @ 09:25 by Cassy Burgess PA, PA) Other Heart disease Motivation - Motivation to Participate On a scale of 1 to 10, how prepared are you to commit to attending program?: 8 What do you see as barriers to successfully being able to complete the program?: nothing What do you see as the benefits of succesfully completing the program? In other words, what do you hope to get out of participating in the program?: improved health Are there issues you are dealing with that will interfere with completing the program?: no Do you have a spouse or signficant other, family or friends who will help support you to complete the program?: yes
[2022-06-10 11:10] VITALS: BP 130/70; PULSE 65; O2SAT 99; BMI 33.7
--- NOTE | 2022-06-10 11:11 | PCM.CR.ITP ---
<Jasper Johnson - Last Filed: 06/10/22 11:11> Diagnosis - General Information Admitting Diagnosis: PCI with stent Personal Learning Style:: Audio/Visual Stage of change r/t lifestyle modifications:: Contemplation Gave educational material for:: Treating Heart Disease, Emotions & Heart Disease, Stress Management & Relaxation, Sleep Disorders & Heart Disease, How The Heart Works, What it means to have Heart Disease, How Coronary Artery Disease is Diagnosed, Heart Procedures, What Heart Medications Do, Risk Factors & Modifications, Living an Active Life, Nutrition - Education/Goals Cardiac Rehabilitation Goals: 1. Maintain the individual as the primary focus of care. 2. To improve the patient's quality of life. 3. Identification of cardiac risk factors and provide cardiac risk factor management. 4. Enhance the psychosocial status of the patient. 5. Reconditioning enough to allow the patient to resume customary activities. 6. Control symptoms of cardiac disease Personal Goals: Initial Assessment: Improve energy level, Improve muscle strength and endurance, Improve diet and eating habits (eat healthier), Control risk factors (learn risk factor modification) Scale for measuring improvement of personal goals: Enter appropriate number in Comments. 2 = Unchanged. 3 = Slightly Better. 4 = Moderate Improvement. 5 = Met my Goal - Diagnosis & Disease Process Outcomes/Goals: Pt IDs own risk factors & lifestyle modifications by Session 10, Verbalizes symptoms of angina & response by session 3., Pt independently manages, Other Additional Outcomes/Goals: Plan/Interventions: Assist Pt to ID & engage in lifestyle modification to reduce CVD risk, Instruct on individual risk factors, Review symptoms of angina & emergency actions, Review secondary diagnosis & identify educational needs., Other see comment 30 day Reassessments:: Not Met 30 day Reassessments:: Not Met 30 day Reassessments:: Not Met 30 day Reassessments:: Not Met Final Reassessments:: Not Met - Safety Referral to Physical Therapy: No Referral to [facility] Case Management: No Fall Risk Assessed:: Yes Assistive Devices:: None Exercise - Initial Assessment - Visit Date of Eval: 06/10/22 - initial eval Mets: Pre-: >3 METS for 30 minutes by discharge, >5 METS for 30 minutes by discharge, >7 METS for 30 minutes by discharge, Unable to meet goal due to: (see comment below) - Physician Prescribed Exercise Modalities: Treadmill, Rower, Airdyne, NuStep, SciFit, Lateral [place] Frequency: 3x/week for 12 weeks [36 sessions] Intensity: 60-80% of age predicted maximum heart rate reserve Current METSs:: 3 Target Heart Rate:: 99-130 Resting Blood Pressure: 130/70 - Outcomes & Goals Goals:: Verbalizes understanding of THR, RPE & goal METS by session 6, Documents in home exercise log/reports 30 min aerobic 5 day/wk by DC, Demonstrates accurate pulse taking by DC, Other additional outcome/goals: see below - Intervention & Plan Exercise Program Goals: Instruct on personal THR & RPE, Instruct on MET level & personal MET goal, Show patient to take own pulse /validate performance until accurate, Instruct on home exercise, Other additional plan/int - Physical Activity Home Exercise Physical Activity - Home Exercise: Safe Exercise, Warm-up, Self-monitoring, Cool-Down, Home Exercise > 30 min Daily, Sitting Time <3 hours/daily - Outcomes & Goals Outcomes/Goals: Demonstrates correct Warm-up/exercise Cool-Down (S3) if = 2.5 METs, Verbalizes symptoms of exercise intolerance by Session 3 (S3), Demonstrate safe equipment use (S3) & follows exercise prescrition (6), Other: See below - Intervention & Plan Plan/Intervention: Instruct warm-up & cool-down if exercising at > 2 METs, Instruct on symptoms of exercise intolerance & actions to take, Instruct & monitor on saf, Assess intial functional capacity & safety risk, Other See below Nutrition - Initial Assessment - Program Goals Nutrition Program Goals: LDL <100 optimal. 100 - 129 Near optimal. 130 - 159 Borderline High. 160 - 189 High. Total Cholesterol <200 desirable. 200 - 239 Borderline High. >/= 240 High. HDL < 40 Low >/=60 High. Triglycerides <150 desirable. <199 optimal. VlDL 5 - 40. HgbA1C <7%. BMI <25 Patient has diagnosis of Hyperlipidemia (ICD E78)?: Yes - Visit Date of Assessment:: 06/10/22 - initial eval - Cholesterol/Lipids (Other Core Measures) Determine presence & major risk factors that modify LDL goal: Cigarette smoking, Hypertension or hypertensive medication, Low HDL cholesterol <40 mg/dL*, Family history of premature CHD in Male < 55 years: female <65 yearsFa, Age men > 45 years; women >/= 55 years Outcomes/Goals: Pt IDs own risk factors & lifestyle modifications by Session 10, Verbalizes symptoms of angina & response by session 3., Pt independently manages, Other Additional Outcomes/Goals: Intervention/Plan: Advocate for lipid panel cholesterol medication if applicable, Instruct on personal lipid levels & lipid goals/NCEP guidelines, Instruct on cholesterol, Other additional plan/int Referral to dietitian:: No - Diabetes (Other Core Measures) Diabetes Type: Not Applicable - Weight Mgt (Other Care) Height: 6 ft Weight:: 249 lb BMI: 33.7 Diagnosis Overweight/Obesity BMI> 30% ICD-10 E66: Yes Diagnosis High BMI/Morbid Obesity BMI> 35% ICD-10 Z68: No Outcomes/Goals: Pt sets, maintains & shows weight loss goal & trend during rehab, Other additional outcomes/goals - Healthy Eating Habits Will attend diet classes:: No Outcomes/Goals:: Consume diet rich in vegs,fruits,whole grain/high fiber,fish,lean meat, Limit sat/trans fats,cholesterol & added salts & sugars, Other additional outcome/goals: Intervention/Plan:: Assess current eating habits, Other Additional plan/interventions - Education Gave educational materials for:: Signs & symptoms of hypoglycemia, Signs & symptoms of hyperglycemia, Relate diabetes to coronary artery disease, Healthy eating Core - Initial Assessment - Visit Date of Eval: 06/10/22 - inital eval - Medication Compliance Preventative Medication(s):: Aspirin, Clopidogrel/P2Y12 inhibit, Statin/lipid, Beta diamond H/O mental health issues: depression, anxiety, or addiction?: No Doesn?t believe in the benefits of treatment?: No Believes medications are unnecessary or harmful?: No Has a concern about medication side effects?: No Expresses concern over the cost of medications?: No Outcomes/Goals: Verbalizes medications,desired effect & common side effects @ DC, Pt self-reports following medication regimen, Keeps card in wallet w/medications listed by DC, Other additional outcome/goals: Interventions/plans: Instruct on medication effects & side effects, Review medication list w/patient every two weeks, Instruct importance of taking meds as ordered & assist problem solving, Other additional - Tobacco Use Tobacco Use: Cigarettes How long ago did you quit using tobacco products?: Greater than or equal to 6 months ago Do you use smokeless tobacco?: No - Hypertension Hypertension Diagnosis:: Hypertension ICD-10 I10 Resting Blood Pressure:: 130/70 [employer] Hypertension Guidelines: [employer] Hypertension Guidelines. Normal BP Less than 120/80. Elevated BP 120/80. Hypertension Stage 1: BP 130-139/80-89. Hypertesnion Stage 2: BP 140 or higher/90 or higher. Hypertension Crisis: BP higher than 180/120 Outcomes/Goals: Able to verbalize/achieve optimal blood pressure <130/80, Incorporates diet changes & exercise for blood pressure control by DC, Other additional outcomes/goals Interventions/plan: Instruct on optimal blood pressure, hypertension & medications, Instruct on effects of sodium, alcohol, stress, exercise &hypertension, Other additional plan/interventions - Tobacco Cessation Referral Smoking Cessation Referral:: No Individual Education/Counseling:: No Education Schedule Given:: Yes Psychosocial - Initial Assess - VIsit Date of Eval: 06/10/22 - initial eval History of previous Mental disease:: No - Target Goals Target Goals: Assess presence or absence of depression. Using a valid screening tool, maximizes coping skills. Positive support system - Psychosocial Test phq-9 Severity: Severity. 1-4 Minimal Depression. 5-9 Mild Depression. 10-14 Moderate Depression. 15-19 Moderately Sever Depression. 20-27 Severe Depression. Rule: - Outcomes/Goals: See list Psychosocial Outcomes/Goals:: ID's personal stressors & 2 strategies to manage stress by discharge, Other Additional outcome/goals: - Intervention/Plan: See List Interventions/Plan:: Assess stressors,coping strategies & signs of derpression on admission, Instruct/assist pt to develop coping & personal stress Mgt strategies, Refer to Behavioral Health if appropriate, Refer to Physician if appropriate, Instruct patient to recognize signs & symptoms of depression, Instruct patient to recog, Other additional plan/intervention Patient Health Questionnaire Initial Assessment 1. Little interest or pleasure in doing things: Not at all 2. Feeling down, depressed, or hopeless: Not at all 3. Trouble falling or staying asleep, or sleeping too much: Several days 4. Feeling tired or having little energy: Several days 5. Poor appetite or overeating: Not at all 6. Feeling bad about yourself -- or that you are a failure or have let yourself or your family down: Not at all 7. Trouble concentrating on things, such as reading the newspaper or watching television: Not at all 8. Moving or speaking so slowly that other people could have noticed. Or the opposite - being so fidgety or restless that you have been moving around a lot more than usual: Not at all 9. Thoughts that you would be better off , or of hurting yourself in some way: Not at all How difficult have these problems made it for you to do your work, take care of things at home, or get along with other people?: Not difficult at all Total Score: 2 LAY-Q SV Test - Statements CAD is a disease of the arteries in the heart: False Examples of risk factors for heart disease: True Angina is chest pain or discomfort: True The benefits of resistance training include: True Eating more meat and dairy products: False Anti-platelet medications such as aspirin are important: True The only effective way to manage stress: False An exercise warm-up slowly increases heart rate: I Don't Know Prepared, processed foods usually have high sodium: True Depression is common after a heart attack: I Don't Know The statin medications lower cholesterol: True To control blood pressure, lower the amount of sodium: I Don't Know If someone gets chest discomfort during walking: False Transfats are partially hydrogenated vegetable oils: True Sleep apnea that is not treated increases the risk: I Don't Know To control cholesterol, one should become a vegetarian: False Someone knows if he/she is exercising at the right level: I Don't Know Diabetes cannot be prevented with exercise & health eating: I Don't Know Stress is a large risk for heart attack: True A diet that can help lower blood pressure is rich in: True - Total Score Total Correct Responses: 14 Self-Efficacy Initial Assessment We would like to know how confident you are in doing certain activities. Please select your confidence level for:: Select your confidence level for the following using the scale 1-10 where 1 is not at all confident and 10 is totally confident. Your score is the average of all 6 responses. Fatigue: How confident are you that you can keep the fatigue caused by your disease from interfering with the things you want to do? Select Number: 8 Physical Discomfort or Pain: How confident are you that you can keep the physical discomfort or pain of your disease from interfering with the things you want to do? Select Number: 8 Emotional Distress: How confident are you that you can keep the emotional distress caused by your disease from interfering with the things you want to do? Select Number: 9 Other Symptoms or Health Problems: How confident are you that you can keep other symptoms or health problems from interfering with the things you want to do? Select Number: 6 Different Tasks and Activities: How confident are you that you can do the different tasks and activities needed to manage your health condition so as to reduce your need to see a doctor? Select Number: 8 Medication: How confident are you that you can do things other than just taking medication to reduce how much your illness affects your everyday life? Select Number: 7 Total Score:: 7 Nutrition Survey - Nutrition Survey Instructions Scoring Instructions: Scoring is as follows: Yes = 1 points. No = 0 point. Patient score that is >/=12 is considered to be at potential nutritional risk and could benefit from a referral to a registered dietitian. - Nutrition Survey Initial Have you lost >10 lbs over the past 2 months without trying?: No Are you following a special diet at home for diabetes, low fat, or low salt?: No Are you interested in meeting with a dietitian for help understanding your diet?: No Do you eat less than 3 meals a day?: Yes Do you eat fatty meats (parker, sausage, ribs, etc), fried foods, desserts, large amounts of salad dressings, margarine, butter, or cheese most days?: No Do you have food allergies? [Enter types in comment field]: No Do you eat in restaurants more than 3 times a week?: No Do you season food with salt, seasoning salt, or garlic salt?: No Do you used canned, boxed, frozen meals, or soups, seasoning packets?: No Total Score:: 1 <Reza Hernandez - Last Filed: 06/13/22 07:25> Diagnosis - General Information Personal Learning Style:: Audio/Visual Barriers to Learning: No Barriers Gave educational material for:: Treating Heart Disease, Emotions & Heart Disease, Stress Management & Relaxation, Sleep Disorders & Heart Disease, How The Heart Works, What it means to have Heart Disease, How Coronary Artery Disease is Diagnosed, Heart Procedures, What Heart Medications Do, Risk Factors & Modifications, Living an Active Life, Nutrition - Education/Goals Cardiac Rehabilitation Goals: 1. Maintain the individual as the primary focus of care. 2. To improve the patient's quality of life. 3. Identification of cardiac risk factors and provide cardiac risk factor management. 4. Enhance the psychosocial status of the patient. 5. Reconditioning enough to allow the patient to resume customary activities. 6. Control symptoms of cardiac disease Scale for measuring improvement of personal goals: Enter appropriate number in Comments. 2 = Unchanged. 3 = Slightly Better. 4 = Moderate Improvement. 5 = Met my Goal - Diagnosis & Disease Process 30 day Reassessments:: Not Met 30 day Reassessments:: Not Met 30 day Reassessments:: Not Met
[2022-06-10 11:19] VITALS: BP 130/70; BMI 33.7
== END | disposition home or self-care (01) ==
LOC: CR 10:32
PROVIDERS: PCP Family Medicine; Referring Provider Internal Medicine Cardiovascular Disease; Visit Provider Internal Medicine Cardiovascular Disease
DX: Z00.00 Encounter for general adult medical examination without abnormal findings (principal)

== ENCOUNTER 2022-06-15 13:10 | Outpatient (RCR) | payer MEDICARE, OTHER, SELFPAY ==
[2022-06-10 11:19] VITALS: BMI 33.7
== END 2022-06-15 23:59 ==
LOC: CR 13:10
PROVIDERS: PCP Family Medicine; Referring Provider Internal Medicine Cardiovascular Disease; Visit Provider Internal Medicine Cardiovascular Disease
DX: I25.10 Atherosclerotic heart disease of native coronary artery without angina pectoris (principal); I25.2 Old myocardial infarction; I10 Essential (primary) hypertension; E78.5 Hyperlipidemia, unspecified; Z95.5 Presence of coronary angioplasty implant and graft
CPT/HCPCS: 93798

== ENCOUNTER 2022-07-15 13:00 | Outpatient (RCR) | payer MEDICARE, OTHER, SELFPAY ==
[2022-06-10 11:19] VITALS: BMI 33.7
--- NOTE | 2022-07-13 12:30 | CR.ITP_ITS ---
Diagnosis - General Information Admitting Diagnosis: NONSTEMI, PCI with stent Exercise - 30-day Assessment - Visit Date of Eval: 07/13/22 Session #:: 10 - Physician Prescribed Exercise Modalities: Treadmill, Airdyne, NuStep Frequency: 3x/week for 12 weeks [36 sessions] Intensity: 60-80% of age predicted maximum heart rate reserve Current METSs:: 3.5 Target Heart Rate:: 99-130 Current RPE:: 11-12 Maximum Excercise HR:: 104 Resting Blood Pressure: 150/58 Maximum Exercise Blood Pressure: 162/70 EKG Type: NSR to ST - Outcomes & Goals Goals:: Verbalizes understanding of THR, RPE & goal METS by session 6, Documents in home exercise log/reports 30 min aerobic 5 day/wk by DC, Demonstrates accurate pulse taking by DC, Other additional outcome/goals: see below - Intervention & Plan Exercise Program Goals: Instruct on personal THR & RPE, Instruct on MET level & personal MET goal, Show patient to take own pulse /validate performance until accurate, Instruct on home exercise, Other additional plan/int - 30-day Reassessments 30 day Reassessments:: Progressing - THR explained - Physical Activity Home Exercise Physical Activity - Home Exercise: Safe Exercise, Warm-up, Self-monitoring, Cool-Down, Home Exercise > 30 min Daily, Sitting Time <3 hours/daily - Outcomes & Goals Outcomes/Goals: Demonstrates correct Warm-up/exercise Cool-Down (S3) if = 2.5 METs, Verbalizes symptoms of exercise intolerance by Session 3 (S3), Demonstrate safe equipment use (S3) & follows exercise prescrition (6), Other: See below - Intervention & Plan Plan/Intervention: Instruct warm-up & cool-down if exercising at > 2 METs, Instruct on symptoms of exercise intolerance & actions to take, Instruct & monitor on saf, Assess intial functional capacity & safety risk, Other See below - 30-day Reassessments 30 day Reassessments:: Progressing - cool down explained Nutrition - Initial Assessment Nutrition - 30-Day Assessment - Visit Date of Assessment:: 07/13/22 Session #:: 10 - Cholesterol/Lipids (Other Core Measures) Determine presence & major risk factors that modify LDL goal: Cigarette smoking, Hypertension or hypertensive medication, Low HDL cholesterol <40 mg/dL*, Family history of premature CHD in Male < 55 years: female <65 yearsFa, Age men > 45 years; women >/= 55 years Outcomes/Goals: Pt IDs own risk factors & lifestyle modifications by Session 10, Verbalizes symptoms of angina & response by session 3., Pt independently manages, Other Additional Outcomes/Goals: Intervention/Plan: Advocate for lipid panel cholesterol medication if applicable, Instruct on personal lipid levels & lipid goals/NCEP guidelines, Instruct on cholesterol, Other additional plan/int 30-day Reassessments:: Progressing - risk factors explained - Diabetes (Other Core Measures) Diabetes Type: Not Applicable - Weight Mgt (Other Care) Height: 6 ft Weight:: 113.171 kg BMI: 33.8 Outcomes/Goals: Pt sets, maintains & shows weight loss goal & trend during rehab, Other additional outcomes/goals Intervention/Plan: Instruct on ideal BMI & set weight loss goal w/patient, Assist pt to ID & incorporate diet changes for weight loss by S9, Refer to Structured Weight Loss program as appropriate, Encourage goal of using 250- 300dcal per session for weight loss, Other additional plan/interventions 30 day Reassessments:: Progressing - attending nutrition class - Healthy Eating Habits Will attend diet classes:: Yes Outcomes/Goals:: Consume diet rich in vegs,fruits,whole grain/high fiber,fish,lean meat, Limit sat/trans fats,cholesterol & added salts & sugars, Other additional outcome/goals: Intervention/Plan:: Assess current eating habits, Other Additional plan/interventions 30-day Reassessments:: Progressing - attending nitrition class - Education Gave educational materials for:: Signs & symptoms of hypoglycemia, Signs & symptoms of hyperglycemia, Relate diabetes to coronary artery disease, Healthy eating Nutrition - 60-Day Assessment Nutrition - 90-Day Assessment Nutrition - Final Assessment Core - Initial Assessment Core - 30-Day Assessment - Visit Date of Eval: 07/13/22 Session #:: 10 - Medication Compliance Preventative Medication(s):: Aspirin, Clopidogrel/P2Y12 inhibit, Statin/lipid, Beta diamond H/O mental health issues: depression, anxiety, or addiction?: No Doesn?t believe in the benefits of treatment?: No Believes medications are unnecessary or harmful?: No Has a concern about medication side effects?: No Expresses concern over the cost of medications?: No Outcomes/Goals: Verbalizes medications,desired effect & common side effects @ DC, Pt self-reports following medication regimen, Keeps card in wallet w/medications listed by DC, Other additional outcome/goals: Interventions/plans: Instruct on medication effects & side effects, Review medication list w/patient every two weeks, Instruct importance of taking meds as ordered & assist problem solving, Other additional 30-day Reassessments:: Progressing - meds reviewed with pt - Tobacco Use Tobacco Use: Cigarettes How long ago did you quit using tobacco products?: Greater than or equal to 6 months ago Do you use smokeless tobacco?: No 30-day Reassessments:: Progressing - not smoking at this time - Hypertension Hypertension Diagnosis:: Hypertension ICD-10 I10 Resting Blood Pressure:: 158/68 [place] [employer] Hypertension Guidelines: [place] [employer] Hypertension Guidelines. Normal BP Less than 120/80. Elevated BP 120/80. Hypertension Stage 1: BP 130-139/80-89. Hypertesnion Stage 2: BP 140 or higher/90 or higher. Hypertension Crisis: BP higher than 180/120 Peak Exercise Blood Pressure:: 162/70 Outcomes/Goals: Able to verbalize/achieve optimal blood pressure <130/80, Incorporates diet changes & exercise for blood pressure control by DC, Other additional outcomes/goals Interventions/plan: Instruct on optimal blood pressure, hypertension & medications, Instruct on effects of sodium, alcohol, stress, exercise &hypertension, Other additional plan/interventions 30 day Reassessments:: Progressing - meds reviewed - Tobacco Cessation Referral Smoking Cessation Referral:: No Individual Education/Counseling:: No Education Schedule Given:: Yes Core - 60-Day Assessment Core - 90 Day Assessment Core - Final Assessment Psychosocial - Initial Assess Psychosocial - 30-Day Assess - VIsit Date of Eval: 07/13/22 Session #:: 10 History of previous Mental disease:: No Psychosocial - 60-Day Assess Psychosocial - 90-Day Assess Psychosocial - Final Assessmen Patient Health Questionnaire 30-Day Re-eval Assessment 1. Little interest or pleasure in doing things: Not at all 2. Feeling down, depressed, or hopeless: Not at all 3. Trouble falling or staying asleep, or sleeping too much: Several days 4. Feeling tired or having little energy: Several days 5. Poor appetite or overeating: Not at all 6. Feeling bad about yourself -- or that you are a failure or have let yourself or your family down: Not at all 7. Trouble concentrating on things, such as reading the newspaper or watching television: Not at all 8. Moving or speaking so slowly that other people could have noticed. Or the opposite - being so fidgety or restless that you have been moving around a lot more than usual: Not at all 9. Thoughts that you would be better off , or of hurting yourself in some way: Not at all How difficult have these problems made it for you to do your work, take care of things at home, or get along with other people?: Not difficult at all Total Score: 2 Self-Efficacy 30-Day Re-eval Assessment We would like to know how confident you are in doing certain activities. Please select your confidence level for:: Select your confidence level for the following using the scale 1-10 where 1 is not at all confident and 10 is totally confident. Your score is the average of all 6 responses. Fatigue: How confident are you that you can keep the fatigue caused by your disease from interfering with the things you want to do? Select Number: 10 Physical Discomfort or Pain: How confident are you that you can keep the physical discomfort or pain of your disease from interfering with the things you want to do? Select Number: 8 Emotional Distress: How confident are you that you can keep the emotional distress caused by your disease from interfering with the things you want to do? Select Number: 8 Other Symptoms or Health Problems: How confident are you that you can keep other symptoms or health problems from interfering with the things you want to do? Select Number: 9 Different Tasks and Activities: How confident are you that you can do the different tasks and activities needed to manage your health condition so as to reduce your need to see a doctor? Select Number: 6 Medication: How confident are you that you can do things other than just taking medication to reduce how much your illness affects your everyday life? Nutrition Survey
[2022-07-13 12:39] VITALS: BP 150/58; BP 158/68; BP 162/70; BMI 33.8
== END 2022-07-15 23:59 ==
LOC: CR 13:00
PROVIDERS: PCP Family Medicine; Referring Provider Internal Medicine Cardiovascular Disease; Visit Provider Internal Medicine Cardiovascular Disease
DX: I25.10 Atherosclerotic heart disease of native coronary artery without angina pectoris (principal); I25.2 Old myocardial infarction; I10 Essential (primary) hypertension; E78.5 Hyperlipidemia, unspecified; Z95.5 Presence of coronary angioplasty implant and graft
CPT/HCPCS: 93798

== ENCOUNTER 2022-08-15 13:00 | Outpatient (RCR) | payer MEDICARE, OTHER, SELFPAY ==
[2022-07-13 12:39] VITALS: BMI 33.8
[2022-07-16 01:42] VITALS: BP 150/58; BP 158/68; BP 162/70
--- NOTE | 2022-08-10 09:42 | PCM.CR.ITP ---
Diagnosis Exercise - 60-day Assessment - Visit Date of Eval: 08/10/22 Session #:: 21 - Physician Prescribed Exercise Modalities: Treadmill, Airdyne, NuStep Frequency: 3x/week for 12 weeks [36 sessions] Intensity: 60-80% of age predicted maximum heart rate reserve Duration: 30 - 45 minutes Current METSs:: 6.0 Target Heart Rate:: 99-130 Current RPE:: 13-14 Maximum Excercise HR:: 129 Resting Blood Pressure: 138/62 Maximum Exercise Blood Pressure: 178/70 EKG Type: NSR to ST w/rare PVC. - Outcomes & Goals Goals:: Verbalizes understanding of THR, RPE & goal METS by session 6, Documents in home exercise log/reports 30 min aerobic 5 day/wk by DC, Demonstrates accurate pulse taking by DC - Intervention & Plan Exercise Program Goals: Instruct on personal THR & RPE, Instruct on MET level & personal MET goal, Show patient to take own pulse /validate performance until accurate, Instruct on home exercise - 30-day Reassessments 30 day Reassessments:: Met - Physical Activity Home Exercise Physical Activity - Home Exercise: Safe Exercise, Warm-up, Self-monitoring, Cool-Down, Home Exercise > 30 min Daily, Sitting Time <3 hours/daily - Outcomes & Goals Outcomes/Goals: Demonstrates correct Warm-up/exercise Cool-Down (S3) if = 2.5 METs, Verbalizes symptoms of exercise intolerance by Session 3 (S3), Demonstrate safe equipment use (S3) & follows exercise prescrition (6) - Intervention & Plan Plan/Intervention: Instruct warm-up & cool-down if exercising at > 2 METs, Instruct on symptoms of exercise intolerance & actions to take, Instruct & monitor on saf, Assess intial functional capacity & safety risk - 30-day Reassessments 30 day Reassessments:: Met Nutrition - Initial Assessment Nutrition - 30-Day Assessment Nutrition - 60-Day Assessment - Program Goals Nutrition Program Goals: LDL <100 optimal. 100 - 129 Near optimal. 130 - 159 Borderline High. 160 - 189 High. Total Cholesterol <200 desirable. 200 - 239 Borderline High. >/= 240 High. HDL < 40 Low >/=60 High. Triglycerides <150 desirable. <199 optimal. VlDL 5 - 40. HgbA1C <7%. BMI <25 Patient has diagnosis of Hyperlipidemia (ICD E78)?: Yes - Visit Date of Assessment:: 08/10/22 Session #:: 21 - Last Lipid drawn 06/24/2022 - Cholesterol/Lipids (Other Core Measures) Determine presence & major risk factors that modify LDL goal: Hypertension or hypertensive medication, Age men > 45 years; women >/= 55 years Outcomes/Goals: Pt IDs own risk factors & lifestyle modifications by Session 10, Verbalizes symptoms of angina & response by session 3., Pt independently manages Intervention/Plan: Instruct on personal lipid levels & lipid goals/NCEP guidelines, Instruct on cholesterol Referral to dietitian:: Yes - Medical Nutrition Therapy 30-day Reassessments:: Progressing - Diabetes (Other Core Measures) Diabetes Type: Not Applicable - Weight Mgt (Other Care) Not Applicable: No Height: 6 ft Weight:: 247 lb 8 oz BMI: 33.5 Diagnosis Overweight/Obesity BMI> 30% ICD-10 E66: Yes Diagnosis High BMI/Morbid Obesity BMI> 35% ICD-10 Z68: No Outcomes/Goals: Pt sets, maintains & shows weight loss goal & trend during rehab Intervention/Plan: Instruct on ideal BMI & set weight loss goal w/patient, Assist pt to ID & incorporate diet changes for weight loss by S9, Refer to Structured Weight Loss program as appropriate, Encourage goal of using 250-300dcal per session for weight loss 30 day Reassessments:: Not Met - Healthy Eating Habits Will attend diet classes:: Yes Outcomes/Goals:: Consume diet rich in vegs,fruits,whole grain/high fiber,fish,lean meat, Limit sat/trans fats,cholesterol & added salts & sugars Intervention/Plan:: Assess current eating habits 30-day Reassessments:: Progressing - Patient weight fluctuates between 247 and 249 but has had no weight loss substantial to reduce his BMI - Education Gave educational materials for:: Healthy eating Nutrition - 90-Day Assessment Nutrition - Final Assessment Core - Initial Assessment Core - 30-Day Assessment Core - 60-Day Assessment - Visit Date of Eval: 08/10/22 Session #:: 21 - Medication Compliance Preventative Medication(s):: Aspirin, Clopidogrel/P2Y12 inhibit, Statin/lipid, Beta diamond H/O mental health issues: depression, anxiety, or addiction?: No Doesn?t believe in the benefits of treatment?: No Believes medications are unnecessary or harmful?: No Has a concern about medication side effects?: No Expresses concern over the cost of medications?: No Outcomes/Goals: Verbalizes medications,desired effect & common side effects @ DC, Pt self-reports following medication regimen, Keeps card in wallet w/medications listed by DC Interventions/plans: Instruct on medication effects & side effects, Review medication list w/patient every two weeks, Instruct importance of taking meds as ordered & assist problem solving 30-day Reassessments:: Met - Tobacco Use Tobacco Use: Non-smoker - Hypertension Hypertension Diagnosis:: Hypertension ICD-10 I10 Resting Blood Pressure:: 138/62 - Patient BPs could reduce to under 130/80 he is currently Stage 1 Hypertensive [place] [employer] Hypertension Guidelines: [place] [employer] Hypertension Guidelines. Normal BP Less than 120/80. Elevated BP 120/80. Hypertension Stage 1: BP 130-139/80-89. Hypertesnion Stage 2: BP 140 or higher/90 or higher. Hypertension Crisis: BP higher than 180/120 Peak Exercise Blood Pressure:: 178/70 Outcomes/Goals: Able to verbalize/achieve optimal blood pressure <130/80, Incorporates diet changes & exercise for blood pressure control by DC Interventions/plan: Instruct on optimal blood pressure, hypertension & medications, Instruct on effects of sodium, alcohol, stress, exercise &hypertension 30 day Reassessments:: Progressing - Tobacco Cessation Referral Smoking Cessation Referral:: No Individual Education/Counseling:: No Education Schedule Given:: Yes Core - 90 Day Assessment Core - Final Assessment Psychosocial - Initial Assess Psychosocial - 30-Day Assess Psychosocial - 60-Day Assess - VIsit Date of Eval: 08/10/22 Session #:: 21 Not Applicable: Yes - Psychosocial Test Tool Used:: PHQ-9 Questionnaire phq-9 Severity: Severity. 1-4 Minimal Depression. 5-9 Mild Depression. 10-14 Moderate Depression. 15-19 Moderately Sever Depression. 20-27 Severe Depression. Rule: - Referral to Behavioral Health PS - Interventions: Yes Attend Stress Management Classes, No Referral to Behavioral Health if PHQ-9 score >9:, No Referral to [facility], No Referral to Physician if PHQ-9 if score is 5-9: - Outcomes/Goals: See list Psychosocial Outcomes/Goals:: ID's personal stressors & 2 strategies to manage stress by discharge - Intervention/Plan: See List Interventions/Plan:: Assess stressors,coping strategies & signs of derpression on admission, Instruct/assist pt to develop coping & personal stress Mgt strategies, Instruct patient to recognize signs & symptoms of depression, Instruct patient to recog - 30-day Reassessments: 30 day Reassessments:: Progressing Psychosocial - 90-Day Assess Psychosocial - Final Assessmen Patient Health Questionnaire 60-Day Re-eval Assessment 1. Little interest or pleasure in doing things: Not at all 2. Feeling down, depressed, or hopeless: Not at all 3. Trouble falling or staying asleep, or sleeping too much: Not at all 4. Feeling tired or having little energy: Not at all 5. Poor appetite or overeating: Not at all 6. Feeling bad about yourself -- or that you are a failure or have let yourself or your family down: Not at all 7. Trouble concentrating on things, such as reading the newspaper or watching television: Not at all 8. Moving or speaking so slowly that other people could have noticed. Or the opposite - being so fidgety or restless that you have been moving around a lot more than usual: Not at all 9. Thoughts that you would be better off , or of hurting yourself in some way: Not at all How difficult have these problems made it for you to do your work, take care of things at home, or get along with other people?: Not difficult at all Total Score: 0 Self-Efficacy 60-Day Re-eval Assessment We would like to know how confident you are in doing certain activities. Please select your confidence level for:: Select your confidence level for the following using the scale 1-10 where 1 is not at all confident and 10 is totally confident. Your score is the average of all 6 responses. Fatigue: How confident are you that you can keep the fatigue caused by your disease from interfering with the things you want to do? Select Number: 10 Physical Discomfort or Pain: How confident are you that you can keep the physical discomfort or pain of your disease from interfering with the things you want to do? Select Number: 9 Emotional Distress: How confident are you that you can keep the emotional distress caused by your disease from interfering with the things you want to do? Select Number: 9 Other Symptoms or Health Problems: How confident are you that you can keep other symptoms or health problems from interfering with the things you want to do? Select Number: 10 Different Tasks and Activities: How confident are you that you can do the different tasks and activities needed to manage your health condition so as to reduce your need to see a doctor? Select Number: 8 Medication: How confident are you that you can do things other than just taking medication to reduce how much your illness affects your everyday life? Select Number: 9 Total Score:: 9 Nutrition Survey
[2022-08-10 09:51] VITALS: BP 138/62; BP 178/70; BMI 33.5
== END 2022-08-15 23:59 ==
LOC: CR 13:00
PROVIDERS: PCP Family Medicine; Referring Provider Internal Medicine Cardiovascular Disease; Visit Provider Internal Medicine Cardiovascular Disease
DX: I25.10 Atherosclerotic heart disease of native coronary artery without angina pectoris (principal); I25.2 Old myocardial infarction; I10 Essential (primary) hypertension; E78.5 Hyperlipidemia, unspecified; Z95.5 Presence of coronary angioplasty implant and graft
CPT/HCPCS: 93798

== ENCOUNTER 2022-09-14 13:00 | Outpatient (RCR) | payer MEDICARE, OTHER, SELFPAY ==
[2022-08-10 09:51] VITALS: BMI 33.5
[2022-08-16 00:35] VITALS: BP 138/62; BP 178/70
--- NOTE | 2022-09-12 07:20 | PCM.CR.ITP ---
Diagnosis Exercise - Final/Discharge - Visit Date of Eval: 09/12/22 Session #:: 35 - Physician Prescribed Exercise Modalities: Treadmill, Rower, Airdyne, NuStep Frequency: 3x/week for 12 weeks [36 sessions] Intensity: 60-80% of age predicted maximum heart rate reserve Duration: 30 - 45 minutes Current METSs:: 7.0 Target Heart Rate:: 99-130 Current RPE:: 12-14 Maximum Excercise HR:: 126 Resting Blood Pressure: 118/52 Maximum Exercise Blood Pressure: 170/70 EKG Type: NSR to Sinus Tach w/rare PVC and PACs. - Outcomes & Goals Goals:: Verbalizes understanding of THR, RPE & goal METS by session 6, Documents in home exercise log/reports 30 min aerobic 5 day/wk by DC, Demonstrates accurate pulse taking by DC - Intervention & Plan Exercise Program Goals: Instruct on personal THR & RPE, Instruct on MET level & personal MET goal, Show patient to take own pulse /validate performance until accurate, Instruct on home exercise - 30-day Reassessments 30 day Reassessments:: Met - Physical Activity Home Exercise Physical Activity - Home Exercise: Safe Exercise, Warm-up, Self-monitoring, Cool-Down, Home Exercise > 30 min Daily, Sitting Time <3 hours/daily - Outcomes & Goals Outcomes/Goals: Demonstrates correct Warm-up/exercise Cool-Down (S3) if = 2.5 METs, Verbalizes symptoms of exercise intolerance by Session 3 (S3), Demonstrate safe equipment use (S3) & follows exercise prescrition (6) - Intervention & Plan Plan/Intervention: Instruct warm-up & cool-down if exercising at > 2 METs, Instruct on symptoms of exercise intolerance & actions to take, Instruct & monitor on saf, Assess intial functional capacity & safety risk - 30-day Reassessments 30 day Reassessments:: Met - Patient plans to continue regular exercise, he appreciates the way he feels since started CR. Nutrition - Initial Assessment Nutrition - 30-Day Assessment Nutrition - 60-Day Assessment Nutrition - 90-Day Assessment Nutrition - Final Assessment - Program Goals Nutrition Program Goals: LDL <100 optimal. 100 - 129 Near optimal. 130 - 159 Borderline High. 160 - 189 High. Total Cholesterol <200 desirable. 200 - 239 Borderline High. >/= 240 High. HDL < 40 Low >/=60 High. Triglycerides <150 desirable. <199 optimal. VlDL 5 - 40. HgbA1C <7%. BMI <25 Patient has diagnosis of Hyperlipidemia (ICD E78)?: Yes - Visit Date of Assessment:: 09/12/22 Session #:: 35 - last drawn 11/24/2021 - Cholesterol/Lipids (Other Core Measures) Determine presence & major risk factors that modify LDL goal: Hypertension or hypertensive medication, Family history of premature CHD in Male < 55 years: female <65 yearsFa, Age men > 45 years; women >/= 55 years Outcomes/Goals: Pt IDs own risk factors & lifestyle modifications by Session 10, Verbalizes symptoms of angina & response by session 3., Pt independently manages Intervention/Plan: Instruct on personal lipid levels & lipid goals/NCEP guidelines, Instruct on cholesterol Referral to dietitian:: No 30-day Reassessments:: Progressing - Diabetes (Other Core Measures) Diabetes Type: Not Applicable - Weight Mgt (Other Care) Not Applicable: No Height: 6 ft Weight:: 243 lb 8 oz - down from 249 BMI: 33.0 Diagnosis Overweight/Obesity BMI> 30% ICD-10 E66: Yes Diagnosis High BMI/Morbid Obesity BMI> 35% ICD-10 Z68: No Outcomes/Goals: Pt sets, maintains & shows weight loss goal & trend during rehab Intervention/Plan: Instruct on ideal BMI & set weight loss goal w/patient, Assist pt to ID & incorporate diet changes for weight loss by S9, Encourage goal of using 250-300dcal per session for weight loss 30 day Reassessments:: Progressing - Healthy Eating Habits Will attend diet classes:: Yes Outcomes/Goals:: Consume diet rich in vegs,fruits,whole grain/high fiber,fish,lean meat, Limit sat/trans fats,cholesterol & added salts & sugars Intervention/Plan:: Assess current eating habits 30-day Reassessments:: Met - Education Gave educational materials for:: Healthy eating Core - Initial Assessment Core - 30-Day Assessment Core - 60-Day Assessment Core - 90 Day Assessment Core - Final Assessment - Visit Date of Eval: 09/12/22 Session #:: 35 - Medication Compliance Preventative Medication(s):: Aspirin, Clopidogrel/P2Y12 inhibit, Statin/lipid, Beta diamond H/O mental health issues: depression, anxiety, or addiction?: No Doesn?t believe in the benefits of treatment?: No Believes medications are unnecessary or harmful?: No Has a concern about medication side effects?: No Expresses concern over the cost of medications?: No Outcomes/Goals: Verbalizes medications,desired effect & common side effects @ DC, Pt self-reports following medication regimen, Keeps card in wallet w/medications listed by DC Interventions/plans: Instruct on medication effects & side effects, Review medication list w/patient every two weeks, Instruct importance of taking meds as ordered & assist problem solving 30-day Reassessments:: Met - Tobacco Use Tobacco Use: Non-smoker - Hypertension Hypertension Diagnosis:: Hypertension ICD-10 I10 Resting Blood Pressure:: 118/52 - well controlled [place] [employer] Hypertension Guidelines: [place] [employer] Hypertension Guidelines. Normal BP Less than 120/80. Elevated BP 120/80. Hypertension Stage 1: BP 130-139/80-89. Hypertesnion Stage 2: BP 140 or higher/90 or higher. Hypertension Crisis: BP higher than 180/120 Peak Exercise Blood Pressure:: 170/70 Outcomes/Goals: Able to verbalize/achieve optimal blood pressure <130/80, Incorporates diet changes & exercise for blood pressure control by DC Interventions/plan: Instruct on optimal blood pressure, hypertension & medications, Instruct on effects of sodium, alcohol, stress, exercise &hypertension 30 day Reassessments:: Met - Tobacco Cessation Referral Smoking Cessation Referral:: No Individual Education/Counseling:: No Education Schedule Given:: Yes Psychosocial - Initial Assess Psychosocial - 30-Day Assess Psychosocial - 60-Day Assess Psychosocial - 90-Day Assess Psychosocial - Final Assessmen - VIsit Date of Eval: 09/12/22 Session #:: 35 Not Applicable: Yes History of previous Mental disease:: No - Psychosocial Test Tool Used:: [employer] [place] QOL Cardiac, PHQ-9 Questionnaire phq-9 Severity: Severity. 1-4 Minimal Depression. 5-9 Mild Depression. 10-14 Moderate Depression. 15-19 Moderately Sever Depression. 20-27 Severe Depression. Rule: - Referral to Behavioral Health PS - Interventions: Yes Attend Stress Management Classes, No Referral to Behavioral Health if PHQ-9 score >9:, No Referral to [facility], No Referral to Physician if PHQ-9 if score is 5-9: - Outcomes/Goals: See list Psychosocial Outcomes/Goals:: ID's personal stressors & 2 strategies to manage stress by discharge - Intervention/Plan: See List Interventions/Plan:: Assess stressors,coping strategies & signs of derpression on admission, Instruct/assist pt to develop coping & personal stress Mgt strategies, Instruct patient to recognize signs & symptoms of depression, Instruct patient to recog - 30-day Reassessments: 30 day Reassessments:: Met - using stress management skills even on his job. Patient Health Questionnaire Discharge Assessment 1. Little interest or pleasure in doing things: Not at all 2. Feeling down, depressed, or hopeless: Not at all 3. Trouble falling or staying asleep, or sleeping too much: Not at all 4. Feeling tired or having little energy: Not at all 5. Poor appetite or overeating: Not at all 6. Feeling bad about yourself -- or that you are a failure or have let yourself or your family down: Not at all 7. Trouble concentrating on things, such as reading the newspaper or watching television: Not at all 8. Moving or speaking so slowly that other people could have noticed. Or the opposite - being so fidgety or restless that you have been moving around a lot more than usual: Not at all 9. Thoughts that you would be better off , or of hurting yourself in some way: Not at all How difficult have these problems made it for you to do your work, take care of things at home, or get along with other people?: Not difficult at all Total Score: 0 Self-Efficacy Discharge Assessment We would like to know how confident you are in doing certain activities. Please select your confidence level for:: Select your confidence level for the following using the scale 1-10 where 1 is not at all confident and 10 is totally confident. Your score is the average of all 6 responses. Fatigue: How confident are you that you can keep the fatigue caused by your disease from interfering with the things you want to do? Select Number: 10 Physical Discomfort or Pain: How confident are you that you can keep the physical discomfort or pain of your disease from interfering with the things you want to do? Select Number: 10 Emotional Distress: How confident are you that you can keep the emotional distress caused by your disease from interfering with the things you want to do? Select Number: 10 Other Symptoms or Health Problems: How confident are you that you can keep other symptoms or health problems from interfering with the things you want to do? Select Number: 10 Different Tasks and Activities: How confident are you that you can do the different tasks and activities needed to manage your health condition so as to reduce your need to see a doctor? Select Number: 10 Medication: How confident are you that you can do things other than just taking medication to reduce how much your illness affects your everyday life? Select Number: 10 Total Score:: 10 Nutrition Survey - Nutrition Survey Discharge Have you lost >10 lbs over the past 2 months without trying?: No Are you following a special diet at home for diabetes, low fat, or low salt?: No Are you interested in meeting with a dietitian for help understanding your diet?: No Do you eat less than 3 meals a day?: Yes Do you eat fatty meats (parker, sausage, ribs, etc), fried foods, desserts, large amounts of salad dressings, margarine, butter, or cheese most days?: No Do you have food allergies? [Enter types in comment field]: No Do you eat in restaurants more than 3 times a week?: No Do you season food with salt, seasoning salt, or garlic salt?: No Do you used canned, boxed, frozen meals, or soups, seasoning packets?: No Total Score:: 1
[2022-09-12 07:27] VITALS: BP 118/52; BP 170/70; BMI 33.0
== END 2022-09-14 23:59 ==
LOC: CR 13:00
PROVIDERS: PCP Family Medicine; Referring Provider Internal Medicine Cardiovascular Disease; Visit Provider Internal Medicine Cardiovascular Disease
DX: I25.10 Atherosclerotic heart disease of native coronary artery without angina pectoris (principal); I25.2 Old myocardial infarction; I10 Essential (primary) hypertension; E78.5 Hyperlipidemia, unspecified; Z95.5 Presence of coronary angioplasty implant and graft
CPT/HCPCS: 93798

== ENCOUNTER → 2022-12-15 | Outpatient (CLI) | payer MEDICARE, OTHER, SELFPAY ==
[2022-09-12 07:27] VITALS: BMI 33.0
[2022-12-15 15:45] LABS: Absolute Neutrophil Count 3.2 X10^3/uL (2.0-7.7); Basophil# 0.04 X10^3/uL; Basophil% 0.7 % (0-1); Eosinophil# 0.13 X10^3/uL; Eosinophils% 2.3 % (0-5); Hematocrit 39.9 % (40-54); Hemoglobin 13.1 g/dL (13.0-16.5); Lymphocyte % 26.9 % (19-41); Mean Corp Hgb Conc 32.8 g/dL (32-36); Mean Corpuscular Volume 94.3 fL (80-94); Mean Platelet Vol. 9.5 fl (6.2-12.0); Monocyte# 0.72 X10^3/uL; Monocyte% 12.9 % (0-10); NRBC Flagged by Analyzer 0 % (0-5); Neutrophil # 3.16 X10^3/uL (2.7-7.7); Neutrophil % 56.8 % (47-70); Platelet Count 166 K/mm3 (150-450); RBC Distribution Width CV 13.5 % (11.6-14.6); RBC Distribution Width SD 46.2 fl (35.1-43.9); Red Blood Count 4.23 M/mm3 (4.6-6.2); White Blood Count 5.6 K/mm3 (4.4-11.0)
[2022-12-15 16:31] LABS: ALB/GLOB Ratio 0.9 RATIO (0.9-2.4); AST(SGOT) 23 U/L (15-37); Alanine Aminotransfer ALT/SGPT 24 U/L (16-61); Albumin, Serum 3.7 g/dL (3.2-5.0); Alkaline Phosphatase 110 U/L (45-117); Anion Gap 4 (5-15); BUN 18 mg/dL (7-18); BUN/Creat Ratio 20.6 RATIO (10-20); Calcium,Total 9.3 mg/dL (8.5-10.1); Chloride 110 mmol/L (98-107); Cholesterol 133 mg/dL (200); Creatinine, Serum 0.87 mg/dL (0.70-1.30); EST Glomerular Filtration Rate 92 mL/min (>60); Est Glom Filt Rate - Afr Amer 112 mL/min (>60); Glucose 90 mg/dL (74-106); High Density Lipoprotein 68 mg/dL; Magnesium 2.1 mg/dL (1.6-2.6); Potassium 4.4 mmol/L (3.5-5.1); Protein, Total 7.7 g/dL (6.4-8.2); Sodium Level 142 mmol/L (136-145); Thyroid Stim Hormone (TSH) 2.01 uIU/mL (0.358-3.74); Triglycerides 66 mg/dL; Very Low Density Lipoprotein 13 mg/dL (5-40)
== END | disposition home or self-care (01) ==
LOC: LAB 14:40
PROVIDERS: PCP Family Medicine; Visit Provider Physician Assistant Medical
DX: E78.5 Hyperlipidemia, unspecified (principal); I10 Essential (primary) hypertension; R00.2 Palpitations; I25.10 Atherosclerotic heart disease of native coronary artery without angina pectoris
CPT/HCPCS: 36415; 80053; 80061; 83735; 84443; 85025

== ENCOUNTER → 2023-01-06 | Outpatient (CLI) | payer MEDICARE, OTHER, SELFPAY ==
[2022-09-12 07:27] VITALS: BMI 33.0
== END | disposition home or self-care (01) ==
LOC: PSN 11:59
PROVIDERS: PCP Family Medicine; Visit Provider Physician Assistant Medical
DX: R00.2 Palpitations (principal)
CPT/HCPCS: 93225; 93226

== ENCOUNTER → 2023-06-26 | Outpatient (CLI) | payer MEDICARE, OTHER, SELFPAY ==
[2022-09-12 07:27] VITALS: BMI 33.0
[2023-06-26 13:21] LABS: ALB/GLOB Ratio 1.1 RATIO (0.9-2.4); AST(SGOT) 21 U/L (15-37); Alanine Aminotransfer ALT/SGPT 30 U/L (16-61); Albumin, Serum 3.7 g/dL (3.2-5.0); Alkaline Phosphatase 118 U/L (45-117); Anion Gap 7 (5-15); BUN 16 mg/dL (7-18); BUN/Creat Ratio 17.7 RATIO (10-20); Calcium,Total 8.7 mg/dL (8.5-10.1); Chloride 109 mmol/L (98-107); Cholesterol 139 mg/dL (200); EST Glomerular Filtration Rate 89 mL/min (>60); Est Glom Filt Rate - Afr Amer 107 mL/min (>60); Globulin 3.5 g/dL (2.2-4.2); Glucose 89 mg/dL (74-106); High Density Lipoprotein 62 mg/dL; PSA,Total - Annual Screen 1.43 ng/mL (0.00-4.00); Potassium 4.2 mmol/L (3.5-5.1); Protein, Total 7.2 g/dL (6.4-8.2); Sodium Level 143 mmol/L (136-145); Triglycerides 97 mg/dL; Very Low Density Lipoprotein 19 mg/dL (5-40)
== END | disposition home or self-care (01) ==
LOC: MFPLAB 09:48
PROVIDERS: PCP Family Medicine; Visit Provider Family Medicine
DX: E78.00 Pure hypercholesterolemia, unspecified (principal); E80.7 Disorder of bilirubin metabolism, unspecified; Z12.5 Encounter for screening for malignant neoplasm of prostate
CPT/HCPCS: 36415; 80053; 80061; 84153; G0103

== ENCOUNTER → 2023-12-27 | Outpatient (CLI) | payer MEDICARE, OTHER, SELFPAY ==
[2022-09-12 07:27] VITALS: BMI 33.0
[2023-12-27 13:02] LABS: ALB/GLOB Ratio 1.1 RATIO (0.9-2.4); AST(SGOT) 25 U/L (15-37); Alanine Aminotransfer ALT/SGPT 32 U/L (16-61); Albumin, Serum 3.6 g/dL (3.2-5.0); Alkaline Phosphatase 96 U/L (45-117); Anion Gap 7 (5-15); BUN 24 mg/dL (7-18); BUN/Creat Ratio 24.6 RATIO (10-20); Calcium,Total 8.8 mg/dL (8.5-10.1); Chloride 109 mmol/L (98-107); Cholesterol 118 mg/dL (200); Creatinine, Serum 0.98 mg/dL (0.70-1.30); EST Glomerular Filtration Rate 81 mL/min (>60); Est Glom Filt Rate - Afr Amer 98 mL/min (>60); Globulin 3.4 g/dL (2.2-4.2); Glucose 112 mg/dL (74-106); High Density Lipoprotein 60 mg/dL; PSA,Total - Annual Screen 1.15 ng/mL (0.00-4.00); Potassium 4.1 mmol/L (3.5-5.1); Sodium Level 142 mmol/L (136-145); Triglycerides 77 mg/dL; Very Low Density Lipoprotein 15 mg/dL (5-40)
== END | disposition home or self-care (01) ==
LOC: MFPLAB 09:37
PROVIDERS: PCP Family Medicine; Visit Provider Family Medicine
DX: R17 Unspecified jaundice (principal); E78.5 Hyperlipidemia, unspecified; Z12.5 Encounter for screening for malignant neoplasm of prostate
CPT/HCPCS: 36415; 80053; 80061; 84153; G0103

== ENCOUNTER → 2024-06-03 | Outpatient (CLI) | payer MEDICARE, OTHER, SELFPAY ==
[2022-09-12 07:27] VITALS: BMI 33.0
--- NOTE | 2024-06-03 15:32 | RAD_ITS ---
STUDY: X-RAY - PELVIS AND LEFT HIP REASON FOR EXAM: Male, 69 years old. PAIN TECHNIQUE: 3 views of the pelvis and left hip. COMPARISON: None. FINDINGS: There is a non-specific bowel gas pattern. Normal visualized soft tissue structures. Normal bilateral iliac wings, sacroiliac joints and visualized sacrum. Normal bilateral superior and inferior pubic rami. Normal pubic symphysis. Normal bilateral ischial tuberosities. Normal visualized femoral heads bilaterally. There is mild osteoarthritic spur formation of the acetabular rims bilaterally. Intact hip joints. There is no demonstrated acute fracture. RAD/HIP, UNI W/ Pelvis 2-3 Views IMPRESSION: Mild degenerative arthrosis of the hip joints bilaterally. No demonstrated acute fracture. Electronically Signed: Timothy Graff MD at 9:33 EDT ,
== END | disposition home or self-care (01) ==
LOC: MTRAD 15:31
PROVIDERS: PCP Family Medicine; Referring Provider Family Medicine; Visit Provider Family Medicine
DX: M25.552 Pain in left hip (principal)
CPT/HCPCS: 73502

== ENCOUNTER → 2024-07-01 | Outpatient (CLI) | payer MEDICARE, OTHER, SELFPAY ==
[2022-09-12 07:27] VITALS: BMI 33.0
[2024-07-01 18:18] LABS: AST(SGOT) 16 U/L (15-37); Alanine Aminotransfer ALT/SGPT 25 U/L (16-61); Albumin, Serum 3.7 g/dL (3.2-5.0); Alkaline Phosphatase 83 U/L (45-117); Anion Gap 9 (5-15); BUN 17 mg/dL (7-18); BUN/Creat Ratio 17.6 RATIO (10-20); Calcium,Total 9.4 mg/dL (8.5-10.1); Chloride 106 mmol/L (98-107); Creatinine, Serum 0.97 mg/dL (0.70-1.30); EST Glomerular Filtration Rate 82 mL/min (>60); Est Glom Filt Rate - Afr Amer 99 mL/min (>60); Globulin 3.6 g/dL (2.2-4.2); Glucose 82 mg/dL (74-106); Potassium 3.9 mmol/L (3.5-5.1); Protein, Total 7.3 g/dL (6.4-8.2); Sodium Level 142 mmol/L (136-145)
== END | disposition home or self-care (01) ==
LOC: MFPLAB 13:49
PROVIDERS: PCP Family Medicine; Visit Provider Family Medicine
DX: I10 Essential (primary) hypertension (principal)
CPT/HCPCS: 36415; 80053

== ENCOUNTER → 2024-07-10 | Outpatient (CLI) | payer MEDICARE, OTHER, SELFPAY ==
[2022-09-12 07:27] VITALS: BMI 33.0
--- NOTE | 2024-07-10 09:13 | US_ITS ---
PROCEDURES: ULTRASOUND AORTA REASON FOR EXAM: Male, 69 years old. Screening TECHNIQUE: Ultrasound evaluation of the aorta was performed with real-time and static moeller-scale imaging. COMPARISON: None. FINDINGS: There is atherosclerotic plaque formation of the abdominal aorta. Aorta measures: Proximal 2.4 cm. Middle 1.7 cm. Distal 1.8 cm. Aorta measure transversely: Proximal 2.8 cm. Middle 1.9 cm. Distal 1.7 cm. Right iliac artery measures: 1.2 cm. Right iliac artery measure transversely: 1. cm. Left iliac artery measures: 1.2 cm. Left iliac artery measure transversely: 1.3 cm. There is no demonstrated aneurysm.. US/Aorta IMPRESSION: Atherosclerotic plaque formation. No aneurysm is seen. Electronically Signed: Parish Winn MD at 14:52 EDT ,
== END | disposition home or self-care (01) ==
LOC: US 09:13
PROVIDERS: PCP Family Medicine; Referring Provider Registered Nurse; Visit Provider Registered Nurse
DX: Z13.6 Encounter for screening for cardiovascular disorders (principal)
CPT/HCPCS: 76775